=== PATIENT | male | born 1945 | race Caucasian/White ===

== ENCOUNTER → 2016-09-19 | Outpatient (CLI) | payer MEDICARE ==
[~2016-09-19] MED LIST: AMLO5TAB2 PO; ASPI-693 PO; ATOR20TA66 PO; ATOR40TA70 PO; BUDE10.2 IH; BUDE6HFA IH; CATHETER FLUSH 10 ML SYR IV PRN; CEPH500C PO; CITA10TA70 PO; CLOP75TA PO; CLOP75TA28 PO; DCS100C PO; DOXY100C42 PO; HYDR-3454 PO; LEVO25TA5 PO; LOSA1TAB19 PO; LOSA1TAB20 PO; MONT10TA24 PO; NF-GLIP2.5 PO; NITR0.4T SL; OMEG-11 PO; PANT40TA3 PO; PNT40TEC PO; TADA5TAB2 PO; TRAZ-144 PO; VARD20TA30 PO
[2016-09-19 13:01] VITALS: BP 155/88
--- NOTE | 2016-09-20 08:46 | STRESS TEST ---
PROCEDURE PHYSICIAN: DELORES CHENEY DATE OF PROCEDURE: 09/19/2016 RESTING AND POST EXERCISE TECHNETIUM 99M TETROFOSMIN SPECT CT IMAGING ORDERING PHYSICIAN: Tabby Martinez APRN PRIMARY PHYSICIAN: Dr. Cruz. OTHER PHYSICIAN: Dr. Cheney. CLINICAL DIAGNOSES: 1. Chest discomfort. 2. Coronary artery disease. Baseline images were carried out after injection of 10.2 mCi of technetium 99m tetrofosmin. This was followed by exercise on a treadmill. Jacob protocol was employed. Isolated premature ventricular contractions were seen throughout this study, including during the exercise phase. During the recovery phase, there were more premature ventricular contractions, including couplets. The patient exhibited a rate response to exercise but the blood pressure response was hypertensive. The test was stopped on account of fatigue. He also noted some chest discomfort with exercise. In the recovery phase, there was up to 1.[address] segment depression. Review of images at rest and following stress, indicates a small amount of basal inferior perfusion defect. This is transient. Gated images show normal regional wall motion. Normal global left ventricular systolic function. Left ventricular ejection fraction is calculated to be 58%. Left ventricular end-diastolic volume is 93 mL. CONCLUSIONS: 1. This study is indicative of a small amount of basal inferior ischemia. 2. Normal regional wall motion. 3. Normal global left ventricular systolic function with a calculated ejection fraction of 58%. Job ID: [id number] Dictated Date: 09/19/2016 17:26:19 Heading And Priming Operator Date: 09/20/2016 08:41:18 / ki
== END ==
LOC: CARD 11:09
PROVIDERS: ATTEND Nurse Practitioner Family
DX: I25.10 Atherosclerotic heart disease of native coronary artery without angina pectoris (principal); I65.23 Occlusion and stenosis of bilateral carotid arteries; I10 Essential (primary) hypertension; R06.02 Shortness of breath; R07.89 Other chest pain
CPT/HCPCS: 78452; 93017

== ENCOUNTER 2016-10-02 14:40 | Day surgery (SDC) | payer MEDICARE ==
[~2016-10-02] VITALS: Ht 180.3 cm; Wt 99.9 kg
[2016-10-02 14:40] VITALS: BP 126/59
[~2016-10-02 14:40] MED LIST changes: -AMLO5TAB2 PO; -ATOR40TA70 PO; -BUDE10.2 IH; -CLOP75TA28 PO; -LEVO25TA5 PO; -LOSA1TAB19 PO; -MONT10TA24 PO; -NF-GLIP2.5 PO; -PANT40TA3 PO
[2016-10-02] MEDS ORDERED: CLOPIDOGREL 300 MG (PLAVIX) TABLET PO NR (15:00)
--- NOTE | 2016-10-02 15:10 | History & Physicial-Cardiolgy ---
HPI-Cardiology Cardiology Consultation: Date of Consultation 10/02/16 Date of Admission Attending Physician Jeannette Estrada MD Admitting Physician Jeanette Cruz MD Consulting Physician Jeannette ESTRADA MD HPI: Chief Complaint: Chest pain this is a 71-year-old gentleman with history of COPD, previous history of smoking, diabetes, hypertension, hyperlipidemia, known history of significant coronary artery disease with multiple stents placed in the past. he is a patient of Dr. Cheney; however he is having recurrent worse chest discomfort therefore he was sent from Dr. Cheney's office to see me. He presents with recurrent worsening chest pain.chest pain is substernal and recurrent. It is associated with exertion. Rest makes it better. He denies any other significant associated factors. He had a stress test done on 09/19/2016 which was abnormal with ischemia in the basal and inferior regions. Review of Systems-Cardiology Review of Systems Constitutional: No As described under HPI, No no symptoms reported, No chills, No fever, No lightheadedness, No malaise, No tiredness, No weight loss, No weight gain, No other Eyes: No As described under HPI, No no symptoms reported, No blindness, No blurred vision, No contact lenses, No drainage, No decreased acuity, No foreign body sensation, No glasses, No inflammation, No pain, No photophobia, No previous injury, No shadows, No tunnel vision, No other, No vision change Ears/Nose/Throat: No As described under HPI, No no symptoms reported, No chronic hearing loss, No epistaxis, No ear discharge, No ear pain, No loose teeth, No mouth pain, No mouth swelling, No nasal drainage, No nose pain, No recent hearing loss, No throat pain, No throat swelling, No ulcerations, No other Respiratory: No no symptoms reported, No As described under HPI, No cough, No orthopnea, No shortness of breath, No SOB with excertion, No SOB at rest, No stridor, No wheezing, No other Cardiovascular: No no symptoms reported, No As described under HPI, chest pain , No edema, No irregular heart rate, No lightheadedness, No palpitations, No syncope, No other Gastrointestinal: No no symptoms reported, No As described under HPI, No abdomen distended, No abdominal pain, No blood streaked bowels, No constipation , No diarrhea, No difficulty swallowing, No nausea, No poor appetite, No poor fluid intake, No rectal bleeding, No vomiting, No other, No nausea/vomiting/ diarrhea, No stool coloration changes Genitourinary: No no symptoms reported, No As described under HPI, No burning, No dysuria, No discharge, No frequency, No flank pain, No hematuria, No incontinence, No pain, No urgency, No other, No urine frequency changes, No urine coloration changes Musculoskeletal: No no symptoms reported, No As describe under HPI, No back pain, No gout, No joint pain, No joint swelling, No muscle pain, No muscle stiffness, No neck pain, No other Skin: No no symptoms reported, No As described under HPI, No change in color, No change in hair/nails, No dryness, No lesions, No lumps, No rash, No other, No skin related problems, No ulcerations, No rash on exposed areas, No ulcerations on exposed areas Psychiatric/Neurological: No As described under HPI, No anxiety, No depression , No emotional problems, No focal weakness, No headache, No no symptoms reported , No numbness, No other, No pre-existing deficit, No seizure, No syncope, No tingling, No tremors, No weakness TNH-Dndtci-Mybcix Hx Patient Social History Marrital Status: Smoking Status: Former Smoker Former smoker/When Quit: Jan 02, 2012 Immunizations Up To Date Tetanus Booster (TDap): Less than 5yrs Past Medical History PMH As described under Assessment. Family Medical History Family History: Alcoholism G8 BROTHER, Onset:20's - 25 Alzheimer's disease 19 FATHER, Onset:60 years & older Cardiovascular disease 19 FATHER, Onset:60 years & older 19 MOTHER, Onset:60 years & older Cataracts 19 MOTHER, Onset:60 years & older Completed stroke 19 FATHER, Onset:60 years & older Dementia 19 FATHER, Onset:60 years & older Diabetes mellitus 19 FATHER, Onset:60 years & older 19 MOTHER, Onset:60 years & older Hypercholesterolemia 19 FATHER, Onset:60 years & older 19 MOTHER, Onset:60 years & older Hypertension 19 FATHER, Onset:Unknown 19 MOTHER, Onset:Unknown Myocardial infarction 19 FATHER, Onset:60 years & older 19 MOTHER Respiratory disorder G8 BROTHER, Onset:50's - 60 No Family History of: AIDS Abdominal aortic aneurysm [place]'s disease Aphasia Arthritis Asthma Cancer of mouth Colon cancer Congenital disease Congenital heart disease Coronary thrombosis Cystic fibrosis Deafness or hearing loss Drug abuse Dysphasia Fibrocystic disease of breast Gastroenteritis Glaucoma Headache disorder Infertility Kidney disease Neoplasm Not obtainable due to adoption Osteoporosis Parkinson's disease Prostate cancer Psychosocial problem Seizure disorder Severe allergy Thyroid disease Tuberculosis Visual disorder Allergies and Home Medications Allergies Coded Allergies: No Known Drug Allergies (Unverified , 10/29/14) Home Medications Aspirin 81 Mg Tab.chew, 81 MG PO DAILY, (Reported) Atorvastatin 20 Mg Tablet, 40 MG PO HS, (Reported) Budesonide/Formoterol Fumarate 1 Inhaler Aero, 2 PUFF IH BID, (Reported) Cephalexin Monohydrate 500 Mg Capsule, 1 EACH PO QID, #28 Prescribed by: HAO TRAMMELL on 01/03/15 0959 Citalopram Hydrobromide 10 Mg Tablet, 10 MG PO DAILY, (Reported) Takes at 1200 Clopidogrel Bisulfate 75 Mg Tablet, 75 MG PO DAILY, (Reported) Takes at 1200 Doxycycline Monohydrate 100 Mg Capsule, 100 MG PO BID for 10 Days, (Reported) Losartan/Hydrochlorothiazide 1 Each Tablet, 1 EACH PO DAILY, (Reported) Nitroglycerin 0.4 Mg Tab.subl, 0.4 MG SL PRN, (Reported) Dexter-3S/Dha/Epa/Fish Oil 1 Each Capsule, 1,200 MG PO BID, (Reported) Pantoprazole Sod 40 Mg Tab, 40 MG PO DAILY, (Reported) Tadalafil 5 Mg Tablet, 5 MG PO DAILY, (Reported) Takes at 12:00 Trazodone Hcl 50 Mg Tablet, 50 MG PO HS PRN for SLEEP, (Reported) Physical Exam-Cardiology Physical Exam Vital Signs/I&O Capillary Refill : Constitutional: No appears stated age, No AAO x 3, No apparent distress, No PERRL, No well-developed, No well-nourished, No other HEENT: No PERRL, No normal ENT inspection, No TMs normal, No pharynx normal, No scleral icterus (R), No scleral icterus (L), No pale conjunctivae (R), No pale conjunctivae (L), No photophobia, No TM abnormal (R), No TM abnormal (L), No pharyngeal erythema, No tonsillar exudate, No other, No discharge, No EOMI, No hearing is well preserved, No hard of hearing, No oral hygience is good, No ulceration, No xanthelasmas are seen Neck: No non-tender, No full range of motion, No supple, No normal inspection, No carotid bruit, No limited range of motion, No lymphadenopathy (R), No lymphadenopathy (L), No tender lateral, No tender midline, No thyromegaly, No other, No carotid pulses are 2 + bilaterally, No with good upstrokes Respiratory: No accessory muscle use, No respiratory distress, No chest tender , No chest expansion is symmetric, No chest is bilaterally symmetric, No lungs clear to percussion, No lungs clear to auscultation, No crackles, No rhonchi, No rales, No stridor, No wheezing, No pleural rub, No other Cardiovascular: No regular rate-rhythm, No irregularly irregular, No extra beats, No parasternal heave is noted, No JVD, No edema, No bradycardia, No tachycardia, No point of maximal impulse, No cardiac thrills are palpable, No S1 and S2, No gallop/S3, No gallop/S4, No diastolic murmur, No systolic murmur, No friction rub, No click, No other Gastrointestinal: No tender, No soft, No round, No distended, No pulsatile mass , No organomegaly, No guarding, No rebound, No tenderness, No hernia, No mass, No audible bowel sounds, No abnormal bowel sounds, No abdominal bruits, No spleenomegaly, No other Rectal: deferred Extremities: No normal range of motion, No non-tender, No normal inspection, No pedal edema, No calf tenderness, No normal capillary refill, No pelvis stable , No calf tenderness, No inflammation, No pedal edema, No slow capillary refill , No swelling, No other, No abrasion, No clubbing, No cyanosis, No ecchymosis, No laceration, No no lower extremity edema bilateral, No significant edema, No tenderness, No wound Neurologic/Psychiatric: No rescue boat operator II-XII nml as tested, No no motor/sensory deficits, No alert, No normal mood/affect, No oriented x 3, No abnormal cerebellar tests, No abnormal rescue boat operator II-XII, No abnormal gait, No aphasia, No EOM palsy, No facial droop, No motor weakness, No sensory deficit, No depressed affect, No disoriented x 3, No other, No grossly intact, No power is 5/5 both on sides ECG Impression ECG Comment EKG in the office today showed sinus rhythm with no significant ST deviation however inferior T-wave inversions were noted. A/P-Cardiology Assessment/Admission Diagnosis unstable angina, Recent abnormal nuclear stress test, Previous history of significant CAD Plan this is a 71-year-old patient of Dr. Cheney. he has history of diabetes, hypertension, hyperlipidemia, COPD, significant history of CAD with PCI as mentioned below. CAD. H/o 4 RCA stents, one in 2006, one in 2007, 2 in 2013. Last cardiac cath ( November 2014, Dr Ann Marie Dietrich at [facility]) is reported to hae shown 70%mid RCA prior to previously placed stent, treated with Xience 2.75x23 NANCY and another Xience 3.0x8 more proximally; mild CAD in the left cor system, LVEF 60-65%, trace MR, LVEDP 7-9 mmHg, no AoV gradient MPI of 09/19/16 showed a small amount of basal inferior ischemia, normal wall motion, LVEF 58%. he presents with recurrent worsening chest pain. EKG does not show any ST deviation however T-wave inversions are noted in the inferior leads. He had an abnormal nuclear stress test on 09/19/16 and was recommended coronary angiography by Dr. Cheney, but at that point in time the patient wanted to postpone. However, with recurrent chest pain and worsening chest pain the patient is agreeable for coronary angiography. I have discussed at length with the patient. I have recommended an admission now to the hospital for an enoxaparin and and serial cardiac enzymes. we will perform coronary angiography tomorrow afternoon. The patient will continue aspirin, Plavix, statin. After angiography patient will follow with Dr. Cheney as an outpatient. Jeannette ESTRADA MD Oct 02, 2016 3:10 pm
[2016-10-02] MEDS ORDERED: MONT10TA24 PO (15:18)
[2016-10-02 15:30] LABS: BASOPHILS # (AUTO) 0.1 10^3/uL (0.0-0.1); BASOPHILS % (AUTO) 2 % (0-10); EOSINOPHILS # (AUTO) 0.2 10^3/uL (0.0-0.3); EOSINOPHILS % (AUTO) 3 % (0-10); LYMPHOCYTES # (AUTO) 1.6 X 10^3 (1.0-4.0); LYMPHOCYTES % (AUTO) 26 % (12-44); MEAN CORPUSCULAR HEMOGLOBIN 32 PG (25-34); MEAN CORPUSCULAR HGB CONC 36 G/DL (32-36); MEAN CORPUSCULAR VOLUME 89 FL (80-99); MEAN PLATELET VOLUME 9.2 FL (7.4-10.4); MONOCYTES # (AUTO) 0.9 X 10^3 (0.0-1.0); MONOCYTES % (AUTO) 15 % (0-12); NEUTROPHILS # (AUTO) 3.2 X 10^3 (1.8-7.8); NEUTROPHILS % (AUTO) 54 % (42-75); PLATELET COUNT 232 10^3/uL (130-400); RED BLOOD COUNT 5.02 10^6/uL (4.35-5.85); RED CELL DISTRIBUTION WIDTH 12.2 % (10.0-14.5); WHITE BLOOD COUNT 5.9 10^3/uL (4.3-11.0)
[2016-10-02] MEDS ORDERED: ATOR40TA70 PO (15:35)
[2016-10-02] MEDS ORDERED: LOSA1TAB19 PO (15:35)
[2016-10-02 15:39] LABS: INR 1.1 (0.8-1.4); PROTHROMBIN TIME PATIENT 13.4 SEC (12.2-14.7)
[2016-10-02] MEDS ORDERED: PANT40TA3 PO (15:43)
[2016-10-02] MEDS ORDERED: NF-GLIP2.5 PO (15:43)
[2016-10-02] MEDS ORDERED: BUDE10.2 IH (15:43)
[2016-10-02] MEDS ORDERED: CLOP75TA28 PO (15:43)
[2016-10-02] MEDS ORDERED: LEVO25TA5 PO (15:43)
[2016-10-02 15:48] LABS: ALANINE AMINOTRANSFERASE 36 U/L (0-55); ALBUMIN 4.2 G/DL (3.2-4.5); ANION GAP 10 MMOL/L (5-14); ASPARTATE AMINO TRANSFERASE 30 U/L (5-34); BILIRUBIN,TOTAL 0.9 MG/DL (0.1-1.0); BLOOD UREA NITROGEN 17 MG/DL (7-18); BUN/CREATININE RATIO 16; CALCIUM 8.8 MG/DL (8.5-10.1); CARBON DIOXIDE 25 MMOL/L (21-32); CHLORIDE 101 MMOL/L (98-107); CREATININE SERUM 1.04 MG/DL (0.60-1.30); GFR ESTIMATED > 60; GLUCOSE 120 MG/DL (70-105); POTASSIUM 3.4 MMOL/L (3.6-5.0); SODIUM 136 MMOL/L (135-145)
[2016-10-02 15:54] LABS: TROPONIN I < 0.30 NG/ML (<0.30)
[2016-10-02] MEDS ORDERED: NITROGLYCERIN SUBLINGUAL 0.4 MG TAB (NITROSTAT) SL PRN (16:30)
[2016-10-02 16:32] VITALS: BP 138/87
[2016-10-02] MEDS: ENOXAPARIN 100 MG/1 ML (LOVENOX) SYR SC SCH (16:32)
[2016-10-02 20:00] VITALS: BP 146/80
[2016-10-02] MEDS: MONTELUKAST 10 MG (SINGULAIR) TAB PO SCH (21:21)
[2016-10-02] MEDS: ATORVASTATIN 40 MG (LIPITOR) TABLET PO SCH (21:23)
[2016-10-03] VITALS (14 sets, daily range): BP systolic 122–163; BP diastolic 65–101
[2016-10-03 05:05] LABS: MEAN PLATELET VOLUME 9.5 FL (7.4-10.4); RED BLOOD COUNT 5.31 10^6/uL (4.35-5.85); RED CELL DISTRIBUTION WIDTH 12.2 % (10.0-14.5)
[2016-10-03 05:24] LABS: INR 1.1 (0.8-1.4)
[2016-10-03 05:36] LABS: ALANINE AMINOTRANSFERASE 34 U/L (0-55); ALBUMIN 3.9 G/DL (3.2-4.5); ANION GAP 13 MMOL/L (5-14); ASPARTATE AMINO TRANSFERASE 29 U/L (5-34); BILIRUBIN,TOTAL 0.9 MG/DL (0.1-1.0); BLOOD UREA NITROGEN 18 MG/DL (7-18); BUN/CREATININE RATIO 19; CALCIUM 8.8 MG/DL (8.5-10.1); CARBON DIOXIDE 19 MMOL/L (21-32); CHLORIDE 102 MMOL/L (98-107); CREATININE SERUM 0.94 MG/DL (0.60-1.30); GFR ESTIMATED > 60; GLUCOSE 116 MG/DL (70-105); POTASSIUM 3.6 MMOL/L (3.6-5.0); SODIUM 134 MMOL/L (135-145); TOTAL PROTEIN 6.6 G/DL (6.4-8.2)
[2016-10-03 05:42] LABS: TROPONIN I < 0.30 NG/ML (<0.30)
[2016-10-03] MEDS ORDERED: LEVOTHYROXINE 25 MCG (LEVOTHROID) TAB PO SCH (06:30)
[2016-10-03] MEDS ORDERED: PANTOPRAZOLE 40 MG (PROTONIX) TAB PO SCH (07:00)
[2016-10-03] MEDS ORDERED: OMEGA 3 (FISH OIL) 1000 MG CAP PO SCH (07:00)
[2016-10-03] MEDS ORDERED: glipiZIDE XL 2.5 MG (GLUCOTROL XL) TAB PO SCH (07:00)
[2016-10-03] MEDS ORDERED: LOSARTAN 50 MG (COZAAR) TAB PO SCH (09:00)
[2016-10-03] MEDS ORDERED: CLOPIDOGREL 75 MG (PLAVIX) TABLET PO SCH (09:00)
[2016-10-03] MEDS ORDERED: ASPIRIN 81 MG CHEW (CHILDREN'S ASA) PO SCH (09:00)
[2016-10-03] MEDS ORDERED: HYDROCHLOROTHIAZIDE 25 MG (HCTZ) TAB PO SCH (09:00)
[2016-10-03] MEDS ORDERED: HYDROCHLOROTHIAZIDE 12.5 MG (HCTZ) CAP PO SCH (09:00)
[2016-10-03] MEDS ORDERED: NON-FORMULARY MEDICATION 1 EA EA (Omega-3S/Dha/Epa/Fish Oil (Fish Oil 1,200 Mg Softgel) 1, PO SCH (09:00)
[2016-10-03] MEDS ORDERED: NS IV 1000 ML 1,000 ML ONE (09:18)
[2016-10-03] MEDS ORDERED: LIDOCAINE 1% INJ 20 ML (XYLOCAINE) VIAL ONE (09:18)
[2016-10-03] MEDS ORDERED: HEParin (CATH LAB) 2,000 ML IV ONE (09:18)
[2016-10-03] MEDS ORDERED: diphenhydrAMINE 50 MG/ML INJ (BENADRYL) ONE (13:39)
[2016-10-03] MEDS ORDERED: fentaNYL INJECTION 100 MCG/2 ML AMP ONE (13:39)
[2016-10-03] MEDS ORDERED: MIDAZOLAM 5 MG/5 ML (VERSED) VIAL ONE (13:39)
[2016-10-03] MEDS ORDERED: NITROGLYCERIN DRIP 25 MG/D5W 250 ML IV ONE (13:40)
[2016-10-03] MEDS ORDERED: VERAPAMIL 5 MG/2 ML (CALAN) VIAL IV ONE (13:40)
[2016-10-03] MEDS ORDERED: HEParin 1000 UNIT/ML (10ML VIAL) FOR BOLUS ONE (13:40)
[2016-10-03] MEDS: RT-ADVAIR HFA 115/21 MCG PER PUFF IH SCH ×2 (14:26→19:51)
--- NOTE | 2016-10-03 15:09 | Cardiac Procedure Note-CS/ASA ---
Pre-Procedure Note Pre-Op Procedure Note H&P Reviewed The H&P was reviewed, patient examined and no changes noted. Date H&P Reviewed: Oct 03, 2016 Time H&P Reviewed: 14:00 Conscious Sedation Pre-Proced Time Reviewed: 14:00 ASA Class: 3 Airway Mallampati Classification: (southern ute appropriate class) I. II. III, IV Lungs Heart ASA score ASA 1: a normal healthy patient ASA 2: a patient with a mild systemic disease (mid diabetes, controlled hypertension, obesity ASA 3: a patient with a severe systemic disease that limits activity (angina , COPD, prior Myocardial infarction) ASA 4: a patient with an incapacitating disease that is a constant threat to life (CHF, renal failure) ASA 5: a moribund patient not expected to survive 24 hrs. (ruptured aneurysm) ASA 6: a declared brain patient whose organs are being harvested. For emergent operations, add the letter E after the classification Grade 1 Sedation Plan: Analgesia, Amnesia, Plan communicated to team members, Discussed options with patient/fam, Discussed risks with patient/fam Note The patient is an appropriate candidate to undergo the planned procedure, sedation, and anesthesia. The patient immediately re-assessed prior to indication. Jeannette MORRIS MD Oct 03, 2016 3:09 pm
--- NOTE | 2016-10-03 15:11 | Cardiology Post Procedure Note ---
Post-Procedure Note Post-Op Procedure Note Procedure Start Date: Oct 03, 2016 Procedure Start Time: 14:05 Name of Procedure: coronary angiography, LHC, PTCA to mid RCA instent restenosis Findings/Procedure Note severe instent restenosis in mid RCA successfully treated with high pressure PTCA. Anesthesia Type: Conscious Sedation Estimated blood loss (mL): 10 Contrast Amount: 120 Post-Operative Diagnosis Post-operative diagnosis: Successful PTCA to mid RCA (instent restenosis) Jeannette MORRIS MD Oct 03, 2016 3:11 pm
[2016-10-03] MEDS ORDERED: NS IV 1000 ML 1,000 ML IV SCH ×2 (15:15→15:22)
--- NOTE | 2016-10-03 15:25 | Discharge Inst-Post CATH ---
Discharge Inst-CATH Post Cardiac Cath D/C Inst Follow Up/Plan Follow up with Dr Cheney or Tabby Martinez in one week CARDIAC CATH DISCHARGE INSTRUCTIONS *Hold Metformin for 48 hours post heart cath. ACTIVITY * Go Home directly and rest. * Limit activity of the leg (or wrist if it was used) for 7 days including aerobics, swimming, jogging, bicycling, etc. * Restrict stair-climbing for 7 days if possible, if not, climb up with your non -cath leg, then bring together on the same step. * Avoid lifting, pushing, pulling or excessive movement of the affected extremity for 7 days. * Customary sexual activity may be resumed after 2 days-use caution not to use a position that strains or causes pain to the affected extremity. * No driving for 24 hours. * NO SMOKING. * Avoid straining for bowel movements for 7 days. * Gentle walking on level ground is allowed. * Returning to work will depend on the type of procedure and the results. Your doctor will discuss this with you. CALL YOUR DOCTOR FOR ANY OF THE FOLLOWING: *If bleeding from the puncture site occurs- Apply gentle pressure to site with clean cloth and call your doctor or EMS. * If a knot or lump forms under the skin, increases in size, or causes pain. * If bruising appears to be worsening or moving further down your leg instead of disappearing. * Temperature above 101 F. CARE OF YOUR GROIN INCISION; * Bruising or purple discoloration of the skin near the puncture site is common. * You may shower only, no bathtub bathing for 5 days. Be careful to avoid slipping as your leg may feel stiff. * If a closure device was used on your femoral artery, please see the attached guide regarding care of the device and your leg. * REMOVE the dressing from your groin the next day after your procedure in the shower. CARE OF YOUR WRIST INCISION; * Bruising or purple discoloration of the skin near the puncture site is common. * You may shower. * DO NOT submerge wrist. * Remove dressing in 24 hours. Jeannette MORRIS MD Oct 03, 2016 3:25 pm
--- NOTE | 2016-10-03 15:26 | Cardiology Discharge Summary ---
Diagnosis/Chief Complaint Date of Admission Oct 02, 2016 at 2:45 pm Date of Discharge 10/03/2016 Admission Diagnosis unstable angina, abnormal nuclear stress test. Final/Discharge Diagnosis severe mid RCA in-stent restenosis successfully treated with balloon angioplasty Chief Complaint/HPI Chief Complaint/HPI this is a 71-year-old gentleman with history of COPD, previous history of smoking, diabetes, hypertension, hyperlipidemia, known history of significant coronary artery disease with multiple stents placed in the past. he is a patient of Dr. Cheney; however he is having recurrent worse chest discomfort therefore he was sent from Dr. Cheney's office to see me. He presents with recurrent worsening chest pain.chest pain is substernal and recurrent. It is associated with exertion. Rest makes it better. He denies any other significant associated factors. He had a stress test done on 09/19/2016 which was abnormal with ischemia in the basal and inferior regions. Discharge Summary Procedures coronary angiography, successful PTCA to mid RCA in-stent restenosis Discharge Physical Examination stable Hospital Course non-ST elevation [place] was ruled out with negative serial troponin. Coronary angiography was performed which showed severe in-stent restenosis in the mid RCA stent. Successfully treated with high pressure balloon angioplasty. Procedure was done via right radial approach. Discussion & Recommendations Discussion unstable angina, abnormal nuclear stress test in basal inferior territory. Coronary angiography shows severe in-stent restenosis of the mid RCA stent. Successfully treated with high pressure balloon angioplasty. Procedure done via right radial approach. Patient will be discharged later in the evening today if catheter site is normal. Dicharge Diet: Cardiac Diet Activity as Tolerated: Yes Home Medications Reviewed patient Home Medication Reconciliation Form Discharge Home Medications: Reviewed and agree with Discharge Medication list on patient's Discharge Instruction sheet Condition at discharge stable Instructions to patient/family Follow up with Dr Cheney or Tabby Martinez NP in one week Clinical Quality Measures DVT/VTE Risk/Contraindication: Risk Factor Score Per Nursin RFS Level Per Nursing on Admit: 3=Jeannette Park MD Oct 03, 2016 3:26 pm
[2016-10-03] MEDS ORDERED: PATIENT MAY USE OWN MEDS, ALL PO SCH (15:30)
[2016-10-03] MEDS ORDERED: amLODIPine 5 MG (NORVASC) TAB PO SCH (16:00)
[2016-10-03] MEDS: ENOXAPARIN 100 MG/1 ML (LOVENOX) SYR SC SCH (16:12)
[2016-10-03] MEDS ORDERED: AMLO5TAB2 PO (17:37)
[2016-10-03] MEDS: MONTELUKAST 10 MG (SINGULAIR) TAB PO SCH (20:37)
[2016-10-03] MEDS: ATORVASTATIN 40 MG (LIPITOR) TABLET PO SCH (20:37)
[2016-10-04] MEDS ORDERED: CLOPIDOGREL 75 MG (PLAVIX) TABLET PO SCH (09:00)
[2016-10-04] MEDS ORDERED: ASPIRIN E.C. 81 MG (ECOTRIN) TAB PO SCH (09:00)
--- NOTE | 2016-10-04 10:32 | CARDIAC CATHETERIZATION ---
PROCEDURE PHYSICIAN: SADIE ESTRADA CORONARY ANGIOGRAPHY AND PTCA REPORT DATE OF PROCEDURE: 10/03/2016 PERFORMING PHYSICIAN: Dr. Danilo Estrada REFERRING CHILD AND YOUTH PROGRAM ASSISTANT: Dr. Alicia Cheney INDICATIONS: Unstable angina, abnormal nuclear stress test. PREOPERATIVE DIAGNOSIS: Unstable angina, abnormal nuclear stress test. POSTOPERATIVE DIAGNOSIS: Severe in-stent restenosis in the mid RCA, successful balloon angioplasty. HISTORY: Mr. Munguia is a 71-year-old gentleman. He is a patient of Dr. Alicia Cheney. He presented to Dr. Alicia Cheney's office with a complaint of recurrent chest pain. He has previous history of multiple PCI with drug eluting stents in the RCA. Dr. Cheney performed a nuclear stress test which showed basal inferior ischemia. Coronary angiography was recommended; however, the patient at that point in time did not consent to coronary angiography. He presented again yesterday with worsening episode of chest pain. Dr. Cheney was out of town therefore I saw him in the office and directly admitted him to the stepdown unit for ruling out non-STEMI. The working diagnosis was unstable angina. Non-ST elevation VA was ruled out with negative EKG and negative serial troponin. He was consented for urgent coronary angiography. PROCEDURE PERFORMED: 1. Coronary angiography. 2. Left heart catheterization. 3. PTCA to mid RCA. COMPLICATIONS: None. ESTIMATED BLOOD LOSS: 10 mL. Contrast: 120 mL of Omnipaque. Fluoroscopy time: 11.8 minutes. Fluoroscopy dose: 1055 mGy. Conscious sedation. Anticoagulation: IV heparin. PROCEDURE DETAILS: The patient was brought to the Oxyacetylene Cutter after informed consent was taken. All the risks and complications were explained in detail. The patient was draped and prepped in the usual sterile fashion. Access was gained in the right radial artery with a 6-Telugu sheath. The coronary angiography and left heart catheterization was performed with a Alfonso catheter. FINDINGS: 1. LEFT MAIN: Patent. 2. LAD: Mild proximal LAD which is 20 to 30% stenosis. The LAD is a transapical vessel with no other stenosis seen angiographically. 3. Left circumflex artery: There is no significant stenosis in the left circumflex artery. 4. RCA: RCA has stents from the proximal till the distal aspect. There is severe 85% in-stent restenosis in the mid RCA stent. This stent was 2.75 drug eluting stent. 5. Left heart catheterization: LV pressure 112/1 mmHg. LVEDP 8 mmHg, aortic pressure 122/66 mmHg. Normal EF with no wall motion abnormalities. There was no gradient across the aortic valve. RECOMMENDATION: Intervention is recommended to the mid RCA. INTERVENTION DETAILS: We took a JR4 guide, BMW guidewire and IV heparin for anticoagulation. 5000 intravenous heparin was given. ACT was over 220 seconds. The ostium of the RCA is angulated and therefore, we had some difficulty in proper guide placement. However, we were able to get a BMW wire into the vessel and were able to cross the lesion and we placed the BMW wire in the distal RCA. We then took 3.0 x 20 NC Quantum balloon and placed it in the mid RCA at the site of the most severe stenosis and did one long inflation at 20 atmospheres for 1-1/2 minutes. Post angioplasty results showed excellent improvement in flow as well as reduction in stenosis severity. There was 5% residual stenosis at the end of the procedure. In the proximal aspect of the RCA, there is significant angulation and there was pseudo stenosis noted which was not present on coronary angiography. This was likely spasm. Once we were done with the balloon angioplasty, the balloon and wire were taken out. 100 mcg of intracoronary nitroglycerin was given. Post angiogram showed no significant disease in the proximal RCA. The patient tolerated the procedure well and did not have any complications. IMPRESSION/CONCLUSION: 1. Unstable angina with severe in-stent restenosis of the mid RCA. Successful balloon angioplasty of the mid RCA stent. 2. The patient will continue aspirin, Plavix, angiotensin receptor stephani, and statin. Beta blockers were not given because of bradycardia. The patient will be discharged later in the evening. The patient will follow-up with Dr. Cheney or Tabby Martinez APRN in the next one week. Job ID: [id number] Dictated Date: 10/03/2016 15:40:51 Call Or Contact Centre Operator Date: 10/04/2016 10:05:08 / amada MCKEON
== END 2016-10-03 20:50 | disposition home or self-care (01) ==
LOC: CATH 14:40 → ICU 14:40 → UNDOADMIN 14:45 → ICU 14:45 → CATH 10-03 20:50 → UNDODISIN 10-03 20:50 → ENPENDDIS 10-03 21:00
PROVIDERS: ATTEND Internal Medicine Interventional Cardiology
PROC: 02703ZZ Dilation of Coronary Artery, One Artery, Percutaneous Approach (ICD-10-PCS; principal; 2016-10-03)
PROC: 4A023N7 Measurement of Cardiac Sampling and Pressure, Left Heart, Percutaneous Approach (ICD-10-PCS; 2016-10-03)
PROC: B2111ZZ Fluoroscopy of Multiple Coronary Arteries using Low Osmolar Contrast (ICD-10-PCS; 2016-10-03)
PROC: B2151ZZ Fluoroscopy of Left Heart using Low Osmolar Contrast (ICD-10-PCS; 2016-10-03)
DX: T82.855A Stenosis of coronary artery stent, initial encounter (principal); I25.110 Atherosclerotic heart disease of native coronary artery with unstable angina pectoris; E11.9 Type 2 diabetes mellitus without complications; I10 Essential (primary) hypertension; E78.5 Hyperlipidemia, unspecified; J44.9 Chronic obstructive pulmonary disease, unspecified; Z87.891 Personal history of nicotine dependence; Z79.899 Other long term (current) drug therapy
CPT/HCPCS: 36415; 80053; 83880; 84484; 85025; 85027; 85347; 85610; 85730; 92920; 93458; 94640

== ENCOUNTER → 2016-10-02 | Outpatient (CLI) | payer MEDICARE, OTHER ==
[~2016-10-02] MED LIST changes: -CATHETER FLUSH 10 ML SYR IV PRN
--- NOTE | 2016-10-02 10:59 | Diagnostic Imaging Report ---
PROCEDURE: CT chest without contrast. TECHNIQUE: Multiple contiguous axial images were obtained through the chest without the use of intravenous contrast. INDICATION: Followup pulmonary nodule. COMPARISON: Exams from 09/24/2015 and 03/03/2015 performed. FINDINGS: The previously seen nodule measuring 4 mm along the right major fissure is again noted at the level of the hilum, axial image #26 with no significant change. There is also a nodule measuring 4 mm in the right lung apex laterally without significant change. There is no significant consolidation, mass or suspicious nodule seen otherwise. There is upper lobe predominant centrilobular emphysema changes. The heart size is normal. No pericardial or pleural effusion. The thoracic aorta is normal in caliber. No significantly enlarged lymph nodes in the mediastinum or in the axilla seen. No hilar lymphadenopathy. There is diffuse fatty infiltration seen in the liver. Osseous structures demonstrate mild degenerative changes. IMPRESSION: 1. Emphysema. 2. Stable indeterminate 4 mm nodules along the right major fissure at the level of the hilum and in the right lung apex likely related to scars. Another followup study with an unenhanced low dose CT chest protocol is recommended in one year. Dictated by: Dictated on workstation # [id number]
== END ==
LOC: RAD 10:03
PROVIDERS: ATTEND Nurse Practitioner Family
DX: J43.9 Emphysema, unspecified (principal)
CPT/HCPCS: 71250

== ENCOUNTER → 2016-10-02 | Outpatient (CLI) | payer MEDICARE, OTHER ==
--- NOTE | 2016-10-02 10:55 | Diagnostic Imaging Report ---
PROCEDURE: CT abdomen and pelvis without contrast. TECHNIQUE: Multiple contiguous axial images were obtained through the abdomen and pelvis without the use of intravenous contrast. INDICATION: Pain, history of hernia repair. FINDINGS: There is a small umbilical hernia comprised solely of peritoneal fat with no herniated viscus or inflammation. No inguinal hernia. No rectus sheath, fluid collection or hematoma. No other defects in the abdominal wall. Lung base is nonacute. There is heterogeneous fatty infiltration of the liver. No biliary ductal dilatation. Spleen, adrenals and pancreas are unremarkable. There is no hydronephrosis or opaque kidney stone. The air-containing appendix visualized and normal. There are few noninflamed diverticuli at the sigmoid. There is no ascites, abscess, hematoma or fluid collection. There is no bowel, biliary or urinary tract obstruction. There is no mesenteric or retroperitoneal adenopathy. There is no aneurysm. The lung bases and the osseous structures showed no acute abnormality. IMPRESSION: Small umbilical fatty hernia. No other abdominal wall defect, fluid collection or inflammatory process. No obstructive features. Noninflamed diverticulosis. Nonaneurysmal atherosclerosis and mild hepatic steatosis. Dictated by: Dictated on workstation # [id number]
== END ==
LOC: RAD 10:09
PROVIDERS: ATTEND Surgery
DX: K42.9 Umbilical hernia without obstruction or gangrene (principal); K57.30 Diverticulosis of large intestine without perforation or abscess without bleeding; K76.0 Fatty (change of) liver, not elsewhere classified; I70.91 Generalized atherosclerosis
CPT/HCPCS: 74176

== ENCOUNTER 2017-04-18 13:15 | Day surgery (SDC) | payer MEDICARE, OTHER ==
[~2017-04-18] VITALS: Ht 180.3 cm; Wt 99.4 kg
[~2017-04-18 13:15] MED LIST changes: +ACETAMINOPHEN 325 MG TABLET/CAPLET (TYLENOL) PO PRN; +AMLO5TAB2 PO; +ATOR40TA70 PO; +BUDE10.2 IH; +CLOP75TA28 PO; +LEVO25TA5 PO; +LOSA1TAB19 PO; +MONT10TA24 PO; +NF-GLIP2.5 PO; +NITROGLYCERIN 0.4 MG SL TABS BTL 25'S SL PRN; +PANT40TA3 PO; +PATIENT MAY USE OWN MEDS, ALL PO SCH
--- OUTSIDE RECORDS SUMMARY | 2017-04-18 13:23 | XMS REPORT | Clinical Summary ---
Author Author [facility] Organization [facility] Address Unknown Phone Unavailable Care Team Providers Care Therapist'S Assistant Name Role Phone PCP Unavailable Source Comments Some departments are not documenting in the electronic medical record. If you do not see the information that you expected, contact Release of Information in the Health Information Management department at [phone] for further assistance in locating additional records.[facility] Allergies No Known Allergies Current Medications Prescription Sig. Disp. Refills Start End Date Status Date Fish Oil-Fat Acid Take 1 Cap by mouth Twice Active Comb.8-Hb137 (OMEGA Daily. 3-6-9) 1,200 mg PO Cap aspirin EC 81 mg Take 1 Tab by mouth 90 Tab 3 12/04/19 Active tabletIndications: CAD daily. 14 (coronary artery disease) ketoconazole (NIZORAL) 2 Apply to affected area 120 mL 11 12/09/19 Active % topical twice weekly. Leave 14 shampooIndications: lather on scalp for 20 Seborrheic dermatitis minutes. budesonide/formoterol Inhale 2 Puffs by mouth 3 Inhaler 1 09/02/19 Active (SYMBICORT) 160/4.5 mcg twice daily. [address] Take 1 Tab by mouth daily 30 Tab 11 09/02/19 Active (PROTONIX) 40 mg tablet 30 minutes before 15 breakfast. vardenafil(+) (LEVITRA) Take 1 Tab by mouth as 6 Tab 3 09/02/19 Active 20 mg tablet Needed for Erectile 15 dysfunction. Do not take Nitrostat within 24 hrs after this medicine. LEVOTHYROXINE SODIUM Take 0.025 mg by mouth. Active (LEVOTHYROXINE PO) ALBUTEROL IN Inhale by mouth. Active montelukast (SINGULAIR) Take 10 mg by mouth at Active 10 mg tablet bedtime daily. tiotropium bromide Inhale by mouth. Active (SPIRIVA RESPIMAT) 1.25 mcg/actuation mist nitroglycerin (NITROSTAT) 1 Tab every 5 minutes as 25 Tab 2 07/19/19 Active 0.4 mg tabletIndications: needed for Chest Pain. 16 Coronary artery disease involving [place] coronary artery, angina presence unspecified, unspecified whether [place] or transplanted heart losartan-hydrochlorothiaz Take 1 Tab by mouth daily 30 Tab 11 Active yuridia (HYZAAR) 50-12.5 mg after breakfast. 16 tablet clopiDOGrel (PLAVIX) 75 TAKE 1 TABLET BY MOUTH 90 Tab 2 09/24/19 Active mg tablet DAILY 16 atorvastatin (LIPITOR) 40 Take 1 Tab by mouth daily 30 Tab 2 07/28/19 Active mg tablet after dinner. 17 Active Problems Problem Noted Date Chest pain 12/02/2013 Abdominal distention 05/24/2012 Overview: 05/08/12 CT Abdomen-Sigmoid diverticulosis and wall thickening of indeterminate etiology. Recommend colonoscopy for further assessment. No evidence of intestinal obstruction, perforation or abscess. Essential hypertension 09/26/2011 HTN 01/03/2008 History of tobacco abuse 01/03/2008 Overview: A. 1959 patient started smoking 1-1/2 packs daily. B. 05/01 patient continues to smoke 1-1/2 packs daily. C. 12/23/07 quit smoking - was able to quit without using Chantix. D. 12/2007 - Patient started smoking pipe. E. 12/01/10 - patient smoking 1 ppd. F. 05/02/12, smoking 1.5 ppd. G. 11/06/12. CT scan chest with contrast, [facility]. Extensive apical scarring in both lungs. Emphysematous blebs and bulla present bilaterally. No evidence of CHF or pulmonary edema. No pneumonia or pleural effusion, quit smoking Coronary artery disease 01/03/2008 Overview: a. 05/08/07 - Exercise echo at [facility] [place] MAC: LVID 4.5. LA 2.6. EF 60%. Mild LVH. Patient exercised 10.5 minutes and complained of left pectoral discomfort. ECG demonstrated 1.[address] depression inferolateral leads. Echocardiogram showed apical septal and basal inferior hypokinesis. b. 05/10/07 - Cardiac cath at [facility], Dr. Toribio: LM ostial 20%. LAD prox 40%. Circ 30%, OM-2 40%. RCA mid 80%. PCI of RCA done using 2.5 x 20 mm Cypher stent (NANCY). c. 01/02/08 - Recurrent substernal discomfort at night. Cardiac cath a [facility] on 01/20/[address] Dietrich. LM prox 20%, LAD prox 40%, circ mid 30%, OM1 and OM2 normal, RCA in-stent 70% Jenifer 2.5 mm opening. PCI done with Taxus NANCY stent 3.0 x 12 mm inside the previous Cypher stent. LVEF 60%. No MR. d. 07/01/08 exercise echocardiogram. Duration approximately 8 minutes and [address] changes. Normal resting echocardiogram. Improvement with ejection fraction. No evidence of ischemia. e. On 01/06/2009, exercise echo had MAC, LVD 4.0, LA 3.1. The patient exercised or 7-1/2 minutes. No chest pain. EKG showed a 4-mm ST horizontal depression in the inferior lead and persistent ST changes for 10 minutes. Echocardiogram showed mild inferior lateral changes. f. On 01/12/2009, cardiac cath at [facility] showed LVEF 55%, no MR, LM normal, LAD proximal 30% and mid 20%, circ proximally 30% and mid 20%, large OM1 normal, OM2 40%, RCA dominant proximal 40%, proximal to the stent 50% but stent itself is Patent. g. 02/18/13 Exercise Echo: EF 60%. No evidence of ischemia. h. 11/19/12 Jacob Thallium: EF 57%. RCA distribution perfusion abnormality compatible with mild ischemia. Ischemic ECG changes that were not fully resolved at end of recovery. i. December 02, 2013, cardiac cath at with Dr. Dietrich. Had angiogram, EF 60 percent to 65 percent, LVEDP 7. Left main normal, LAD, no significant disease, circumflex no significant disease, RCA proximal normal midportion. Previously 2 stents were noted, and 1 of them had 2-layer stents. There was 60 percent in-stent restenosis. Prior to the edge of the proximal stent had 70 percent stenosis, distal portion was normal. PCI of the RCA was done using a 2.75 x 23 Xience stent over the Taxus stent. Post procedure, good results were noted. Abnormal results of cardiovascular function studies 05/10/2007 Family history of cardiovascular disease Overview: a. Mother with diabetes and had possible SD, angioplasty and possible stent. b. Father had CABG, at age 81. Atypical chest pain Overview: a. September 2006 mostly sore throat almost daily in the morning. After he goes to work it usually goes away. Whenever he is doing nothing he notices a sore throat and also notices increased pain with swallowing and sometimes coughing. He has some occasional substernal chest pain which increases with coughing. b. 04/10/07 Increased chest pain and cough. Patient received one course of antibiotics. c. 05/02/07 Cardiology consult. Examination revealed oral Thrush and throat with red rash with some white patches, highly suggestive of possible geovanni infection. Patient placed on Nystatin. D . 2008 several EGDs -in 2008, and 2009 mild erosions, placed on prevacid. E. Pt believes it was fountain drink " [employer] at [employer], drank daily gave the pain stopped in November 2009. Hyperglycemia Overview: a. 01/21/01 glucose 183, possibly post prandial. Dyslipidemia Overview: a. 01/11/01: TC 205, TG 95, HDL 47, LDL 139 on no medication. b. 01/02/08: TC 164, TG 156, HDL 36, and LDL 100 on Pravachol 40 mg daily. c. 06/30/08: TC 137, TG 129, HDL 36, LDL 75 on simvastatin 40 mg daily. d. In April 2009, the patient did not feel well for some reason. He wanted to get off the simvastatin, and he was changed to Lipitor. Throat discomfort Overview: a. 05/02/07 - Oral and pharyngeal Geovanni infection, treated with Nystatin. b. 12/16/08 - patient presented to [facility] complaining of severe sore throat discomfort and dysphagia. Placed on Diflucan. Advised to seek GI consult at [facility]. c. 01/01/09 - complete relief of the dysphagia symptoms on Diflucan course. Patient underwent EGD at [facility]. By then, his esophagus was free of Geovanni. d. In December 2008, EGD at [facility], by Dr. Bell, with no evidence of Geovanni and mild edema of the lower esophagus, placed on PPI for 1 month. SSS (sick sinus syndrome) (HCC) Overview: a. 02/04/2009, heart rate 45 beats per minute, severe sinus bradycardia, on no medications. B. Mar 2010, HR 51/ bpm. Resolved Problems Problem Noted Date Resolved Date CAD (coronary artery disease) 12/02/2013 01/16/2014 Unstable angina (HCC) 01/03/2008 01/12/2009 Family History Medical History Relation Name Comments Coronary Artery Disease Father Heart Failure Father Coronary Artery Disease Mother Diabetes Mother Relation Name Status Comments Father (Age 81) Mother Social History Tobacco Use Types Packs/Day Years Used Date Former Smoker Cigarettes 52 Quit: 07/10/2012 Smokeless Tobacco: Never Used Tobacco Cessation: Ready to Quit: Yes; Counseling Given: Yes Comments: resumed Alcohol Use Drinks/Week oz/Week Comments Yes 0.0 rarely Sex Assigned at Date Recorded Not on file Last Filed Vital Signs Vital Sign Reading Time Taken Blood Pressure 122/70 07/19/2015 2:51 PM BOTANY TECHNICIAN Pulse 74 07/19/2015 2:47 PM BOTANY TECHNICIAN Temperature 36.4 C (97.5 F) 12/03/2013 7:00 AM CDT Respiratory Rate 18 05/11/2007 9:34 AM BOTANY TECHNICIAN Oxygen Saturation 97% 12/03/2013 7:00 AM CDT Inhaled Oxygen - - Concentration Weight 103.4 kg (228 lb) 07/19/2015 2:47 PM BOTANY TECHNICIAN Height 180.3 cm (5' 10.98") 07/19/2015 2:47 PM BOTANY TECHNICIAN Body Mass Index 31.81 07/19/2015 2:47 PM BOTANY TECHNICIAN Plan of Treatment Health Maintenance Due Date Last Done Comments HEPATITIS C SCREENING 1945 PHYSICAL (COMPREHENSIVE) 1954 EXAM PERTUSSIS VACCINE 1958 TETANUS VACCINE 01/22/1964 COLORECTAL CANCER 1997 SCREENING SHINGLES VACCINE 2007 ABDOMINAL AORTIC ANEURYSM 01/22/2012 SCREENING PREVNAR/PNEUMOVAX (#1) 01/22/2012 INFLUENZA VACCINE 01/23/2017 Results Not on filefrom Last 3 Months
[2017-04-18 13:30] VITALS: BP 159/69
[2017-04-18 13:48] LABS: BASOPHILS # (AUTO) 0.1 10^3/uL (0.0-0.1); BASOPHILS % (AUTO) 1 % (0-10); EOSINOPHILS # (AUTO) 0.1 10^3/uL (0.0-0.3); EOSINOPHILS % (AUTO) 2 % (0-10); LYMPHOCYTES # (AUTO) 1.6 X 10^3 (1.0-4.0); LYMPHOCYTES % (AUTO) 23 % (12-44); MEAN CORPUSCULAR HEMOGLOBIN 32 PG (25-34); MEAN CORPUSCULAR HGB CONC 36 G/DL (32-36); MEAN CORPUSCULAR VOLUME 89 FL (80-99); MEAN PLATELET VOLUME 9.1 FL (7.4-10.4); MONOCYTES % (AUTO) 14 % (0-12); NEUTROPHILS # (AUTO) 4.3 X 10^3 (1.8-7.8); NEUTROPHILS % (AUTO) 61 % (42-75); PLATELET COUNT 237 10^3/uL (130-400); RED BLOOD COUNT 5.03 10^6/uL (4.35-5.85); RED CELL DISTRIBUTION WIDTH 12.3 % (10.0-14.5); WHITE BLOOD COUNT 7.1 10^3/uL (4.3-11.0)
[2017-04-18 14:02] LABS: PROTHROMBIN TIME PATIENT 13.2 SEC (12.2-14.7)
--- NOTE | 2017-04-18 14:04 | Diagnostic Imaging Report ---
EXAMINATION: Portable upright radiograph of the chest. INDICATION: Chest pain. FINDINGS: The lungs appear clear. The heart size is normal. No effusion or pneumothorax. The mediastinum and kendall appear unremarkable. IMPRESSION: Unremarkable exam. Dictated by: Dictated on workstation # [id number]
[2017-04-18 14:10] LABS: ALANINE AMINOTRANSFERASE 33 U/L (0-55); ALBUMIN 4.6 GM/DL (3.2-4.5); ANION GAP 7 MMOL/L (5-14); ASPARTATE AMINO TRANSFERASE 28 U/L (5-34); BILIRUBIN,TOTAL 1.1 MG/DL (0.1-1.0); BLOOD UREA NITROGEN 14 MG/DL (7-18); BUN/CREATININE RATIO 14; CALCIUM 9.3 MG/DL (8.5-10.1); CARBON DIOXIDE 28 MMOL/L (21-32); CHLORIDE 97 MMOL/L (98-107); CREATININE SERUM 0.98 MG/DL (0.60-1.30); GFR ESTIMATED > 60; GLUCOSE 103 MG/DL (70-105); SODIUM 132 MMOL/L (135-145); TOTAL PROTEIN 7.8 GM/DL (6.4-8.2)
[2017-04-18] MEDS ORDERED: OMG1KC PO (14:25)
[2017-04-18] MEDS ORDERED: NITR0.4T39 SL (14:25)
[2017-04-18] MEDS ORDERED: ALBU18HF2 INH (14:25)
[2017-04-18] MEDS ORDERED: ASPI-983 PO (14:25)
[2017-04-18] MEDS ORDERED: AMLO5TAB2 PO (14:25)
[2017-04-18] MEDS: NS IV 1000 ML 1,000 ML IV SCH ×2 (15:55→21:54)
[2017-04-18] MEDS ORDERED: INFLUENZA TRIvalent 2017-2018 0.5 ML/45 MCG SYR IM ONE (16:15)
[2017-04-18] MEDS ORDERED: MIDAZOLAM 5 MG/5 ML (VERSED) VIAL ONE (16:34)
[2017-04-18] MEDS ORDERED: HEParin 1000 UNIT/ML (10ML VIAL) FOR BOLUS ONE (16:34)
[2017-04-18] MEDS ORDERED: fentaNYL INJECTION 100 MCG/2 ML AMP ONE (16:34)
[2017-04-18] MEDS ORDERED: NS IV 1000 ML 2,000 ML ONE (16:34)
[2017-04-18] MEDS ORDERED: diphenhydrAMINE 50 MG/ML INJ (BENADRYL) ONE (16:38)
[2017-04-18] MEDS ORDERED: EPTIFIBATIDE BOLUS 20 ML IV ONE (17:27)
[2017-04-18] MEDS ORDERED: niCARdipine 25 MG/10 ML (CARDENE) AMP IV ONE (17:33)
[2017-04-18] MEDS ORDERED: ATROPINE INJECTION 1 MG/10 ML SYR (ABBOTT) ONE (17:33)
[2017-04-18] MEDS ORDERED: NITROGLYCERIN DRIP 25 MG/D5W 250 ML IV ONE (17:33)
[2017-04-18] MEDS ORDERED: NS (IVPB) 0 ML ONE (17:33)
[2017-04-18] MEDS ORDERED: CLOPIDOGREL 75 MG (PLAVIX) TABLET ONE (17:47)
[2017-04-18] MEDS ORDERED: ASPIRIN 81 MG CHEW (CHILDREN'S ASA) ONE (17:47)
[2017-04-18 18:13] VITALS: BP 149/77
[2017-04-18 18:15] VITALS: BP 143/76
[2017-04-18] MEDS ORDERED: NITROGLYCERIN 0.4 MG SL TABS BTL 25'S SL PRN (18:15)
[2017-04-18] MEDS ORDERED: RT-SYMBICORT 160/4.5 MCG INHALER PER PUFF IH PRN (18:15)
[2017-04-18] MEDS ORDERED: RT-ALBUTEROL HFA (VENTOLIN) PER PUFF IH PRN (18:15)
[2017-04-18] MEDS ORDERED: NS IV 1000 ML 1,000 ML IV SCH (18:17)
[2017-04-18] MEDS ORDERED: ASPI-999 PO (18:22)
--- NOTE | 2017-04-18 18:22 | Discharge Inst-Post CATH ---
Discharge Inst-CATH Post Cardiac Cath D/C Inst Follow Up/Plan F/u with Dr Cheney in 1-2 weeks CARDIAC CATH DISCHARGE INSTRUCTIONS *Hold Metformin for 48 hours post heart cath. ACTIVITY * Go Home directly and rest. * Limit activity of the leg (or wrist if it was used) for 7 days including aerobics, swimming, jogging, bicycling, etc. * Restrict stair-climbing for 7 days if possible, if not, climb up with your non -cath leg, then bring together on the same step. * Avoid lifting, pushing, pulling or excessive movement of the affected extremity for 7 days. * Customary sexual activity may be resumed after 2 days-use caution not to use a position that strains or causes pain to the affected extremity. * No driving for 24 hours. * NO SMOKING. * Avoid straining for bowel movements for 7 days. * Gentle walking on level ground is allowed. * Returning to work will depend on the type of procedure and the results. Your doctor will discuss this with you. CALL YOUR DOCTOR FOR ANY OF THE FOLLOWING: *If bleeding from the puncture site occurs- Apply gentle pressure to site with clean cloth and call your doctor or EMS. * If a knot or lump forms under the skin, increases in size, or causes pain. * If bruising appears to be worsening or moving further down your leg instead of disappearing. * Temperature above 101 F. CARE OF YOUR GROIN INCISION; * Bruising or purple discoloration of the skin near the puncture site is common. * You may shower only, no bathtub bathing for 5 days. Be careful to avoid slipping as your leg may feel stiff. * If a closure device was used on your femoral artery, please see the attached guide regarding care of the device and your leg. * REMOVE the dressing from your groin the next day after your procedure in the shower. CARE OF YOUR WRIST INCISION; * Bruising or purple discoloration of the skin near the puncture site is common. * You may shower. * DO NOT submerge wrist. * Remove dressing in 24 hours. DELORES CHENEY MD [facility] CCDS Apr 18, 2017 18:22
--- NOTE | 2017-04-18 18:23 | Discharge Inst-Cardiology ---
Discharge Inst-Cardiac Discharge Medications New Medications: Aspirin (Aspirin) 81 Mg Tab.chew 81 MG PO DAILY for 90 Days, #90 TAB 3 Refills Continued Medications: Albuterol Sulfate (Ventolin Hfa) 18 Gm Hfa.aer.ad 2 PUFF INH Q4H PRN for SHORTNESS OF BREATH, INHALER Amlodipine Besylate (Amlodipine Besylate) 5 Mg Tablet 5 MG PO DAILY, TAB Atorvastatin Calcium (Atorvastatin Calcium) 40 Mg Tablet 40 MG PO HS, TAB Budesonide/Formoterol Fumarate (Symbicort 160-4.5 Mcg Inhaler) 10.2 Gm Hfa.aer.ad 2 PUFF IH BID PRN for SHORTNESS OF BREATH, INHALER Clopidogrel Bisulfate (Clopidogrel) 75 Mg Tablet 75 MG PO DAILY, TAB Glipizide (Glipizide ER) 2.5 Mg Tab 2.5 MG PO DAILY, TAB Levothyroxine Sodium (Levothyroxine Sodium) 25 Mcg Tablet 25 MCG PO DAILY, TAB Losartan/Hydrochlorothiazide (Losartan-Hctz 100-12.5 mg Tab) 1 Each Tablet 1 TAB PO DAILY, TAB Montelukast Sodium (Montelukast Sodium) 10 Mg Tablet 10 MG PO HS, TAB Nitroglycerin (Nitroglycerin) 0.4 Mg Tab.subl 0.4 MG SL UD PRN for CHEST PAIN, TAB [place] 3 Polyunsat Fatty Acids (Fish Oil 1,000 mg Capsule) 1,000 Mg Cap 1000 MG PO DAILY, CAP Pantoprazole Sodium (Pantoprazole Sodium) 40 Mg Tablet.dr 40 MG PO DAILY, TAB Discontinued Medications: Aspirin (Aspirin EC) 81 Mg Tablet.dr 81 MG PO DAILY, TAB Orders-Post D/C & Referrals Pneu Vac Indicated: Yes DELORES ZHANG MD FACP FAC CCDS Apr 18, 2017 18:23
[2017-04-18] MEDS ORDERED: PATIENT MAY USE OWN MEDS, ALL PO SCH (18:30)
--- NOTE | 2017-04-18 18:30 | Cardiology Discharge Summary ---
Diagnosis/Chief Complaint Date of Admission Apr 18, 2017 at 13:15 Date of Discharge 04/19/17 Admission Diagnosis Recurrent angina, consistent with unstable angina CAD. H/o 4 RCA stents, one in 2006, one in 2007, 2 in 2013. Last cardiac cath ( November 2014, Dr Ann Marie Dietrich at [facility]) is reported to have shown 70%mid RCA prior to previously placed stent, treated with Xience 2.75x23 NANCY and another Xience 3.0x8 more proximally; mild CAD in the left cor system, LVEF 60-65%, trace MR, LVEDP 7-9 mmHg, no AoV gradient. Cardiac cath of October 03, [address] Estrada showed severe 85% in-stent stenosis in the mid RCA stent for which he underwent successful balloon angioplasty MPI of 09/19/16 showed a small amount of basal inferior ischemia, normal wall motion, LVEF 58% COPD, followed by Dr Bowers Elevated hemoglobin of undetermined etiology, followed by Dr Cruz Borderline DM II GERD Mild liver enzyme elevation, etiology unknown, followed by Dr Cruz Testicular hypofunction, managed by Dr Mcfarland Erectile dysfunction Mild bilat carotid art disease per u/s of 10/26/15 Quit tobacco use in 2011 H/o umbilical hernia repair with a mesh in [address] Oliveira Final/Discharge Diagnosis Unstable angina due to instent restenosis in the mid RCA, resolved after successful balloon angioplasty on 04/18/17 CAD. H/o 4 RCA stents, one in 2006, one in 2007, 2 in 2013. Last cardiac cath ( November 2014, Dr Ann Marie Dietrich at [facility]) is reported to have shown 70%mid RCA prior to previously placed stent, treated with Xience 2.75x23 NANCY and another Xience 3.0x8 more proximally; mild CAD in the left cor system, LVEF 60-65%, trace MR, LVEDP 7-9 mmHg, no AoV gradient. Cardiac cath of October 03, [address] Estrada showed severe 85% in-stent stenosis in the mid RCA stent for which he underwent successful balloon angioplasty. Last cath on 04/18/17 for recurrent angina and it showed no significant L cor system disease and 70% instent restenosis in the mid RCA for which he underwent successful balloon angioplasty with Quantum NC 3 x 15 mm balloon LVEF on card cath of 10/25/17 was 60% and LVEDP was 13 mmHg MPI of 09/19/16 showed a small amount of basal inferior ischemia, normal wall motion, LVEF 58% COPD, followed by Dr Bowers Elevated hemoglobin of undetermined etiology, followed by Dr Cruz Borderline DM II GERD Mild liver enzyme elevation, etiology unknown, followed by Dr Cruz Testicular hypofunction, managed by Dr Mcfarland Erectile dysfunction Mild bilat carotid art disease per u/s of 10/26/15 Quit tobacco use in 2011 H/o umbilical hernia repair with a mesh in [address] Oliveira Discharge Summary Procedures Card cath and RCA PTCA on 04/18/17 Hospital Course Pending Labs Laboratory Tests 04/18/17 13:40: White Blood Count 7.1, Red Blood Count 5.03, Hemoglobin 16.3, Hematocrit 45, Mean Corpuscular Volume 89, Mean Corpuscular Hemoglobin 32, Mean Corpuscular Hemoglobin Concent 36, Red Cell Distribution Width 12.3, Platelet Count 237, Mean Platelet Volume 9.1, Neutrophils (%) (Auto) 61, Lymphocytes (%) (Auto) 23, Monocytes (%) (Auto) 14, Eosinophils (%) (Auto) 2, Basophils (%) (Auto) 1, Neutrophils # (Auto) 4.3, Lymphocytes # (Auto) 1.6, Monocytes # (Auto) 1.0, Eosinophils # (Auto) 0.1, Basophils # (Auto) 0.1, Prothrombin Time 13.2, INR Comment 1.0, Activated Partial Thromboplast Time 30, Sodium Level 132, Potassium Level 4.0, Chloride Level 97, Carbon Dioxide Level 28, Anion Gap 7, Blood Urea Nitrogen 14, Creatinine 0.98, Estimat Glomerular Filtration Rate > 60 , BUN/Creatinine Ratio 14, Glucose Level 103, Calcium Level 9.3, Total Bilirubin 1.1, Aspartate Amino Transf (AST/SGOT) 28, Alanine Aminotransferase ( ALT/SGPT) 33, Alkaline Phosphatase 66, Troponin I < 0.30, Total Protein 7.8, Albumin 4.6 Discussion & Recommendations Home Medications Reviewed patient Home Medication Reconciliation Form Discharge Home Medications: Reviewed and agree with Discharge Medication list on patient's Discharge Instruction sheet Instructions to patient/family F/u with Dr Cheney in 1-2 weeks Clinical Quality Measures DVT/VTE Risk/Contraindication: Risk Factor Score Per Nursin RFS Level Per Nursing on Admit: 3=High VICENTE,ALI MD FACP FAC CCDS Apr 18, 2017 18:30
[2017-04-18] MEDS ORDERED: RT-ALBUTEROL SULF 2.5 MG/3 ML PRE-MIX VIAL IH PRN (18:45)
[2017-04-18] MEDS ORDERED: RT-ADVAIR HFA 115/21 MCG PER PUFF IH PRN (19:00)
[2017-04-18] MEDS ORDERED: MONTELUKAST 10 MG (SINGULAIR) TAB PO SCH (21:00)
[2017-04-18] MEDS ORDERED: ATORVASTATIN 40 MG (LIPITOR) TABLET PO SCH (21:00)
[2017-04-19] VITALS: BP 120/72
[2017-04-19 04:00] VITALS: BP 114/64
--- NOTE | 2017-04-19 05:29 | CARDIAC CATHETERIZATION ---
DATE OF SERVICE: 04/18/2017 CARDIAC CATHETERIZATION AND CORONARY INTERVENTION REPORT The patient is a 72-year-old gentleman who is known to have coronary artery disease, primarily consisting of right coronary artery disease for which he underwent multiple percutaneous intervention procedures. He was hospitalized with symptoms suggestive of unstable angina. Cardiac catheterization was carried out after having obtained an informed consent for cardiac catheterization and possible ad hoc percutaneous intervention. DESCRIPTION OF PROCEDURE: He was brought to the cardiac catheterization laboratory in a fasting state. Right groin was prepared and draped in the usual sterile fashion. A 1% lidocaine was used for local anesthesia. Modified Seldinger technique was used to advance a 5-Beninese sheath in the right femoral artery. Angiography of the right femoral artery was carried out through sheath. A 5-Beninese JL4 catheter was used for left coronary angiography, 5-Beninese JR4 catheter was used for right coronary angiography. 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 A 5-Beninese pigtail catheter was used for left heart catheterization and left ventricular angiography. PERCUTANEOUS INTERVENTION TO THE RIGHT CORONARY ARTERY: Following completion of the diagnostic procedure, we carried out balloon angioplasty for in-stent restenosis in the mid right coronary artery. We exchanged the sheath over a wire for a 6-Beninese sheath. We used a 6-Beninese JR4 guide catheter with side holes to engage the right coronary artery. We advanced a BMW wire across the lesion and the tip was placed in the distal vessel. We carried out balloon angioplasty in the mid portion of a long stented area with Emerge 3.0 x 15 mm balloon. This was inflated to 20 atmospheres and full balloon expansion was achieved. Subsequent angiography revealed less than 10% residual stenosis. Flow throughout the vessel was normal. The patient tolerated the procedure well. HEMODYNAMICS: Left ventricular end-diastolic pressure following coronary angiography was 13 mmHg. There was no significant pressure gradient on pullback across the aortic valve. Ascending aortic pressure was 129/60 with a mean of 89 mmHg. LEFT VENTRICULAR ANGIOGRAPHY: Left ventricular angiography was carried out in the right anterior oblique projection. Global left ventricular systolic function is normal. No regional wall motion abnormalities are seen. Left ventricular ejection fraction is approximately 60%. CORONARY ANGIOGRAPHY: Left main coronary artery, left anterior descending artery, left circumflex artery do not exhibit any angiographically significant obstructive coronary artery disease. 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 It has a long stented area in its mid portion and in the middle of the stented area, there was approximately 70% in-stent restenosis to which successful balloon angioplasty was carried out with a 3.0 x 15 mm noncompliant balloon which reduced the stenosis to less than 10% residual and the flow throughout the vessel is normal. CONCLUSIONS: 1. Coronary artery disease primarily consisting of 70% in-stent restenosis in the mid right coronary artery to which successful balloon angioplasty was carried out and it reduced the stenosis to less than 10%. The rest of the coronary system does not exhibit obstructive coronary artery disease, as detailed above. 2. Normal global left ventricular systolic function with ejection fraction approximately 60%. 3. Left ventricular end-diastolic pressure is at the upper end of normal. 4. No significant mitral regurgitation. DISCUSSION AND RECOMMENDATIONS: His current regimen consisting of dual antiplatelet therapy is being continued. The rest of his regimen is being continued, as well. He will be observed overnight and discharge plan is deferred tomorrow, as he remains stable. Job ID: [id number] DocumentID: [id number] Dictated Date: 04/18/2017 18:38:47 Media Monitor Date: 04/19/2017 01:47:29 Dictated By: DELORES ZHANG MD, MA, FACP, FACC,
[2017-04-19] MEDS ORDERED: LEVOTHYROXINE 25 MCG (LEVOTHROID) TAB PO SCH (06:30)
[2017-04-19] MEDS ORDERED: glipiZIDE XL 2.5 MG (GLUCOTROL XL) TAB PO SCH (07:00)
[2017-04-19] MEDS ORDERED: PANTOPRAZOLE 40 MG (PROTONIX) TAB PO SCH (07:00)
--- NOTE | 2017-04-19 07:34 | Cardiology Progress Note ---
Subjective Date Seen by Provider: Apr 19, 2017 Time Seen by Provider: 07:32 Subjective/Events-last exam patient is laying down in bed, feeling well, groin is healing well. Denied any chest pain Review of Systems General: No Chills, No Night Sweats, No Fatigue, No Malaise, No Appetite, No Other HEENT: No Head Aches, No Visual Changes, No Eye Pain, No Ear Pain, No Dysphasia , No Sinus Congestion, No Post Nasal Drip, No Sore Throat, No Other Pulmonary: No Dyspnea, No Cough, No Pleuritic Chest Pain, No Other Cardiovascular: No: Chest Pain, Palpitations, Orthopnea, Paroxysmal Noc. Dyspnea, Edema, Lt Headedness, Other Objective-Cardiology Exam Last Set of Vital Signs Vital Signs 04/19/17 04:00 Temp 97.9 Pulse 65 Resp 16 B/P (MAP) 114/64 Pulse Ox 94 O2 Delivery Nasal Cannula O2 Flow Rate 2.00 Capillary Refill : Less Than 3 Seconds I&O Intake and Output 04/20/17 00:00 Intake Total 200 ml Output Total 1750 ml Balance -1550 ml Intake Oral 200 ml Output Urine Total 1750 ml General: Alert, Oriented X3, Cooperative HEENT: Atraumatic, PERRLA Neck: Supple, No JVD, No Thyromegaly Lungs: Clear to Auscultation, Normal Air Movement Heart: Regular Rate, Normal S1, Normal S2, No Murmurs Abdomen: Normal Bowel Sounds, Soft, No Tenderness, No Hepatosplenomegaly, No Masses Extremities: No Clubbing, No Cyanosis, No Edema, Normal Pulses, No Tenderness/ Swelling Skin: No Rashes, No Breakdown, No Significant Lesion Neuro: Normal Gait, Normal Speech, Strength at 5/5 X4 Ext, Normal Tone, Sensation Intact Psych/Mental Status: Mental Status NL, Mood NL Results Lab Laboratory Tests 04/18/17 13:40 A/P-Cardiology Admission Diagnosis chest pain Coronary artery disease Hypertension Hyperlipidemia Assessment/Plan Chest pain nonspecific etiology Coronary artery disease history multiple intervention, status post balloon angioplasty for in-stent restenosis Hypertension Hyperlipidemia Groin appeared to be healing well, patient will be discharged home and follow- up with Dr. Cheney Clinical Quality Measures DVT/VTE Risk/Contraindication: Risk Factor Score Per Nursin RFS Level Per Nursing on Admit: 3=High DANIELLE ANGELES MD Apr 19, 2017 07:33
[2017-04-19 08:00] VITALS: BP 121/69
[2017-04-19] MEDS ORDERED: OMEGA 3 (FISH OIL) 1000 MG CAP PO SCH (09:00)
[2017-04-19] MEDS ORDERED: LOSARTAN 50 MG (COZAAR) TAB PO SCH (09:00)
[2017-04-19] MEDS ORDERED: ASPIRIN 81 MG CHEW (CHILDREN'S ASA) PO SCH (09:00)
[2017-04-19] MEDS ORDERED: CLOPIDOGREL 75 MG (PLAVIX) TABLET PO SCH ×2 (09:00)
[2017-04-19] MEDS ORDERED: amLODIPine 5 MG (NORVASC) TAB PO SCH (09:00)
[2017-04-19] MEDS ORDERED: HYDROCHLOROTHIAZIDE 12.5 MG (HCTZ) CAP PO SCH (09:00)
== END 2017-04-19 09:00 | disposition home or self-care (01) ==
LOC: ICU 13:15 → CATH 13:15 → UNDOADMIN 13:15 → ICU 13:15 → CATH 04-19 09:00 → UNDODISIN 04-19 09:00
PROVIDERS: ATTEND Internal Medicine Cardiovascular Disease
DX: T82.855A Stenosis of coronary artery stent, initial encounter (principal); I25.110 Atherosclerotic heart disease of native coronary artery with unstable angina pectoris; J43.9 Emphysema, unspecified; I10 Essential (primary) hypertension; D58.2 Other hemoglobinopathies; K21.9 Gastro-esophageal reflux disease without esophagitis; R73.03 Prediabetes; I65.23 Occlusion and stenosis of bilateral carotid arteries; E29.1 Testicular hypofunction; N52.9 Male erectile dysfunction, unspecified; R74.8 Abnormal levels of other serum enzymes; E66.9 Obesity, unspecified; Z68.30 Body mass index [BMI] 30.0-30.9, adult; Z95.5 Presence of coronary angioplasty implant and graft; Z87.891 Personal history of nicotine dependence; Z23 Encounter for immunization
CPT/HCPCS: 36415; 71010; 80053; 84484; 85025; 85610; 85730; 92920; 93458

== ENCOUNTER 2017-08-06 10:52 | Observation (INO) | payer MEDICARE ==
[~2017-08-06] VITALS: Ht 180.3 cm; Wt 102.7 kg
[~2017-08-06 10:52] MED LIST changes: -ACETAMINOPHEN 325 MG TABLET/CAPLET (TYLENOL) PO PRN; +ALBU18HF2 INH; +ASPI-983 PO; +ASPI-999 PO; -LOSA1TAB19 PO; +LOSA1TAB26 PO; +NITR0.4T39 SL; -NITROGLYCERIN 0.4 MG SL TABS BTL 25'S SL PRN; +OMG1KC PO; -PATIENT MAY USE OWN MEDS, ALL PO SCH
[2017-08-06 11:45] VITALS: BP 130/75
[2017-08-06 12:30] LABS: BASOPHILS # (AUTO) 0.1 10^3/uL (0.0-0.1); BASOPHILS % (AUTO) 1 % (0-10); EOSINOPHILS # (AUTO) 0.1 10^3/uL (0.0-0.3); EOSINOPHILS % (AUTO) 2 % (0-10); HEMATOCRIT 44 % (40-54); HEMOGLOBIN 16.5 G/DL (13.3-17.7); LYMPHOCYTES # (AUTO) 1.3 X 10^3 (1.0-4.0); LYMPHOCYTES % (AUTO) 23 % (12-44); MEAN CORPUSCULAR HEMOGLOBIN 33 PG (25-34); MEAN CORPUSCULAR HGB CONC 37 G/DL (32-36); MEAN CORPUSCULAR VOLUME 88 FL (80-99); MEAN PLATELET VOLUME 9.1 FL (7.4-10.4); MONOCYTES # (AUTO) 1.1 X 10^3 (0.0-1.0); MONOCYTES % (AUTO) 18 % (0-12); NEUTROPHILS # (AUTO) 3.3 X 10^3 (1.8-7.8); NEUTROPHILS % (AUTO) 56 % (42-75); PLATELET COUNT 215 10^3/uL (130-400); RED BLOOD COUNT 5.03 10^6/uL (4.35-5.85); RED CELL DISTRIBUTION WIDTH 12.1 % (10.0-14.5); WHITE BLOOD COUNT 5.9 10^3/uL (4.3-11.0)
[2017-08-06 12:49] LABS: ALANINE AMINOTRANSFERASE 49 U/L (0-55); ALBUMIN 4.4 GM/DL (3.2-4.5); ALKALINE PHOSPHATASE 61 U/L (40-136); BILIRUBIN,TOTAL 1.2 MG/DL (0.1-1.0); BUN/CREATININE RATIO 15; CALCIUM 9.1 MG/DL (8.5-10.1); CARBON DIOXIDE 22 MMOL/L (21-32); CHLORIDE 93 MMOL/L (98-107); CHOLESTEROL 119 MG/DL (< 200); CREATININE SERUM 0.91 MG/DL (0.60-1.30); GFR ESTIMATED > 60; GLUCOSE 112 MG/DL (70-105); HDL CHOLESTEROL 37 MG/DL (40-60); POTASSIUM 3.8 MMOL/L (3.6-5.0); TOTAL PROTEIN 7.4 GM/DL (6.4-8.2); TRIGLYCERIDES 102 MG/DL (<150); VLDL CHOLESTEROL 20 MG/DL (5-40)
[2017-08-06 12:51] LABS: BASOPHILS % (MANUAL) 2 %; EOSINOPHILS % (MANUAL) 2 %; LYMPHOCYTES % (MANUAL) 19 %; MONOCYTES % (MANUAL) 13 %; NEUTROPHILS % (MANUAL) 56 %; REACTIVE LYMPHOCYTES 8 %; SODIUM 125 MMOL/L (135-145)
[2017-08-06 12:52] LABS: RBC MORPH NORMAL
[2017-08-06] MEDS ORDERED: ASPI-999 PO (13:28)
[2017-08-06 16:41] VITALS: BP 125/70
[2017-08-06] MEDS ORDERED: RT-SYMBICORT 160/4.5 MCG INHALER PER PUFF IH PRN (18:45)
[2017-08-06] MEDS ORDERED: PATIENT MAY USE OWN MEDS, ALL MC SCH (18:45)
[2017-08-06] MEDS ORDERED: RT-ALBUTEROL HFA (VENTOLIN) PER PUFF IH PRN (18:45)
[2017-08-06] MEDS ORDERED: NITROGLYCERIN 0.4 MG SL TABS BTL 25'S SL PRN (18:45)
[2017-08-06] MEDS ORDERED: RT-ADVAIR HFA 115/21 MCG PER PUFF IH PRN (19:00)
[2017-08-06] MEDS ORDERED: RT-ALBUTEROL SULF 2.5 MG/3 ML PRE-MIX VIAL IH PRN (19:00)
[2017-08-06 19:44] VITALS: BP 145/67
[2017-08-06] MEDS ORDERED: MONTELUKAST 10 MG (SINGULAIR) TAB PO SCH (21:00)
[2017-08-06] MEDS ORDERED: ATORVASTATIN 40 MG (LIPITOR) TABLET PO SCH (21:00)
[2017-08-06] MEDS: NS IV 1000 ML 1,000 ML IV SCH (22:17)
[2017-08-07] VITALS (14 sets, daily range): BP systolic 106–174; BP diastolic 57–85
[2017-08-07 03:50] LABS: ALANINE AMINOTRANSFERASE 42 U/L (0-55); ALBUMIN 3.9 GM/DL (3.2-4.5); ALKALINE PHOSPHATASE 58 U/L (40-136); BILIRUBIN,TOTAL 0.8 MG/DL (0.1-1.0); BUN/CREATININE RATIO 16; CALCIUM 8.7 MG/DL (8.5-10.1); CARBON DIOXIDE 22 MMOL/L (21-32); CHLORIDE 96 MMOL/L (98-107); CREATININE SERUM 0.93 MG/DL (0.60-1.30); GFR ESTIMATED > 60; GLUCOSE 126 MG/DL (70-105); MAGNESIUM 1.9 MG/DL (1.8-2.4); POTASSIUM 3.9 MMOL/L (3.6-5.0); SODIUM 130 MMOL/L (135-145); TOTAL PROTEIN 6.7 GM/DL (6.4-8.2)
[2017-08-07 03:53] LABS: BASOPHILS # (AUTO) 0.1 10^3/uL (0.0-0.1); BASOPHILS % (AUTO) 1 % (0-10); EOSINOPHILS # (AUTO) 0.2 10^3/uL (0.0-0.3); EOSINOPHILS % (AUTO) 2 % (0-10); HEMATOCRIT 43 % (40-54); HEMOGLOBIN 15.9 G/DL (13.3-17.7); LYMPHOCYTES # (AUTO) 1.7 X 10^3 (1.0-4.0); LYMPHOCYTES % (AUTO) 28 % (12-44); MEAN CORPUSCULAR HEMOGLOBIN 33 PG (25-34); MEAN CORPUSCULAR HGB CONC 37 G/DL (32-36); MEAN CORPUSCULAR VOLUME 88 FL (80-99); MEAN PLATELET VOLUME 9.2 FL (7.4-10.4); MONOCYTES # (AUTO) 0.9 X 10^3 (0.0-1.0); MONOCYTES % (AUTO) 15 % (0-12); NEUTROPHILS # (AUTO) 3.3 X 10^3 (1.8-7.8); NEUTROPHILS % (AUTO) 54 % (42-75); PLATELET COUNT 215 10^3/uL (130-400); RED BLOOD COUNT 4.89 10^6/uL (4.35-5.85); RED CELL DISTRIBUTION WIDTH 12.3 % (10.0-14.5); WHITE BLOOD COUNT 6.2 10^3/uL (4.3-11.0)
[2017-08-07] MEDS ORDERED: LEVOTHYROXINE 25 MCG (LEVOTHROID) TAB PO SCH (06:30)
[2017-08-07] MEDS ORDERED: CATHETER FLUSH 10 ML SYR IV PRN (07:00)
[2017-08-07] MEDS ORDERED: glipiZIDE XL 2.5 MG (GLUCOTROL XL) TAB PO SCH (07:00)
[2017-08-07] MEDS: NS IV 1000 ML 1,000 ML IV SCH ×3 (07:00→19:02)
[2017-08-07] MEDS: PANTOPRAZOLE 40 MG (PROTONIX) TAB PO SCH ×2 (07:00→13:53)
--- NOTE | 2017-08-07 08:21 | Consultation ---
History of Present Illness History of Present Illness Patient Consulted On(kori/time) 08/07/17 08:16 Date Seen by Provider: Aug 07, 2017 Time Seen by Provider: 08:16 Reason for Visit: CHEST PAIN History of Present Illness PT IS A 72 Y/O MALE WHO IS KNOWN TO ME FROM CLINIC. HE PRESENTED TO DR. MORRIS' S OFFICE YESTERDAY FOR AN ACUTE CHEST PAIN EVALUATION. MR. BERNAL HAS EXTENSIVE CAD HISTORY WITH MULTIPLE STENTS HAVING BEEN PLACED IN THE PAST, AND IT WAS DETERMINED BY DR. MORRIS THAT THE PATIENT NEEDED ACUTE ADMISSION FOR CHEST PAIN WORK-UP. UPON ADMISSION LABS IT WAS FOUND THAT MR. BERNAL WAS HYPONATREMIC AND I WAS CONSULTED FOR MANAGEMENT OF HYPONATREMIA. UPON REVIEW OF HIS PREVIOUS OFFICE LABS, IT APPEARS THAT MR. BERNAL'S CHRONIC SODIUM LEVELS BORDER ON THE LOW END OF NORMAL AVERAGING AROUND 132. PT ALSO REPORTS EPIGASTRIC ABDOMINAL DISCOMFORT Allergies and Home Medications Allergies Coded Allergies: No Known Drug Allergies (Unverified , 10/29/14) Home Medications Albuterol Sulfate 18 Gm Hfa.aer.ad, 2 PUFF INH Q4H PRN for SHORTNESS OF BREATH, (Reported) Aspirin 81 Mg Tab.chew, 81 MG PO DAILY, (Reported) Atorvastatin Calcium 40 Mg Tablet, 40 MG PO HS, (Reported) Budesonide/Formoterol Fumarate 10.2 Gm Hfa.aer.ad, 2 PUFF IH BID PRN for SHORTNESS OF BREATH, (Reported) Clopidogrel Bisulfate 75 Mg Tablet, 75 MG PO DAILY, (Reported) Glipizide 2.5 Mg Tab, 2.5 MG PO DAILY, (Reported) Levothyroxine Sodium 25 Mcg Tablet, 25 MCG PO DAILY, (Reported) Losartan/Hydrochlorothiazide 1 Each Tablet, 1 TAB PO DAILY, (Reported) Montelukast Sodium 10 Mg Tablet, 10 MG PO HS, (Reported) Nitroglycerin 0.4 Mg Tab.subl, 0.4 MG SL UD PRN for CHEST PAIN, (Reported) [place] 3 Polyunsat Fatty Acids 1,000 Mg Cap, 1,000 MG PO DAILY, (Reported) Pantoprazole Sodium 40 Mg Tablet.dr, 40 MG PO DAILY, (Reported) Past Pbiugxf-Nxnuzb-Wceurs Hx Patient Social History Alcohol Use: Occasionally Uses Alcohol Beverage of Choice: Beer Recreational Drug Use: No Smoking Status: Former Smoker Former Smoker, Quit: Jun 25, 2011 Recent Foreign Travel: No Contact w/Someone Who Travel: No Recent Infectious Disease Expo: No Recent Hopitalizations: No Immunizations Up To Date Tetanus Booster (TDap): Less than 5yrs Date of Influenza Vaccine: Jun 05, 2017 Seasonal Allergies Seasonal Allergies: No Surgeries History of Surgeries: No (UMBILICAL HERNIA, HEMORROIDECTOMY, CYSTS REMOVED FROM BACK) Surgeries: Abdominal, Adenoidectomy, Cardiac, Coronary Stent, Tonsillectomy Respiratory History of Respiratory Disorde: Yes Respiratory Disorders: COPD, Emphysema Currently Using CPAP: No Currently Using BIPAP: No Cardiovascular History of Cardiac Disorders: Yes (CATH--STENTS X 4) Cardiac Disorders: Coronary Artery Disease, High Cholesterol, Hypertension Neurological History of Neurological Disord: No Reproductive System Hx Reproductive Disorders: No Sexually Transmitted Disease: No Genitourinary History of Genitourinary Disor: No Gastrointestinal History of Gastrointestinal Di: Yes Gastrointestinal Disorders: Gastroesophageal Reflux, Chronic Constipation Musculoskeletal History of Musculoskeletal Dis: Yes Musculoskeletal Disorders: Arthritis, Back Injury, Chronic Back Pain Endocrine History of Endocrine Disorders: Yes HEENT History of HEENT Disorders: Yes (cataracts removed x 2-3 weeks ago) HEENT Disorders: Cataract Hearing Impairment: Hard of Hearing Cancer History of Cancer: No Psychosocial History of Psychiatric Problem: No Behavioral Health Disorders: Anxiety, Depression Integumentary History of Skin or Integumenta: No Blood Transfusions History of Blood Disorders: No Adverse Reaction to a Blood Tr: No Family Medical History Family Medial History: Alcoholism G8 BROTHER, Onset:20's - 25 Alzheimer's disease 19 FATHER, Onset:60 years & older Cardiovascular disease 19 FATHER, Onset:60 years & older 19 MOTHER, Onset:60 years & older Cataracts 19 MOTHER, Onset:60 years & older Completed stroke 19 FATHER, Onset:60 years & older Dementia 19 FATHER, Onset:60 years & older Diabetes mellitus 19 FATHER, Onset:60 years & older 19 MOTHER, Onset:60 years & older Hypercholesterolemia 19 FATHER, Onset:60 years & older 19 MOTHER, Onset:60 years & older Hypertension 19 FATHER, Onset:Unknown 19 MOTHER, Onset:Unknown Myocardial infarction 19 FATHER, Onset:60 years & older 19 MOTHER Respiratory disorder G8 BROTHER, Onset:50's - 60 No Family History of: AIDS Abdominal aortic aneurysm Jan's disease Aphasia Arthritis Asthma Cancer of mouth Colon cancer Congenital disease Congenital heart disease Coronary thrombosis Cystic fibrosis Deafness or hearing loss Drug abuse Dysphasia Fibrocystic disease of breast Gastroenteritis Glaucoma Headache disorder Infertility Kidney disease Neoplasm Not obtainable due to adoption Osteoporosis Parkinson's disease Prostate cancer Psychosocial problem Seizure disorder Severe allergy Thyroid disease Tuberculosis Visual disorder Review of Systems-General Constitutional: No chills, No diaphoresis, No fever, No malaise, No weakness EENTM: No hoarseness, No throat pain Respiratory: No cough, No dyspnea on exertion, No short of breath Cardiovascular: No chest pain, No edema, Hx of Intervention Gastrointestinal: abdominal pain (RUQ, LUQ) Genitourinary: no symptoms reported Musculoskeletal: no symptoms reported Skin: no symptoms reported Psychiatric/Neurological: Denies Anxiety, Denies Depressed All Other Systems Reviewed Negative Unless Noted: Yes Physical Exam-General Problems Physical Exam Vital Signs Vital Signs - First Documented 08/06/17 11:45 Temp 97.6 Pulse 56 Resp 18 B/P (MAP) 130/75 (93) Pulse Ox 99 O2 Delivery Room Air Capillary Refill : General Appearance: WD/WN, no apparent distress Eyes: Bilateral Eye Normal Inspection, Bilateral Eye PERRL, Bilateral Eye EOMI HEENT: PERRL/EOMI, pharynx normal Neck: non-tender, normal inspection Respiratory: chest non-tender, lungs clear, normal breath sounds, no respiratory distress Cardiovascular: regular rate, rhythm, no edema Gastrointestinal: normal bowel sounds, soft, tenderness (MILDLY TTP OVER EPIGASTRIUM) Back: normal inspection, no CVA tenderness, no vertebral tenderness Extremities: normal range of motion, non-tender, normal inspection, normal capillary refill Neurologic/Psychiatric: wood grinder II-XII nml as tested, no motor/sensory deficits, alert, normal mood/affect, oriented x 3 Skin: warm/dry Lymphatic: no adenopathy Assessment/Plan Assessment/Plan Admission Diagnosis/Plan HYPONATREMIA CHEST PAIN HYPERTENSION CORONARY ARTERY DISEASE DIABETES MELLITUS HYPOTHYROIDISM HYPONATREMIA - IMPROVED AFTER INITIATION OF IV FLUIDS, MONITOR LEVELS, WILL ADJUST MEDICATION - STOP DIURETIC THERAPY. CHEST PAIN - DEFER TO DR. MORRIS - WORK-UP WITH LABS THUS FAR NEGATIVE FOR TROPONIN ELEVATION. HYPERTENSION - STABLE - CONTINUE HOME MEDICATION EXCEPT STOP DIURETIC THERAPY. CORONARY ARTERY DISEASE - DEFER TO DR. MORRIS. DIABETES MELLITUS - RESUME GLIPIZIDE, MONITOR FSBS HYPOTHYROIDISM - RESUME LEVOTHYROXINE THANK YOU FOR THIS CONSULTATION. PT SEEN ON 08/08/17 DUE TO PT NOT IN ROOM AT ATTEMPTS TO EVALUATE PATIENT ON 08/07. (PT WAS HAVING STRESS TESTING, THEN HEART CATHETERIZATION) DISCHARGE PT TO HOME TODAY - FOLLOW UP IN MY OFFICE ON 08/16/17 Clinical Quality Measures DVT/VTE Risk/Contraindication: Risk Factor Score Per Nursin RFS Level Per Nursing on Admit: 2=Moderate MORRIS FOX MD Aug 07, 2017 08:21
[2017-08-07] MEDS ORDERED: REGADENOSON 0.4 MG/5 ML SYR (LEXISCAN) IV ONE ×2 (08:32→09:30)
[2017-08-07] MEDS ORDERED: HYDROCHLOROTHIAZIDE 12.5 MG (HCTZ) CAP PO SCH (09:00)
[2017-08-07] MEDS ORDERED: CLOPIDOGREL 75 MG (PLAVIX) TABLET PO SCH (09:00)
[2017-08-07] MEDS: LOSARTAN 100 MG (COZAAR) TABLET PO SCH ×2 (09:00→13:52)
[2017-08-07] MEDS: ASPIRIN E.C. 81 MG (ECOTRIN) TAB PO SCH (09:00)
[2017-08-07] MEDS: CLOPIDOGREL 75 MG (PLAVIX) TABLET PO SCH (09:00)
[2017-08-07] MEDS: OMEGA 3 (FISH OIL) 1000 MG CAP PO SCH ×2 (09:00→13:53)
[2017-08-07] MEDS ORDERED: ASPIRIN 81 MG CHEW (CHILDREN'S ASA) PO SCH (09:00)
--- NOTE | 2017-08-07 09:22 | History & Physicial-Cardiolgy ---
HPI-Cardiology Cardiology Consultation: Date of Consultation 08/07/17 Date of Admission Attending Physician Jeannette Estrada MD Admitting Physician Jeanette Cruz MD Consulting Physician Jeannette ESTRADA MD HPI: Time Seen by Provider: 09:22 Chief Complaint: Chest pain this is a 72-year-old gentleman with history of COPD, previous history of smoking, diabetes, hypertension, hyperlipidemia, known history of significant coronary artery disease with multiple stents placed in the past. he is a patient of Dr. Cheney; however he is having recurrent worse chest discomfort therefore he was sent from Dr. Cheney's office to see me. He presents with recurrent worsening chest pain.chest pain is substernal and recurrent. It is associated with exertion. Rest makes it better. He denies any other significant associated factors. Mild improvement with nitroglycerin. No radiation. Intensity 10. Review of Systems-Cardiology Review of Systems Constitutional: As described under HPI, No As described under HPI, No no symptoms reported, No chills, No fever, No lightheadedness Eyes: No As described under HPI, No no symptoms reported, No blindness, No blurred vision, No contact lenses, No drainage, No decreased acuity, No foreign body sensation, No pain, No vision change Ears/Nose/Throat: No As described under HPI, No no symptoms reported, No chronic hearing loss, No ear discharge, No ear pain, No nasal drainage, No ulcerations Respiratory: No no symptoms reported, As described under HPI, No As described under HPI, No cough, No orthopnea, No shortness of breath, No SOB with excertion Cardiovascular: No no symptoms reported, As described under HPI, No As described under HPI, chest pain, No edema, No irregular heart rate, No lightheadedness, No palpitations Gastrointestinal: No no symptoms reported, No As described under HPI, No abdomen distended, No abdominal pain, No blood streaked bowels, No constipation , No diarrhea, No nausea, No vomiting, No stool coloration changes Genitourinary: No As described under HPI, No burning, No dysuria, No discharge , No frequency, No flank pain, No hematuria, No urgency Skin: No rash, No skin related problems, No ulcerations Psychiatric/Neurological: No anxiety, No depression, No seizure, No focal weakness, No syncope Hematologic: No bleeding abnormalities XQN-Pedanu-Hsxoew Hx Patient Social History Alcohol Use: Occasionally Uses Recreational Drug Use: No Smoking Status: Former Smoker Former smoker/When Quit: Jan 02, 2012 Recent Foreign Travel: No Recent Infectious Disease Expo: No Physical Abuse Screen: No Sexual Abuse: No Immunizations Up To Date Tetanus Booster (TDap): Less than 5yrs Date of Influenza Vaccine: Jun 05, 2017 Past Medical History PMH As described under Assessment. Family Medical History Family History: Alcoholism G8 BROTHER, Onset:20's - 25 Alzheimer's disease 19 FATHER, Onset:60 years & older Cardiovascular disease 19 FATHER, Onset:60 years & older 19 MOTHER, Onset:60 years & older Cataracts 19 MOTHER, Onset:60 years & older Completed stroke 19 FATHER, Onset:60 years & older Dementia 19 FATHER, Onset:60 years & older Diabetes mellitus 19 FATHER, Onset:60 years & older 19 MOTHER, Onset:60 years & older Hypercholesterolemia 19 FATHER, Onset:60 years & older 19 MOTHER, Onset:60 years & older Hypertension 19 FATHER, Onset:Unknown 19 MOTHER, Onset:Unknown Myocardial infarction 19 FATHER, Onset:60 years & older 19 MOTHER Respiratory disorder G8 BROTHER, Onset:50's - 60 No Family History of: AIDS Abdominal aortic aneurysm [place]'s disease Aphasia Arthritis Asthma Cancer of mouth Colon cancer Congenital disease Congenital heart disease Coronary thrombosis Cystic fibrosis Deafness or hearing loss Drug abuse Dysphasia Fibrocystic disease of breast Gastroenteritis Glaucoma Headache disorder Infertility Kidney disease Neoplasm Not obtainable due to adoption Osteoporosis Parkinson's disease Prostate cancer Psychosocial problem Seizure disorder Severe allergy Thyroid disease Tuberculosis Visual disorder Allergies and Home Medications Allergies Coded Allergies: No Known Drug Allergies (Unverified , 10/29/14) Home Medications Albuterol Sulfate 18 Gm Hfa.aer.ad, 2 PUFF INH Q4H PRN for SHORTNESS OF BREATH, (Reported) Aspirin 81 Mg Tab.chew, 81 MG PO DAILY, (Reported) Atorvastatin Calcium 40 Mg Tablet, 40 MG PO HS, (Reported) Budesonide/Formoterol Fumarate 10.2 Gm Hfa.aer.ad, 2 PUFF IH BID PRN for SHORTNESS OF BREATH, (Reported) Clopidogrel Bisulfate 75 Mg Tablet, 75 MG PO DAILY, (Reported) Glipizide 2.5 Mg Tab, 2.5 MG PO DAILY, (Reported) Levothyroxine Sodium 25 Mcg Tablet, 25 MCG PO DAILY, (Reported) Losartan/Hydrochlorothiazide 1 Each Tablet, 1 TAB PO DAILY, (Reported) Montelukast Sodium 10 Mg Tablet, 10 MG PO HS, (Reported) Nitroglycerin 0.4 Mg Tab.subl, 0.4 MG SL UD PRN for CHEST PAIN, (Reported) [place] 3 Polyunsat Fatty Acids 1,000 Mg Cap, 1,000 MG PO DAILY, (Reported) Pantoprazole Sodium 40 Mg Tablet.dr, 40 MG PO DAILY, (Reported) Physical Exam-Cardiology Physical Exam Vital Signs/I&O Vital Sign - Last 12Hours 08/07/17 08/07/17 08/07/17 08/07/17 04:00 04:00 07:00 07:37 Temp 98.6 Pulse 62 46 Resp 20 B/P (MAP) 111/65 (80) Pulse Ox 94 O2 Delivery Room Air Room Air Nasal Cannula O2 Flow Rate 2.00 08/07/17 08/07/17 08/07/17 08/07/17 07:59 08:00 09:00 12:00 Temp 97.7 Pulse 52 Resp 16 B/P (MAP) 106/84 (91) Pulse Ox 97 O2 Delivery Room Air Room Air Room Air Room Air Intake and Output 08/07/17 00:00 Intake Total 600 ml Balance 600 ml Capillary Refill : Constitutional: appears stated age, No apparent distress, well-developed, well- nourished HEENT: PERRL, No normal ENT inspection, No TMs normal, No pharynx normal, No scleral icterus (R), No scleral icterus (L), No pale conjunctivae (R), No pale conjunctivae (L), No photophobia, No TM abnormal (R), No TM abnormal (L), No pharyngeal erythema, No tonsillar exudate, No other, No discharge, No EOMI, hearing is well preserved, No hard of hearing, oral hygience is good, No ulceration, No xanthelasmas are seen Neck: No carotid bruit, carotid pulses are 2 + bilaterally Respiratory: No accessory muscle use, No respiratory distress, No chest tender , No chest expansion is symmetric, chest is bilaterally symmetric, No lungs clear to percussion, lungs clear to auscultation, No crackles, No rhonchi, No rales, No stridor, No wheezing, No pleural rub, No other Cardiovascular: regular rate-rhythm, No irregularly irregular, No extra beats, No parasternal heave is noted, No JVD, No edema, No bradycardia, No tachycardia , No point of maximal impulse, No cardiac thrills are palpable, S1 and S2, No gallop/S3, No gallop/S4, No diastolic murmur, No systolic murmur, No friction rub, No click, No other Gastrointestinal: No tender, No soft, No round, No distended, No pulsatile mass , No organomegaly, No guarding, No rebound, No tenderness, No hernia, No mass, No audible bowel sounds, No abnormal bowel sounds, No abdominal bruits, No spleenomegaly, No other Rectal: deferred Extremities: No normal range of motion, No non-tender, No normal inspection, No pedal edema, No calf tenderness, No normal capillary refill, No pelvis stable , No calf tenderness, No inflammation, No pedal edema, No slow capillary refill , No swelling, No other, No abrasion, No clubbing, No cyanosis, No ecchymosis, No laceration, No no lower extremity edema bilateral, No significant edema, No tenderness, No wound Neurologic/Psychiatric: alert, oriented x 3, power is 5/5 both on sides Skin: No normal color, No warm/dry, No cyanosis, No cool, No diaphoresis, No damp, No ecchymosis, No jaundice, No mottled, No pallor, No rash, No tattoos/ piercings, No ulcerations, No rash on exposed areas, No ulcerations on exposed areas, No other Data Review Labs Laboratory Tests 08/06/17 18:20: Troponin I < 0.30 08/07/17 00:50: Troponin I < 0.30 08/07/17 03:10: White Blood Count 6.2, Red Blood Count 4.89, Hemoglobin 15.9, Hematocrit 43, Mean Corpuscular Volume 88, Mean Corpuscular Hemoglobin 33, Mean Corpuscular Hemoglobin Concent 37H, Red Cell Distribution Width 12.3, Platelet Count 215, Mean Platelet Volume 9.2, Neutrophils (%) (Auto) 54, Lymphocytes (%) (Auto) 28, Monocytes (%) (Auto) 15H, Eosinophils (%) (Auto) 2, Basophils (%) (Auto) 1, Neutrophils # (Auto) 3.3, Lymphocytes # (Auto) 1.7, Monocytes # (Auto) 0.9, Eosinophils # (Auto) 0.2, Basophils # (Auto) 0.1, Sodium Level 130L, Potassium Level 3.9, Chloride Level 96L, Carbon Dioxide Level 22, Anion Gap 12, Blood Urea Nitrogen 15, Creatinine 0.93, Estimat Glomerular Filtration Rate > 60, BUN/ Creatinine Ratio 16, Glucose Level 126H, Calcium Level 8.7, Magnesium Level 1.9 , Total Bilirubin 0.8, Aspartate Amino Transf (AST/SGOT) 45H, Alanine Aminotransferase (ALT/SGPT) 42, Alkaline Phosphatase 58, Total Protein 6.7, Albumin 3.9 ECG Impression ECG Initial ECG Rhythm: Normal Sinus Initial ECG Impression: Nonspecific Changes A/P-Cardiology Assessment/Admission Diagnosis Unstable angina, CAD, Hypertension, hyperlipidemia, Diabetes Plan this is a 72-year-old patient of Dr. Cheney. he has history of diabetes, hypertension, hyperlipidemia, COPD, significant history of CAD with PCI as mentioned below. CAD. H/o 4 RCA stents, one in 2006, one in 2007, 2 in 2013. Last cardiac cath ( November 2014, Dr Ann Marie Dietrich at [facility]) is reported to hae shown 70%mid RCA prior to previously placed stent, treated with Xience 2.75x23 NANCY and another Xience 3.0x8 more proximally; mild CAD in the left cor system, LVEF 60-65%, trace MR, LVEDP 7-9 mmHg, no AoV gradient. Coronary angiography on 10/03/2016 showed severe 85 percent in-stent restenosis in the mid RCA stent which was treated successfully with balloon angioplasty. Repeat coronary angiography 04/18/2017 showed 70 percent in-stent restenosis in the mid RCA treated successfully with balloon angioplasty. MPI of 09/19/16 showed a small amount of basal inferior ischemia, normal wall motion, LVEF 58%. he presents with recurrent worsening chest pain. EKG does not show any ST deviation .acute coronary syndrome ruled out with negative serial troponin. No significant ST-T wave abnormalities. Pharmacological nuclear stress test and echocardiogram. The patient will continue aspirin and Plavix. Diabetes: Continue glipizide. Hypertension: Well controlled. Continue hydrochlorothiazide and losartan. Hyperlipidemia: On atorvastatin 40 mg every day. Continue same dose. Clinical Quality Measures DVT/VTE Risk/Contraindication: Risk Factor Score Per Nursin RFS Level Per Nursing on Admit: 2=Moderate Jeannette ESTRADA MD Aug 07, 2017 9:22 am
[2017-08-07] MEDS ORDERED: MIDAZOLAM 5 MG/5 ML (VERSED) VIAL ONE (11:04)
[2017-08-07] MEDS ORDERED: LIDOCAINE 1% INJ 50 ML (XYLOCAINE) VIAL ONE (11:04)
[2017-08-07] MEDS ORDERED: fentaNYL INJECTION 100 MCG/2 ML AMP ONE (11:04)
[2017-08-07] MEDS ORDERED: diphenhydrAMINE 50 MG/ML INJ (BENADRYL) ONE (11:04)
[2017-08-07] MEDS ORDERED: HEParin (CATH LAB) 2,000 ML IV ONE (11:04)
[2017-08-07] MEDS ORDERED: HEParin 1000 UNIT/ML (10ML VIAL) FOR BOLUS ONE (11:10)
[2017-08-07] MEDS ORDERED: VERAPAMIL 5 MG/2 ML (CALAN) VIAL IV ONE (11:10)
[2017-08-07] MEDS ORDERED: NITROGLYCERIN DRIP 25 MG/D5W 250 ML IV ONE (11:11)
[2017-08-07] MEDS ORDERED: NS IV 1000 ML 1,000 ML ONE (11:25)
--- NOTE | 2017-08-07 11:47 | Cardiology Stress Test Report ---
Stress Test Report Type of NM Stress Test: Test Type: LEXISCAN 0.4MG/5ML Date of Procedure/Referring: Date of Procedure: Aug 07, 2017 PCP Jeannette Estrada MD Admitting Physician Jeanette Cruz MD Indications: Recurrent chest pain, history of CAD/PCI Baseline Heart Rate: 49 Baseline Blood Pressure: Blood Pressure Systolic: 129 Blood Pressure Diastolic: 76 Baseline EKG: Baseline EKG: sinus bradycardia Summary: This is a 72-year-old patient who was brought to the stress level off informed consent was taken. Lexiscan stress test was performed according to the protocol. 0.4 mg of IV Lexiscan was given. Low-grade exercise was performed. Baseline EKG showed sinus bradycardia at 49 bpm and blood pressure 129/76 mmHg. Maximum heart rate 99 bpm and blood pressure of 175/88 mmHg. Patient was having mild chest pain which became worse with Lexiscan and exercise. No ST-T wave abnormalities, no arrhythmias noted. 10.67 mCi of Myoview was given for rest imaging and 32.0 mCi of Myoview was given for stress imaging. Transient ischemic dilatation score 0.98. Ejection fraction 57 percent with no wall motion abnormalities. There is a mild to moderate apical reversible defect noted. Conclusion: 1. Chest pain during stress test with evidence of mild to moderate apical ischemia. Coronary angiography is recommended. Jeannette ESTRADA MD Aug 07, 2017 11:47 am
[2017-08-07] MEDS ORDERED: ASPIRIN 325 MG (5 GR) TABLET ONE (12:46)
[2017-08-07] MEDS ORDERED: CLOPIDOGREL 300 MG (PLAVIX) TABLET PO ONE (12:46)
[2017-08-07] MEDS ORDERED: NS IV 1000 ML 1,000 ML IV SCH (12:59)
[2017-08-07] MEDS ORDERED: PATIENT MAY USE OWN MEDS, ALL PO SCH (13:00)
--- NOTE | 2017-08-07 13:11 | Coronary Angiography & PCI ---
Coronary Angiography & PCI DATE OF PROCEDURE: 08/07/17 INDICATION: recurrent chest pain, abnormal nuclear stress test, previous history of CAD and multiple stents. PREOPERATIVE DIAGNOSIS: recurrent chest pain, abnormal nuclear stress test, previous history of CAD and multiple stents. POSTOPERATIVE DIAGNOSIS: 1. Severe in-stent restenosis in the mid RCA, treated successfully with balloon angioplasty. HISTORY: this is a 72-year-old gentleman who is a patient of Dr. Cheney. He presented with recurrent prolonged episodes of chest pain. He was admitted to the hospital and acute coronary syndrome was ruled out with negative serial troponins and EKG. Nuclear stress test was performed today. Patient developed chest pain with no EKG changes however myocardial perfusion imaging showed mild to moderate apical ischemia. Therefore, the patient was scheduled for coronary angiography. PROCEDURES PERFORMED: 1.Coronary angiography. 2.Left heart catheterization. 3.PTCA to the mid RCA ISR. 4. IVUS of the mid RCA. 5. Mynx closure of the right femoral artery. COMPLICATIONS: None. SPECIMENS: None. ESTIMATED BLOOD LOSS: 10 mL ANESTHESIA: Conscious sedation ANTICOAGULATION: IV heparin CONTRAST: 138 mL. FLUOROSCOPY: 9.03 minutes. FLOUROSCOPY DOSE: 3035 mgy. PROCEDURE DETAILS: The patient is a 72 male and was brought to the environmental laboratory technician after informed consent was taken. All the risks and complications were explained in detail; this included the risk of bleeding, vascular damage, stroke , CO and even . The patient was draped and prepped in the usual sterile fashion. patient had an abnormal Fer's test therefore access was gained in the right femoral artery with a 6 [place] sheath. Coronary angiography was performed with a JR4 catheter and a JL4 catheter. Left heart catheterization and aortogram was performed with a pigtail catheter. FINDINGS: 1.Left main: patent. 2.LAD: mild proximal disease. Stenosis severity 20 percent. Transapical vessel. 3.Left circumflex artery: mild distal disease in the AV groove artery. Stenosis severity 20 percent. 4.RCA: moderate to severe in-stent restenosis in the mid RCA stent. Stenosis severity 70 percent. 5.Left heart catheterization: aortic pressure 141/64 mmHg, LV pressure 142/64 mmHg. LVEDP 20 mmHg. Normal LV function with no wall motion of the modalities. There is no gradient across the aortic valve. 6. Aortic arch aortogram: No aneurysm or dissection noted. RECOMMENDATIONS: 1. IVUS of the mid RCA stent is recommended. 2. PTCA to the mid RCA stent is recommended. INTERVENTION DETAILS: JR4 guide catheter, BMW guidewire, IV heparin for anticoagulation. ACT was performed once which was 229 seconds. Patient was given Plavix 600 mg and aspirin 325 mg by mouth. The lesion was crossed with a BMW wire. Intravascular ultrasound evaluation was performed which showed a mean luminal area of 2.68-2.7 mm with plaque burden of over 75 percent. The intravascular ultrasound was taken out and we took NC balloon 3.0X 15 mm and performed high pressure balloon angioplasty for 20 svetlana for 90 seconds with excellent results. Less than 10 percent residual stenosis with MARLEY-3 flow at the end of the procedure. Patient had MARLEY-3 flow at the beginning of the procedure as well. Patient tolerated procedure well did not have any complications. CONCLUSIONS: 1. severe mid RCA in-stent restenosis treated successfully with high pressure balloon angioplasty with an NC balloon. 2. Continue dual antiplatelet therapy. Follow-up with Dr. Cheney as an outpatient. Judi Estrada MD, FACP, FACC, PSYCHIATRIC Interventional Cardiology Jeannette ESTRADA MD Aug 07, 2017 1:11 pm
[2017-08-07] MEDS ORDERED: MONTELUKAST 10 MG (SINGULAIR) TAB PO SCH (21:00)
[2017-08-07] MEDS ORDERED: ATORVASTATIN 40 MG (LIPITOR) TABLET PO SCH (21:00)
[2017-08-08] VITALS: BP 139/76
[2017-08-08 04:30] LABS: BUN/CREATININE RATIO 13; CALCIUM 8.8 MG/DL (8.5-10.1); CARBON DIOXIDE 23 MMOL/L (21-32); CHLORIDE 98 MMOL/L (98-107); CREATININE SERUM 0.97 MG/DL (0.60-1.30); GFR ESTIMATED > 60; GLUCOSE 103 MG/DL (70-105); SODIUM 131 MMOL/L (135-145)
[2017-08-08 04:55] VITALS: BP 123/66
[2017-08-08] MEDS ORDERED: LEVOTHYROXINE 25 MCG (LEVOTHROID) TAB PO SCH (06:30)
[2017-08-08] MEDS ORDERED: glipiZIDE XL 2.5 MG (GLUCOTROL XL) TAB PO SCH (07:00)
[2017-08-08 08:24] VITALS: BP 108/66
[2017-08-08] MEDS: LOSARTAN 100 MG (COZAAR) TABLET PO SCH (08:25)
[2017-08-08] MEDS: PANTOPRAZOLE 40 MG (PROTONIX) TAB PO SCH ×2 (08:27→08:30)
[2017-08-08] MEDS: OMEGA 3 (FISH OIL) 1000 MG CAP PO SCH (08:27)
[2017-08-08] MEDS: CLOPIDOGREL 75 MG (PLAVIX) TABLET PO SCH (08:28)
[2017-08-08] MEDS: ASPIRIN E.C. 81 MG (ECOTRIN) TAB PO SCH (08:28)
[2017-08-08] MEDS: NS IV 1000 ML 1,000 ML IV SCH (08:28)
[2017-08-08] MEDS ORDERED: SUCR1TAB36 PO (08:49)
[2017-08-08] MEDS ORDERED: LOSA100T28 PO (08:49)
--- NOTE | 2017-08-08 08:50 | Discharge Inst-Complex ---
PDI Med Rec & Follow Up Appt. New Medications: Sucralfate (Carafate) 1 Gm Tablet 1 GM PO ACHS for 30 Days, #120 TAB Losartan Potassium (Losartan Potassium) 100 Mg Tablet 100 MG PO DAILY for 90 Days, #90 TAB 2 Refills Continued Medications: Albuterol Sulfate (Ventolin Hfa) 18 Gm Hfa.aer.ad 2 PUFF INH Q4H PRN for SHORTNESS OF BREATH, INHALER Aspirin (Aspirin) 81 Mg Tab.chew 81 MG PO DAILY, TAB Atorvastatin Calcium (Atorvastatin Calcium) 40 Mg Tablet 40 MG PO HS, TAB Budesonide/Formoterol Fumarate (Symbicort 160-4.5 Mcg Inhaler) 10.2 Gm Hfa.aer.ad 2 PUFF IH BID PRN for SHORTNESS OF BREATH, INHALER Clopidogrel Bisulfate (Clopidogrel) 75 Mg Tablet 75 MG PO DAILY, TAB Glipizide (Glipizide ER) 2.5 Mg Tab 2.5 MG PO DAILY, TAB Levothyroxine Sodium (Levothyroxine Sodium) 25 Mcg Tablet 25 MCG PO DAILY, TAB Montelukast Sodium (Montelukast Sodium) 10 Mg Tablet 10 MG PO HS, TAB Nitroglycerin (Nitroglycerin) 0.4 Mg Tab.subl 0.4 MG SL UD PRN for CHEST PAIN, TAB [place] 3 Polyunsat Fatty Acids (Fish Oil 1,000 mg Capsule) 1,000 Mg Cap 1000 MG PO DAILY, CAP Pantoprazole Sodium (Pantoprazole Sodium) 40 Mg Tablet.dr 40 MG PO DAILY, TAB Discontinued Medications: Losartan/Hydrochlorothiazide (Losartan-Hctz 100-12.5 mg Tab) 1 Each Tablet 1 TAB PO DAILY, TAB Prescription: Transmitted to Pharmacy (CARAFATE AND LOSARTAN TO [facility]) Activity, Diet and PDI Discharge Diet: ADA Diet Drink 6-8 Glasses of Fluid/Day: Yes Driving Instructions: No Driving for 24 Hours Return to The Hospital For: ANY CONCERN FOR RECURRENT CHEST PAIN OR LIFETHREATENING ILLNESS OR INJURY Symptoms to Reoprt to : Appetite Changes, Bleeding Excessive, Fever Over 101 Degrees F, Pain/Pressure in Chest, Cough Up/Vomit Blood, Shortness of Breath For Problems or Questions: Contact Your Physician, Go to Emergency Room Infection Signs and Symptoms: Temperature Above 101 F MORRIS FXO MD Aug 08, 2017 08:50
--- NOTE | 2017-08-08 10:00 | Discharge Inst-Post CATH ---
Discharge Inst-CATH Post Cardiac Cath D/C Inst Follow Up/Plan Follow up with Dr Cheney and Dr Cruz CARDIAC CATH DISCHARGE INSTRUCTIONS *Hold Metformin for 48 hours post heart cath. ACTIVITY * Go Home directly and rest. * Limit activity of the leg (or wrist if it was used) for 7 days including aerobics, swimming, jogging, bicycling, etc. * Restrict stair-climbing for 7 days if possible, if not, climb up with your non -cath leg, then bring together on the same step. * Avoid lifting, pushing, pulling or excessive movement of the affected extremity for 7 days. * Customary sexual activity may be resumed after 2 days-use caution not to use a position that strains or causes pain to the affected extremity. * No driving for 24 hours. * NO SMOKING. * Avoid straining for bowel movements for 7 days. * Gentle walking on level ground is allowed. * Returning to work will depend on the type of procedure and the results. Your doctor will discuss this with you. CALL YOUR DOCTOR FOR ANY OF THE FOLLOWING: *If bleeding from the puncture site occurs- Apply gentle pressure to site with clean cloth and call your doctor or EMS. * If a knot or lump forms under the skin, increases in size, or causes pain. * If bruising appears to be worsening or moving further down your leg instead of disappearing. * Temperature above 101 F. CARE OF YOUR GROIN INCISION; * Bruising or purple discoloration of the skin near the puncture site is common. * You may shower only, no bathtub bathing for 5 days. Be careful to avoid slipping as your leg may feel stiff. * If a closure device was used on your femoral artery, please see the attached guide regarding care of the device and your leg. * REMOVE the dressing from your groin the next day after your procedure in the shower. CARE OF YOUR WRIST INCISION; * Bruising or purple discoloration of the skin near the puncture site is common. * You may shower. * DO NOT submerge wrist. * Remove dressing in 24 hours. Jeannette MORRIS MD Aug 08, 2017 10:00
--- NOTE | 2017-08-08 10:02 | Cardiology Discharge Summary ---
Diagnosis/Chief Complaint Date of Admission Aug 06, 2017 at 11:25 Date of Discharge 08/08/2017 Admission Diagnosis Unstable angina Final/Discharge Diagnosis Unstable angina, status post PTCA to mid RCA in-stent restenosis Chief Complaint/HPI Chief Complaint/HPI this is a 72-year-old gentleman with history of COPD, previous history of smoking, diabetes, hypertension, hyperlipidemia, known history of significant coronary artery disease with multiple stents placed in the past. he is a patient of Dr. Cheney; however he is having recurrent worse chest discomfort therefore he was sent from Dr. Cheney's office to see me. He presents with recurrent worsening chest pain.chest pain is substernal and recurrent. It is associated with exertion. Rest makes it better. He denies any other significant associated factors. Mild improvement with nitroglycerin. No radiation. Intensity 09/01. Discharge Summary Procedures PTCA to severe in-stent restenosis in the mid RCA Discharge Physical Examination Stable cardiorespiratory examination. Hospital Course Patient was noted to have hyponatremia with a sodium of 125. Thiazide diuretics were discontinued. Pending Labs Laboratory Tests 08/08/17 08:47: Glucometer 124 Discussion & Recommendations Discussion Hyponatremia: Defer to Dr. Cruz. Patient may require nephrology evaluation as an outpatient. CAD: Patient will follow with Dr. Cheney as an outpatient. Discharge instructions discussed with patient and . Continue dual antiplatelet therapy. Follow up appt.: Dr. Cheney and Dr. Cruz in one to 2 weeks. Dicharge Diet: Cardiac Diet Activity as Tolerated: Yes Home Medications Reviewed patient Home Medication Reconciliation Form Discharge Home Medications: Reviewed and agree with Discharge Medication list on patient's Discharge Instruction sheet Condition at discharge Stable Instructions to patient/family Follow up with Dr Cheney and Dr Cruz Clinical Quality Measures DVT/VTE Risk/Contraindication: Risk Factor Score Per Nursin RFS Level Per Nursing on Admit: 2=Moderate Jeannette MORRIS MD Aug 08, 2017 10:02
[2017-08-08 10:35] VITALS: BP 108/66
--- OUTSIDE RECORDS SUMMARY | 2017-08-09 12:27 | XMS REPORT | Clinical Summary ---
Author Author [facility] Organization [facility] Address Unknown Phone Unavailable Care Team Providers Care Auto Claim Representative Name Role Phone Ben Espinoza MD [address] Rooney MD, [facility] Unavailable Jak Jiménez MD Unavailable Juan Alberto Javier MD Unavailable Norman Castañeda MD PCP Cade Arvizu MD Unavailable Isaias Trinidad MD Unavailable Source Comments Some departments are not documenting in the electronic medical record. If you do not see the information that you expected, contact Release of Information in the Health Information Management department at [phone] for further assistance in locating additional records.[facility] Allergies No Known Allergies Current Medications Prescription [...] Chest Pain. 16 Coronary artery disease involving kaw coronary artery, angina presence unspecified, unspecified whether kaw or transplanted heart losartan-hydrochlorothiaz Take 1 Tab [...] G. 11/06/12. CT scan chest with contrast, [facility]. Extensive apical scarring in both lungs. Emphysematous blebs and bulla present bilaterally. No evidence of CHF or pulmonary edema. No pneumonia or pleural effusion, quit smoking Coronary artery disease 01/03/2008 Overview: a. 05/08/07 - Exercise echo at [facility]: LVID 4.5. LA 2.6. EF 60%. Mild LVH. Patient exercised 10.5 minutes and complained of left pectoral discomfort. ECG demonstrated 1.[address] depression inferolateral leads. Echocardiogram showed apical septal and basal inferior hypokinesis. b. 05/10/07 - Cardiac cath at [facility], Dr. Rooney: LM ostial 20%. LAD prox 40%. Circ 30%, OM-2 40%. RCA mid 80%. PCI of RCA done using 2.5 x 20 mm Cypher stent (NANCY). c. 01/02/08 - Recurrent substernal discomfort at night. Cardiac cath a [facility] on 01/20/[address] Dietrich. LM prox [...] changes. f. On 01/12/2009, cardiac cath at [facility] showed LVEF 55%, no MR, LM normal, [...] a. Mother with diabetes and had possible CT, angioplasty and possible stent. b. Father had [...] Pt believes it was fountain drink " [employer] at [employer], drank daily gave the [...] changed to Lipitor. Throat discomfort Overview: a. 11/08/07 - Oral and pharyngeal Geovanni infection, treated with Nystatin. b. 12/16/08 - patient presented to [facility] complaining of severe sore throat discomfort and dysphagia. Placed on Diflucan. Advised to seek GI consult at [facility]. c. 01/01/09 - complete relief of the dysphagia symptoms on Diflucan course. Patient underwent EGD at [facility]. By then, his esophagus was free of Geovanni. d. In December 2008, EGD at [facility], by Dr. Bell, with no evidence of Geovanni and mild edema of the lower esophagus, placed on PPI for 1 month. SSS (sick sinus syndrome) ([facility]) Overview: a. 02/04/2009, heart rate 45 beats [...] Taken Blood Pressure 122/70 07/19/2015 2:51 PM TAPER/FINISHER Pulse 74 07/19/2015 2:47 PM TAPER/FINISHER Temperature 36.4 C (97.5 F) 12/03/2013 7:00 AM CDT Respiratory Rate 18 05/11/2007 9:34 AM TAPER/FINISHER Oxygen Saturation 97% 12/03/2013 7:00 AM CDT Inhaled Oxygen - - Concentration Weight 103.4 kg (228 lb) 07/19/2015 2:47 PM TAPER/FINISHER Height 180.3 cm (5' 10.98") 07/19/2015 2:47 PM TAPER/FINISHER Body Mass Index 31.81 07/19/2015 2:47 PM TAPER/FINISHER Plan of Treatment Health Maintenance Due Date Last Done Comments HEPATITIS C SCREENING 1945 PHYSICAL (COMPREHENSIVE) 1954 EXAM PERTUSSIS VACCINE 1958 TETANUS VACCINE 01/22/1964 COLORECTAL CANCER 1997 SCREENING SHINGLES VACCINE 2007 ABDOMINAL AORTIC ANEURYSM 01/22/2012 SCREENING PREVNAR/PNEUMOVAX (#1) 01/22/2012 INFLUENZA VACCINE 01/23/2017 Results Not on filefrom Last 3 Months
--- OUTSIDE RECORDS SUMMARY | 2017-08-09 12:28 | XMS REPORT | Continuity of Care Document ---
Author Author [facility] Organization [facility] Address Unknown Phone Unavailable Allergies Active Description Code Type Severity Reaction Onset Reported/Identified Relationship to Patient Clinical Status Yes No Known Drug Allergies [id number] Drug Allergy Unknown N/A 10/29/2014 Medications There is no data. Problems Date Dx Coded Attending Type Code Diagnosis Diagnosed By 04/05/2014 DESMOND MURO, PILO Lagunas Ot V45.82 PERCUTANEOUS TRANSLUM CORON ANGIOPLASTY 04/05/2014 DESMOND MURO, PILO Lagunas Ot V57.89 REHABILITATION PROC NEC 04/05/2014 DESMOND MURO, PILO Lagunas Ot V58.73 AFTERCARE POST SURGERY CIRULATORY SYSTEM 07/24/2014 CHERIE MURO, MARTHAMED T Ot 298.9 07/24/2014 CHERIE MURO, AHMED T Ot 433.10 07/24/2014 CHERIE MURO, MARTHAMED T Ot 433.30 07/24/2014 CHERIE MURO, AHMED T Ot 780.4 07/24/2014 CHERIE MURO, AHMED T Ot 784.0 10/02/2014 DESMOND MURO, PILO R Ot 414.00 10/02/2014 DESMOND MURO, PILO R Ot 427.81 10/02/2014 DESMOND MURO, PILO R Ot 794.30 10/02/2014 CHERIE MURO, AHMED T Ot 298.9 10/02/2014 CHERIE MURO, MARTHAMED T Ot 780.4 10/02/2014 CHERIE MURO, MARTHAMED T Ot 784.0 10/02/2014 Ot V45.82 10/02/2014 Ot V57.89 10/02/2014 Ot V58.73 10/20/2014 LORE OLSON DO Ot 571.8 10/20/2014 LORE OLSON DO Ot 789.01 10/29/2014 Ot V45.82 10/29/2014 Ot V57.89 10/29/2014 Ot V58.73 11/02/2014 OLSON DO, LORE D Ot 789.01 11/19/2014 OLSON DO, LORE D Ot 553.1 UMBILICAL HERNIA 11/19/2014 OLSON DO, LORE D Ot 706.2 SEBACEOUS CYST 12/07/2014 OLSON DO, LORE D Ot 789.01 12/17/2014 OLSON DO, LORE D Ot 553.1 12/17/2014 OLSON DO, LORE D Ot 706.2 12/17/2014 OLSON DO, LORE D Ot V72.63 12/17/2014 OLSON DO, LORE D Ot V72.81 12/17/2014 OLSON DO, LORE D Ot V74.8 01/03/2015 RUDDY MURO, MORRIS Chavez Ot 272.0 PURE HYPERCHOLESTEROLEM 01/03/2015 RUDDY MURO, MORRIS Chavez Ot 311 DEPRESSIVE DISORDER NEC 01/03/2015 MORRIS FOX MD Ot 401.9 HYPERTENSION NOS 01/03/2015 RUDDY MURO, MORRIS Chavez Ot 414.01 CORONARY ATHEROSCLEROSIS OF [place] CORON 01/03/2015 RUDDY MURO, MORRIS Chavez Ot 496 CHR AIRWAY OBSTRUCT NEC 01/03/2015 MORRIS FOX MD Ot 530.81 ESOPHAGEAL REFLUX 01/03/2015 MORRIS FOX MD Ot 682.7 CELLULITIS OF FOOT 01/03/2015 RUDDY MURO, MORRIS Chavez Ot V12.54 PERSONAL HX OF TIA, CEREBRAL INFARCTION 01/03/2015 MORRIS FOX MD Ot V15.82 HISTORY OF TOBACCO USE 01/03/2015 RUDDY MURO, MORRIS Chavez Ot V45.82 PERCUTANEOUS TRANSLUM CORON ANGIOPLASTY 03/04/2015 DESMOND MURO, PILO R Ot 414.00 03/04/2015 DESMOND MURO, PILO R Ot 427.81 03/04/2015 DESMOND MURO, PILO R Ot 794.30 03/04/2015 CHERIE MURO, JD T Ot 298.9 03/04/2015 CHERIE MURO, AHMED T Ot 780.4 03/04/2015 CHERIE MURO, JD T Ot 784.0 03/04/2015 Ot V45.82 03/04/2015 Ot V57.89 03/04/2015 Ot V58.73 03/04/2015 OLSON DO, LORE D Ot 571.8 03/04/2015 OLSON DO, LORE D Ot 789.01 03/04/2015 OLSON DO, LORE D Ot 789.01 03/04/2015 OLSON DO, LORE D Ot 553.1 03/04/2015 OLSON DO, LORE D Ot 706.2 03/04/2015 OLSON DO, LORE D Ot V72.63 03/04/2015 OLSON DO, LORE D Ot V72.81 03/04/2015 OLSON DO, LORE D Ot V74.8 03/04/2015 ALIS DO CONCETTA Jeannette Ot 496 03/04/2015 ALIS ARREDONDO CONCETTA M Ot 786.09 03/22/2015 ALIS ARREDONDO CONCETTA M Ot 496 03/22/2015 ALIS ARREDONDO CONCETTA Jeannette Ot 786.09 04/26/2015 ALIS ARREDONDO CONCETTA Jeannette Ot G47.36 SLEEP RELATED HYPOVENTILATION IN CONDITI 04/26/2015 CONCETTA SNELL DO Ot R06.83 SNORING 07/26/2015 DESMOND MURO, SHRIPAD R Ot 414.00 07/26/2015 DESMOND MURO, SHRIPAD R Ot 427.81 07/26/2015 DESMOND MURO, SHRIPAD R Ot 794.30 07/26/2015 CHERIE MURO, AHMED T Ot 298.9 07/26/2015 CHERIE MURO, AHMED T Ot 780.4 07/26/2015 CHERIE MURO, MARTHAMED T Ot 784.0 07/26/2015 Ot V45.82 07/26/2015 Ot V57.89 07/26/2015 Ot V58.73 07/26/2015 M[place] DO, LORE D Ot 571.8 07/26/2015 OLSON DO, LORE D Ot 789.01 07/26/2015 OLSON DO, LORE D Ot 789.01 07/26/2015 OLSON DO, LORE D Ot 553.1 07/26/2015 OLSON DO, LORE D Ot 706.2 07/26/2015 OLSON DO, LORE D Ot V72.63 07/26/2015 OLSON DO, LORE D Ot V72.81 07/26/2015 LORE OLSON DO Ot V74.8 07/26/2015 ALIS CONCETTA ARREDONDO Ot 496 07/26/2015 ALISCONCETTA VAIL DO Ot 786.09 07/26/2015 ROSALINE MURO, CODY Melba Ot D75.1 07/26/2015 ROSALINE MURO, CODY Melba Ot I10 07/26/2015 ROSALINE MURO, CODY Reilly Ot J44.9 07/26/2015 ROSALINE MURO, CODY Reilly Ot Z79.899 07/26/2015 DESMOND MURO, SHRIPAD R Ot 414.00 07/26/2015 DESMOND MURO, SHRIPAD R Ot 427.81 07/26/2015 DESMOND MURO, SHRIPAD R Ot 794.30 07/26/2015 CHERIE MURO, AHMED T Ot 298.9 07/26/2015 CHERIE MURO, AHMED T Ot 433.10 07/26/2015 CHERIE MURO, AHMED T Ot 433.30 07/26/2015 CHERIE MURO, AHMED T Ot 780.4 07/26/2015 CHERIE MURO, AHMED T Ot 784.0 07/26/2015 CHERIE MURO, AHMED T Ot 298.9 07/26/2015 CHERIE MURO, AHMED T Ot 780.4 07/26/2015 CHERIE MURO, AHMED T Ot 784.0 07/26/2015 Ot V45.82 07/26/2015 Ot V57.89 07/26/2015 Ot V58.73 07/26/2015 ROSALINE MURO, CODY Reilly Ot D75.1 07/26/2015 ROSALINE MURO, CODY Melba Ot I10 07/26/2015 ROSALINE MURO, CODY Reilly Ot J44.9 07/26/2015 ROSALINE MURO, CODY Reilly Ot Z79.899 08/02/2015 RUDDY MURO, MORRIS Chavez Ot E11.9 08/12/2015 VICENTE MURO FACC, ALI FACP CCDS Ot I25.10 08/12/2015 VICENTE MURO FACC, ALI FACP CCDS Ot J43.8 08/12/2015 VICENTE MURO FACC, ALI FACP CCDS Ot R07.89 08/23/2015 VICENTE MURO FACC, ALI FACP CCDS Ot I25.10 08/23/2015 VICENTE MURO FACC, ALI FACP CCDS Ot J43.8 08/23/2015 VICENTE MURO [facility] CCDS Ot R07.89 08/25/2015 ROSALINE MURO, CODY Melba Ot D75.1 08/25/2015 ROSALINE MURO, CODY Melba Ot I10 08/25/2015 ROSALINE MURO, CODY Reilly Ot J44.9 08/25/2015 ROSALINE MURO, CODY Reilly Ot Z79.899 09/08/2015 ROSALINE MURO, CODY Melba Ot D75.1 09/08/2015 ROSALINE MURO, CODY Melba Ot I10 09/08/2015 ROSALINE MURO, CODY Reilly Ot J44.9 09/08/2015 ROSALINE MURO, CODY Reilly Ot Z79.899 09/16/2015 RUDDY MURO, MORRIS A Ot E11.9 09/16/2015 DESMOND MURO, PILO R Ot 414.00 09/16/2015 DESMOND MURO, PILO R Ot 427.81 09/16/2015 DESMOND MURO, CLARAIPAD R Ot 794.30 09/16/2015 CHERIE MURO, JD T Ot 298.9 09/16/2015 CHERIE MURO, JD T Ot 780.4 09/16/2015 CHERIE MURO, JD T Ot 784.0 09/16/2015 Ot V45.82 09/16/2015 Ot V57.89 09/16/2015 Ot V58.73 09/16/2015 OLSONLORE MCKINNON DO Ot 571.8 09/16/2015 OLSON LOER ARREDONDO Ot 789.01 09/16/2015 OLSONLORE MCKINNON DO Ot 789.01 09/16/2015 OLSONLORE MCKINNON DO Ot 553.1 09/16/2015 OLSON LORE ARREDONDO Ot 706.2 09/16/2015 OLSON LORE ARREDONDO Ot V72.63 09/16/2015 OLSON LORE ARREDONDO Ot V72.81 09/16/2015 OLSON LORE ARREDONDO Ot V74.8 09/16/2015 CONCETTA SNELL DO Ot 496 09/16/2015 CONCETTA SNELL DO Ot 786.09 09/16/2015 RACHELLE DEVLIN APRN Ot R06.00 09/16/2015 ROSALINE MURO, CODY Reilly Ot D75.1 09/16/2015 CODY WAGGONER MD Ot I10 09/16/2015 CODY WAGGONER MD Ot J44.9 09/16/2015 CODY WAGGONER MD Ot Z79.899 09/16/2015 MORRIS FOX MD Ot E11.9 09/16/2015 VICENTE MURO FAC, ALI FACP CCDS Ot I25.10 09/16/2015 VICENTE MURO FAC, ALI FACP CCDS Ot J43.8 09/16/2015 VICENTE MURO FAC, ALI FACP CCDS Ot R07.89 09/16/2015 RACHELLE DEVLIN HEEL PRICKER Ot R06.00 09/28/2015 MORRIS FOX MD Ot E11.9 09/28/2015 Ot J44.9 10/13/2015 CODY WAGGONER MD Ot D75.1 SECONDARY POLYCYTHEMIA 10/13/2015 CODY WAGGONER MD Ot I10 ESSENTIAL (PRIMARY) HYPERTENSION 10/13/2015 CODY WAGGONER MD Ot J44.9 CHRONIC OBSTRUCTIVE PULMONARY DISEASE, U 10/13/2015 CODY WAGGONER MD Ot Z79.899 OTHER ASSOCIATE TECHNICIAN (CURRENT) DRUG THERAPY 10/14/2015 CODY WAGGONER MD Ot D75.1 SECONDARY POLYCYTHEMIA 10/14/2015 CODY WAGGONER MD Ot I10 ESSENTIAL (PRIMARY) HYPERTENSION 10/14/2015 CODY WAGGONER MD Ot J44.9 CHRONIC OBSTRUCTIVE PULMONARY DISEASE, U 10/14/2015 CODY WAGGONER MD Ot Z79.899 OTHER ASSOCIATE TECHNICIAN (CURRENT) DRUG THERAPY 10/24/2015 RACHELLE DEVLIN HEEL PRICKER Ot R06.00 DYSPNEA, UNSPECIFIED 10/28/2015 MORRIS FOX MD Ot E11.9 TYPE 2 DIABETES MELLITUS WITHOUT COMPLIC 10/31/2015 RACHELLE DEVLIN HEEL PRICKER Ot R06.00 DYSPNEA, UNSPECIFIED 11/25/2015 CODY WAGGONER MD Ot D75.1 SECONDARY POLYCYTHEMIA 11/25/2015 CODY WAGGONER MD Ot I10 ESSENTIAL (PRIMARY) HYPERTENSION 11/25/2015 CODY WAGGONER MD Ot J44.9 CHRONIC OBSTRUCTIVE PULMONARY DISEASE, U 11/25/2015 CODY WAGGONER MD Ot Z79.899 OTHER ASSOCIATE TECHNICIAN (CURRENT) DRUG THERAPY 12/02/2015 MORRIS FOX MD Ot E03.9 HYPOTHYROIDISM, UNSPECIFIED 12/02/2015 ELVIRA FOX MDY A Ot E11.65 TYPE 2 DIABETES MELLITUS WITH HYPERGLYCE 12/02/2015 MORRIS FOX MD Ot I10 ESSENTIAL (PRIMARY) HYPERTENSION 12/06/2015 CODY WAGGONER MD Ot D75.1 SECONDARY POLYCYTHEMIA 12/06/2015 CODY WAGGONER MD Ot I10 ESSENTIAL (PRIMARY) HYPERTENSION 12/06/2015 CODY WAGGONER MD Ot J44.9 CHRONIC OBSTRUCTIVE PULMONARY DISEASE, U 12/06/2015 CODY WAGGONER MD Ot Z79.899 OTHER ASSOCIATE TECHNICIAN (CURRENT) DRUG THERAPY 02/29/2016 CODY WAGGONER MD Ot D75.1 SECONDARY POLYCYTHEMIA 02/29/2016 CODY WAGGONER MD Ot I10 ESSENTIAL (PRIMARY) HYPERTENSION 02/29/2016 CODY WAGGONER MD Ot J44.9 CHRONIC OBSTRUCTIVE PULMONARY DISEASE, U 02/29/2016 CODY WAGGONER MD Ot Z79.899 OTHER HALF-WAY (CURRENT) DRUG THERAPY 09/19/2016 PILO LOGAN MD R Ot 414.00 CORON ATHEROSCLER NOS TYPE VESSEL, NATIV 09/19/2016 PILO OLGAN MD R Ot 427.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 09/19/2016 PILO LOGAN MD R Ot 794.30 ABN CARDIOVASC STUDY NOS 09/19/2016 CHERIE MURO, JD Morales Ot 298.9 PSYCHOSIS NOS 09/19/2016 CHERIE MURO, JD Morales Ot 780.4 DIZZINESS AND GIDDINESS 09/19/2016 CHERIE MURO, JD Morales Ot 784.0 HEADACHE 09/19/2016 Ot V45.82 PERCUTANEOUS TRANSLUM CORON ANGIOPLASTY 09/19/2016 Ot V57.89 REHABILITATION PROC NEC 09/19/2016 Ot V58.73 AFTERCARE POST SURGERY CIRULATORY SYSTEM 09/19/2016 LORE OLSON DO Ot 571.8 CHRONIC LIVER DIS NEC 09/19/2016 LORE OLSON DO Ot 789.01 ABDOMINAL PAIN, RIGHT UPPER QUADRANT 09/19/2016 LORE OLSON DO Ot 789.01 ABDOMINAL PAIN, RIGHT UPPER QUADRANT 09/19/2016 LORE OLSON DO Ot 553.1 UMBILICAL HERNIA 09/19/2016 LORE OLSON DO Ot 706.2 SEBACEOUS CYST 09/19/2016 LORE OLSON DO Ot V72.63 PRE-PROCEDURAL LABORATORY EXAMINATION 09/19/2016 LORE OLSON DO Ot V72.81 [id number] CARDIOVASCULAR 09/19/2016 LORE OLSON DO Ot V74.8 SCREEN-BACTERIAL DIS NEC 09/19/2016 CONCETTA SNELL DO Ot 496 CHR AIRWAY OBSTRUCT NEC 09/19/2016 CONCETTA SNELL DO Ot 786.09 RESPIRATORY ABNORM NEC 09/19/2016 Ot J44.9 CHRONIC OBSTRUCTIVE PULMONARY DISEASE, U 09/19/2016 VICENTE MURO FAC, ALI FACP CCDS Ot I25.10 ATHSCL HEART DISEASE OF [place] CORONARY 09/19/2016 VICENTE MURO FAC, ALI FACP CCDS Ot J43.8 OTHER EMPHYSEMA 09/19/2016 VICENTE UMRO FAC, ALI FACP CCDS Ot R07.89 OTHER CHEST PAIN 09/19/2016 RACHELLE DEVLIN APRN Ot R06.00 DYSPNEA, UNSPECIFIED 09/19/2016 RUDDY MURO, MORRIS Chavez Ot E11.9 TYPE 2 DIABETES MELLITUS WITHOUT COMPLIC 09/19/2016 RUDDY MURO, MORRIS Chavez Ot E03.9 HYPOTHYROIDISM, UNSPECIFIED 09/19/2016 RUDDY MURO, MORRIS Chavez Ot E11.65 TYPE 2 DIABETES MELLITUS WITH HYPERGLYCE 09/19/2016 RUDDY MURO, MORRIS Chavez Ot I10 ESSENTIAL (PRIMARY) HYPERTENSION 09/19/2016 Ot D75.1 SECONDARY POLYCYTHEMIA 09/19/2016 Ot I10 ESSENTIAL ( PRIMARY) HYPERTENSION 09/19/2016 Ot J44.9 CHRONIC OBSTRUCTIVE PULMONARY DISEASE, U 09/19/2016 Ot Z79.899 OTHER HALF-WAY (CURRENT) DRUG THERAPY 10/02/2016 DESMOND MURO, PILO Lagunas Ot 414.00 CORON ATHEROSCLER NOS TYPE VESSEL, NATIV 10/02/2016 DESMOND MURO, PILO R Ot 427.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 10/02/2016 DESMOND MURO, PILO Lagunas Ot 794.30 ABN CARDIOVASC STUDY NOS 10/02/2016 CHERIE MURO, JD Morales Ot 298.9 PSYCHOSIS NOS 10/02/2016 JD CRESPO MD Ot 433.10 CAROTID ARTERY OCCLUSION W O CEREBRAL IN 10/02/2016 JD CRESPO MD Ot 433.30 MULT BILTRAL ARTERY OCCLUSION WO CEREBRA 10/02/2016 CHERIE MURO, JD Morales Ot 780.4 DIZZINESS AND GIDDINESS 10/02/2016 CHERIE MURO, JD Morales Ot 784.0 HEADACHE 10/02/2016 CHERIE MURO, JD Morales Ot 298.9 PSYCHOSIS NOS 10/02/2016 CHERIE MURO, JD Morales Ot 780.4 DIZZINESS AND GIDDINESS 10/02/2016 JD CRESPO MD Ot 784.0 HEADACHE 10/02/2016 Ot V45.82 PERCUTANEOUS TRANSLUM CORON ANGIOPLASTY 10/02/2016 Ot V57.89 REHABILITATION PROC NEC 10/02/2016 Ot V58.73 AFTERCARE POST SURGERY CIRULATORY SYSTEM 10/02/2016 SEYMOUR LOOMIS HEEL PRICKER Ot J48.0 10/02/2016 DESMOND MURO, PILO R Ot 414.00 CORON ATHEROSCLER NOS TYPE VESSEL, NATIV 10/02/2016 DESMOND MURO, PILO R Ot 427.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 10/02/2016 PILO LOGAN MD R Ot 794.30 ABN CARDIOVASC STUDY NOS 10/02/2016 JD CRESPO MD Ot 298.9 PSYCHOSIS NOS 10/02/2016 CHERIE MURO, JD Morales Ot 780.4 DIZZINESS AND GIDDINESS 10/02/2016 JD CRESPO MD Ot 784.0 HEADACHE 10/02/2016 Ot V45.82 PERCUTANEOUS TRANSLUM CORON ANGIOPLASTY 10/02/2016 Ot V57.89 REHABILITATION PROC NEC 10/02/2016 Ot V58.73 AFTERCARE POST SURGERY CIRULATORY SYSTEM 10/02/2016 LORE OLSON DO Ot 571.8 CHRONIC LIVER DIS NEC 10/02/2016 LORE OLSON DO Ot 789.01 ABDOMINAL PAIN, RIGHT UPPER QUADRANT 10/02/2016 LORE OLSON DO Ot 789.01 ABDOMINAL PAIN, RIGHT UPPER QUADRANT 10/02/2016 LORE OLSON DO Ot 553.1 UMBILICAL HERNIA 10/02/2016 LORE OLSON DO Ot 706.2 SEBACEOUS CYST 10/02/2016 LORE OLSON DO Ot V72.63 PRE-PROCEDURAL LABORATORY EXAMINATION 10/02/2016 LORE OLSON DO Ot V72.81 [id number] CARDIOVASCULAR 10/02/2016 LORE OLSON DO Ot V74.8 SCREEN-BACTERIAL DIS NEC 10/02/2016 CONCETTA SNELL DO Ot 496 CHR AIRWAY OBSTRUCT NEC 10/02/2016 CONCETTA SNELL DO Ot 786.09 RESPIRATORY ABNORM NEC 10/02/2016 Ot J44.9 CHRONIC OBSTRUCTIVE PULMONARY DISEASE, U 10/02/2016 VICENTE MURO FACC, ALI FACP CCDS Ot I25.10 ATHSCL HEART DISEASE OF [place] CORONARY 10/02/2016 VICENTE MURO FACC, ALI FACP CCDS Ot J43.8 OTHER EMPHYSEMA 10/02/2016 VICENTE MURO FACC, ALI FACP CCDS Ot R07.89 OTHER CHEST PAIN 10/02/2016 SEYMOUR LOOMIS APRN Ot J48.0 10/02/2016 RACHELLE DEVLIN HEEL PRICKER Ot R06.00 DYSPNEA, UNSPECIFIED 10/02/2016 RUDDY MURO, MORRIS Chavez Ot E11.9 TYPE 2 DIABETES MELLITUS WITHOUT COMPLIC 10/02/2016 MORRIS FOX MD Ot E03.9 HYPOTHYROIDISM, UNSPECIFIED 10/02/2016 RUDDY MURO, MORRIS Chavez Ot E11.65 TYPE 2 DIABETES MELLITUS WITH HYPERGLYCE 10/02/2016 RUDYD MURO, MORRIS Chavez Ot I10 ESSENTIAL (PRIMARY) HYPERTENSION 10/02/2016 Ot D75.1 SECONDARY POLYCYTHEMIA 10/02/2016 Ot I10 ESSENTIAL ( PRIMARY) HYPERTENSION 10/02/2016 Ot J44.9 CHRONIC OBSTRUCTIVE PULMONARY DISEASE, U 10/02/2016 Ot Z79.899 OTHER HALF-WAY (CURRENT) DRUG THERAPY 10/02/2016 BERNADETTE PEREYRA SEPTIC TANK INSTALLER Ot I10 ESSENTIAL (PRIMARY) HYPERTENSION 10/02/2016 BERNADETTE PEREYRA L SEPTIC TANK INSTALLER Ot I25.10 ATHSCL HEART DISEASE OF [place] CORONARY 10/02/2016 BERNADETTE PEREYRA L SEPTIC TANK INSTALLER Ot I65.23 OCCLUSION AND STENOSIS OF [place]AL [place] 10/02/2016 BERNADETTE PEREYRA L SEPTIC TANK INSTALLER Ot R06.02 SHORTNESS OF BREATH 10/02/2016 BERNADETTE PEREYRA L SEPTIC TANK INSTALLER Ot R07.89 OTHER CHEST PAIN 10/02/2016 SEYMOUR LOOMIS APRN Ot J48.0 10/02/2016 SEYMOUR LOOMIS APRN Ot J48.0 10/02/2016 SEYMOUR LOOMIS APRN Ot J48.0 10/03/2016 LORE OLSON DO Ot I70.91 GENERALIZED ATHEROSCLEROSIS 10/03/2016 LORE OLSON DO Ot K42.9 UMBILICAL HERNIA WITHOUT OBSTRUCTION OR 10/03/2016 LORE OLSON DO Ot K57.30 DVRTCLOS OF LG INT W/O PERFORATION OR AB 10/03/2016 LORE OLSON DO Ot K76.0 FATTY (CHANGE OF) LIVER, NOT ELSEWHERE C 10/03/2016 Jeannette MORRIS MD Ot E11.9 TYPE 2 DIABETES MELLITUS WITHOUT COMPLIC 10/03/2016 Jeannette MORRIS MD Ot E78.5 HYPERLIPIDEMIA, UNSPECIFIED 10/03/2016 Jeannette MORRIS MD, Ot I10 ESSENTIAL (PRIMARY) HYPERTENSION 10/03/2016 Jeannette MORRIS MD Ot I25.110 ATHSCL HEART DISEASE OF [place] COR ART W 10/03/2016 Jeannette MORRIS MD, Ot J44.9 CHRONIC OBSTRUCTIVE PULMONARY DISEASE, U 10/03/2016 Jeannette MORRIS MD Ot T82.855A STENOSIS OF CORONARY ARTERY STENT, INITI 10/03/2016 Jeannette MORRIS MD Ot Z79.899 OTHER HALF-WAY (CURRENT) DRUG THERAPY 10/03/2016 Jeannette MORRIS MD Ot Z87.891 PERSONAL HISTORY OF NICOTINE DEPENDENCE 10/03/2016 Jeannette MORRIS MD Ot Z95.5 PRESENCE OF CORONARY ANGIOPLASTY IMPLANT 10/06/2016 Jeannette MORRIS MD Ot E11.9 TYPE 2 DIABETES MELLITUS WITHOUT COMPLIC 10/06/2016 Jeannette MORRIS MD Ot E78.5 HYPERLIPIDEMIA, UNSPECIFIED 10/06/2016 Jeannette MORRIS MD Ot I10 ESSENTIAL (PRIMARY) HYPERTENSION 10/06/2016 Jeannette MORRIS MD Ot I25.110 ATHSCL HEART DISEASE OF [place] COR ART W 10/06/2016 Jeannette MORRIS MD, Ot J44.9 CHRONIC OBSTRUCTIVE PULMONARY DISEASE, U 10/06/2016 Jeannette MORRIS MD, Ot T82.855A STENOSIS OF CORONARY ARTERY STENT, INITI 10/06/2016 ALEXANDRA MURO, Jeannette MORALES Ot Z87.891 PERSONAL HISTORY OF NICOTINE DEPENDENCE 10/06/2016 ALEXANDRA MURO, Jeanntete MORALES Ot Z95.5 PRESENCE OF CORONARY ANGIOPLASTY IMPLANT 10/08/2016 VLADISLAVSEYMOUR SHEPARD EDA Ot J43.9 EMPHYSEMA, UNSPECIFIED 11/13/2016 OLSON DO, LORE D Ot I70.91 GENERALIZED ATHEROSCLEROSIS 11/13/2016 OLSON DO, LORE D Ot K42.9 UMBILICAL HERNIA WITHOUT OBSTRUCTION OR 11/13/2016 OLSON DO, LORE D Ot K57.30 DVRTCLOS OF LG INT W/O PERFORATION OR AB 11/13/2016 OLSON DO, LORE D Ot K76.0 FATTY (CHANGE OF) LIVER, NOT ELSEWHERE C 11/13/2016 OLSON DO LORE D Ot I70.91 GENERALIZED ATHEROSCLEROSIS 11/13/2016 OLSON DO, LORE D Ot K42.9 UMBILICAL HERNIA WITHOUT OBSTRUCTION OR 11/13/2016 OLSON DO, LORE D Ot K57.30 DVRTCLOS OF LG INT W/O PERFORATION OR AB 11/13/2016 OLSON DO, LORE D Ot K76.0 FATTY (CHANGE OF) LIVER, NOT ELSEWHERE C 11/13/2016 OLSON DO LORE D Ot I70.91 GENERALIZED ATHEROSCLEROSIS 11/13/2016 OLSON DO, LORE D Ot K42.9 UMBILICAL HERNIA WITHOUT OBSTRUCTION OR 11/13/2016 OLSON DO, LORE D Ot K57.30 DVRTCLOS OF LG INT W/O PERFORATION OR AB 11/13/2016 OLSON DO LORE D Ot K76.0 FATTY (CHANGE OF) LIVER, NOT ELSEWHERE C 11/15/2016 BERNADETTE PEREYRA L SEPTIC TANK INSTALLER Ot I10 ESSENTIAL (PRIMARY) HYPERTENSION 11/15/2016 BERNADETTE PEREYRA L SEPTIC TANK INSTALLER Ot I25.10 ATHSCL HEART DISEASE OF [place] CORONARY 11/15/2016 BERNADETTE PEREYRA SEPTIC TANK INSTALLER Ot I65.23 OCCLUSION AND STENOSIS OF [place]ILATERAL [place] 11/15/2016 BERNADETTE PEREYRA L SEPTIC TANK INSTALLER Ot R06.02 SHORTNESS OF BREATH 11/15/2016 BERNADETTE PEREYRA SEPTIC TANK INSTALLER Ot R07.89 OTHER CHEST PAIN 11/15/2016 BERNADETTE PEREYRA L SEPTIC TANK INSTALLER Ot I10 ESSENTIAL (PRIMARY) HYPERTENSION 11/15/2016 BERNADETTE PEREYRA SEPTIC TANK INSTALLER Ot I25.10 ATHSCL HEART DISEASE OF [place] CORONARY 11/15/2016 BERNADETTE PEREYRA SEPTIC TANK INSTALLER Ot I65.23 OCCLUSION AND STENOSIS OF [place]ILATERAL [place] 11/15/2016 BERNADETTE PEREYRA SEPTIC TANK INSTALLER Ot R06.02 SHORTNESS OF BREATH 11/15/2016 BERNADETTE PEREYRA SEPTIC TANK INSTALLER Ot R07.89 OTHER CHEST PAIN 11/30/2016 SEYMOUR LOOMIS HEEL PRICKER Ot J43.9 EMPHYSEMA, UNSPECIFIED 01/01/2017 SEYMOUR LOOMIS HEEL PRICKER Ot J43.9 EMPHYSEMA, UNSPECIFIED 01/03/2017 SEYMOUR LOOMIS HEEL PRICKER Ot J43.9 EMPHYSEMA, UNSPECIFIED 04/19/2017 VICENTE MURO FACC, DELORES FACP CCDS Ot 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 04/19/2017 VICENTE MURO FACC, DELORES FACP CCDS Ot E29.1 TESTICULAR HYPOFUNCTION 04/19/2017 VICENTE MURO FACC, ALI FACP CCDS Ot E66.9 OBESITY, UNSPECIFIED 04/19/2017 VICENTE MURO FACC, ALI FACP CCDS Ot I10 ESSENTIAL (PRIMARY) HYPERTENSION 04/19/2017 VICENTE MURO FACC, DELORES FACP CCDS Ot I25.110 ATHSCL HEART DISEASE OF [place] ART W 04/19/2017 VICENTE MURO FACC, ALI FACP CCDS Ot I65.23 OCCLUSION AND STENOSIS OF BILATERAL [place] 04/19/2017 VICENTE MURO FACC, ALI FACP CCDS Ot J43.9 EMPHYSEMA, UNSPECIFIED 04/19/2017 VICENTE MURO FACC, ALI FACP CCDS Ot K21.9 GASTRO-ESOPHAGEAL REFLUX DISEASE WITHOUT 04/19/2017 VICENTE MURO FACC, ALI FACP CCDS Ot N52.9 MALE ERECTILE DYSFUNCTION, UNSPECIFIED 04/19/2017 DELORES ZHANG MD, FACC FACP CCDS Ot R73.03 PREDIABETES 04/19/2017 VICENTE MURO FACC, ALI FACP CCDS Ot R74.8 ABNORMAL LEVELS OF OTHER SERUM ENZYMES 04/19/2017 VICENTE MURO FACC, DELORES FACP CCDS Ot T82.855A STENOSIS OF CORONARY ARTERY STENT, INITI 04/19/2017 VICENTE MURO FACC ALI FACP CCDS Ot Z23 ENCOUNTER FOR IMMUNIZATION 04/19/2017 DELORES ZHANG MD, FACC FACP CCDS Ot Z68.30 BODY MASS INDEX (BMI) 30.0-30.9, ADULT 04/19/2017 VICENTE MURO FACC, ALI FACP CCDS Ot Z87.891 PERSONAL HISTORY OF NICOTINE DEPENDENCE 04/19/2017 VICENTE MURO FACC, DELORES FACP CCDS Ot Z95.5 PRESENCE OF CORONARY ANGIOPLASTY IMPLANT 05/02/2017 RACHELLE DEVLIN APRN Ot M79.661 PAIN IN RIGHT LOWER LEG 05/02/2017 RACHELLE DEVLIN HEEL PRICKER Ot R22.41 LOCALIZED SWELLING, MASS AND LUMP, RIGHT 05/09/2017 VICENTE MURO FACC, DELORES FACP CCDS Ot 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 05/09/2017 VICENTE MURO FACC, DELORES FACP CCDS Ot E29.1 TESTICULAR HYPOFUNCTION 05/09/2017 VICENTE MURO FACC, ALI FACP CCDS Ot E66.9 OBESITY, UNSPECIFIED 05/09/2017 VICENTE MURO FACC, DELORES FACP CCDS Ot I10 ESSENTIAL (PRIMARY) HYPERTENSION 05/09/2017 VICENTE MURO FACC, DELORES FACP CCDS Ot I25.110 ATHSCL HEART DISEASE OF [place] ART W 05/09/2017 VICENTE MURO FACC, DELORES FACP CCDS Ot I65.23 OCCLUSION AND STENOSIS OF BILATERAL [place] 05/09/2017 VICENTE MURO FACC, ALI FACP CCDS Ot J43.9 EMPHYSEMA, UNSPECIFIED 05/09/2017 VICENTE MURO FACC, ALI FACP CCDS Ot K21.9 GASTRO-ESOPHAGEAL REFLUX DISEASE WITHOUT 05/09/2017 VICENTE MURO FACC, ALI FACP CCDS Ot N52.9 MALE ERECTILE DYSFUNCTION, UNSPECIFIED 05/09/2017 VICENTE MURO FACC ALI FACP CCDS Ot R73.03 PREDIABETES 05/09/2017 VICENTE MURO FACC, ALI FACP CCDS Ot R74.8 ABNORMAL LEVELS OF OTHER SERUM ENZYMES 05/09/2017 VICENTE MURO FACC ALI FACP CCDS Ot T82.855A STENOSIS OF CORONARY ARTERY STENT, INITI 05/09/2017 VICENTE MURO FACC ALI FACP CCDS Ot Z23 ENCOUNTER FOR IMMUNIZATION 05/09/2017 DELORES ZHANG MD, FACC FACP CCDS Ot Z68.30 BODY MASS INDEX (BMI) 30.0-30.9, ADULT 05/09/2017 VICENTE MURO FACC ALI FACP CCDS Ot Z87.891 PERSONAL HISTORY OF NICOTINE DEPENDENCE 05/09/2017 VICENTE MURO FACC, ALI FACP CCDS Ot Z95.5 PRESENCE OF CORONARY ANGIOPLASTY IMPLANT 05/11/2017 DELORES ZHANG MD, FACC FACP CCDS Ot 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 05/11/2017 VICENTE MURO FACC, DELORES FACP CCDS Ot E29.1 TESTICULAR HYPOFUNCTION 05/11/2017 VICENTE MURO FACC, ALI FACP CCDS Ot E66.9 OBESITY, UNSPECIFIED 05/11/2017 VICENTE MURO FACC, ALI FACP CCDS Ot I10 ESSENTIAL (PRIMARY) HYPERTENSION 05/11/2017 VICENTE MURO FACC, DELORES FACP CCDS Ot I25.110 ATHSCL HEART DISEASE OF [place] ART W 05/11/2017 VICENTE MURO FACC, DELORES FACP CCDS Ot I65.23 OCCLUSION AND STENOSIS OF BILATERAL [place] 05/11/2017 VICENTE MURO FACC, DELORES FACP CCDS Ot J43.9 EMPHYSEMA, UNSPECIFIED 05/11/2017 VICENTE MURO FACC, DELORES FACP CCDS Ot K21.9 GASTRO-ESOPHAGEAL REFLUX DISEASE WITHOUT 05/11/2017 VICENTE MURO FACC, ALI FACP CCDS Ot N52.9 MALE ERECTILE DYSFUNCTION, UNSPECIFIED 05/11/2017 VICENTE MURO FACC, ALI FACP CCDS Ot R73.03 PREDIABETES 05/11/2017 VICENTE MURO FACC, ALI FACP CCDS Ot R74.8 ABNORMAL LEVELS OF OTHER SERUM ENZYMES 05/11/2017 VICENTE MURO FACC ALI FACP CCDS Ot T82.855A STENOSIS OF CORONARY ARTERY STENT, INITI 05/11/2017 VICENTE MURO FACC ALI FACP CCDS Ot Z23 ENCOUNTER FOR IMMUNIZATION 05/11/2017 DELORES ZHANG MD, FACC FACP CCDS Ot Z68.30 BODY MASS INDEX (BMI) 30.0-30.9, ADULT 05/11/2017 VICENTE MURO FACC ALI FACP CCDS Ot Z87.891 PERSONAL HISTORY OF NICOTINE DEPENDENCE 05/11/2017 VICENTE MURO FACC, DELORES FACP CCDS Ot Z95.5 PRESENCE OF CORONARY ANGIOPLASTY IMPLANT 05/14/2017 VICENTE MD FACC, ALI FACP CCDS Ot 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 05/14/2017 VICENTE MURO FACC, ALI FACP CCDS Ot E29.1 TESTICULAR HYPOFUNCTION 05/14/2017 VICENTE MURO FACC, ALI FACP CCDS Ot E66.9 OBESITY, UNSPECIFIED 05/14/2017 VICENTE MURO FACC, ALI FACP CCDS Ot I10 ESSENTIAL (PRIMARY) HYPERTENSION 05/14/2017 VICENTE MURO FACC, ALI FACP CCDS Ot I25.110 ATHSCL HEART DISEASE OF [place] ART W 05/14/2017 VICENTE MURO FACC, ALI FACP CCDS Ot I65.23 OCCLUSION AND STENOSIS OF BILATERAL [place] 05/14/2017 VICENTE MURO FACC, ALI FACP CCDS Ot J43.9 EMPHYSEMA, UNSPECIFIED 05/14/2017 VICENTE MURO FACC, ALI FACP CCDS Ot K21.9 GASTRO-ESOPHAGEAL REFLUX DISEASE WITHOUT 05/14/2017 VICENTE MURO FACC, ALI FACP CCDS Ot N52.9 MALE ERECTILE DYSFUNCTION, UNSPECIFIED 05/14/2017 VICENTE MURO FACC, ALI FACP CCDS Ot R73.03 PREDIABETES 05/14/2017 VICENTE MURO FACC, ALI FACP CCDS Ot R74.8 ABNORMAL LEVELS OF OTHER SERUM ENZYMES 05/14/2017 VICENTE MURO FACC, ALI FACP CCDS Ot T82.855A STENOSIS OF CORONARY ARTERY STENT, INITI 05/14/2017 VICENTE MURO FACC, ALI FACP CCDS Ot Z23 ENCOUNTER FOR IMMUNIZATION 05/14/2017 VICENTE MURO FACC, ALI FACP CCDS Ot Z68.30 BODY MASS INDEX (BMI) 30.0-30.9, ADULT 05/14/2017 VICENTE MURO FACC, ALI FACP CCDS Ot Z87.891 PERSONAL HISTORY OF NICOTINE DEPENDENCE 05/14/2017 VICENTE MURO FACC, ALI FACP CCDS Ot Z95.5 PRESENCE OF CORONARY ANGIOPLASTY IMPLANT 05/22/2017 RACHELLE DEVLIN APRN Ot M79.661 PAIN IN RIGHT LOWER LEG 05/22/2017 RACHELLE DEVLIN APRN Ot R22.41 LOCALIZED SWELLING, MASS AND LUMP, RIGHT Procedures Code Description Performed By Performed [place] [id number] DILATION OF CORONARY ARTERY, ONE ARTERY, 10/03/2016 [id number] MEASURE OF CARDIAC SAMPL PRESSURE, L H 10/03/2016 [id number] FLUOROSCOPY OF MULT COR ART USING L OSM 10/03/2016 [id number] FLUOROSCOPY OF LEFT HEART USING LOW OSMO 10/03/2016 Results Test Result Range Complete blood count (CBC) with automated white blood cell (WBC) differential - 10/02/16 15:19 Blood leukocytes automated count (number/volume) 5.9 10*3/uL 4.3-11.0 Blood erythrocytes automated count (number/volume) 5.02 10*6/uL 4.35-5.85 Venous blood hemoglobin measurement (mass/volume) 16.1 g/dL 13.3-17.7 Blood hematocrit (volume fraction) 45 % 40-54 Automated erythrocyte mean corpuscular volume 89 [foz_us] 80-99 Automated erythrocyte mean corpuscular hemoglobin (mass per erythrocyte) 32 pg 25-34 Automated erythrocyte mean corpuscular hemoglobin concentration measurement ( mass/volume) 36 g/dL 32-36 Automated erythrocyte distribution width ratio 12.2 % 10.0-14.5 Automated blood platelet count (count/volume) 232 10*3/uL 130-400 Automated blood platelet mean volume measurement 9.2 [foz_us] 7.4-10.4 Automated blood neutrophils/100 leukocytes 54 % 42-75 Automated blood lymphocytes/100 leukocytes 26 % 12-44 Blood monocytes/100 leukocytes 15 % 0-12 Automated blood eosinophils/100 leukocytes 3 % 0-10 Automated blood basophils/100 leukocytes 2 % 0-10 Blood neutrophils automated count (number/volume) 3.2 10*3 1.8-7.8 Blood lymphocytes automated count (number/volume) 1.6 10*3 1.0-4.0 Blood monocytes automated count (number/volume) 0.9 10*3 0.0-1.0 Automated eosinophil count 0.2 10*3/uL 0.0-0.3 Automated blood basophil count (count/volume) 0.1 10*3/uL 0.0-0.1 PT panel in platelet poor plasma by coagulation assay - 10/02/16 15:19 Prothrombin time (PT) in platelet poor plasma by coagulation assay 13.4 s 12.2-14.7 INR in platelet poor plasma or blood by coagulation assay 1.1 0.8-1.4 Activated partial thromboplastin time (aPTT) in platelet poor plasma bycoagulation assay - 10/02/16 15:19 Activated partial thromboplastin time (aPTT) in platelet poor plasma bycoagulation assay 30 s 24-35 Comprehensive metabolic panel - 10/02/16 15:19 Serum or plasma sodium measurement (moles/volume) 136 mmol/L 135-145 Serum or plasma potassium measurement (moles/volume) 3.4 mmol/L 3.6-5.0 Serum or plasma chloride measurement (moles/volume) 101 mmol/L 98-107 Carbon dioxide 25 mmol/L 21-32 Serum or plasma anion gap determination (moles/volume) 10 mmol/L 5-14 Serum or plasma urea nitrogen measurement (mass/volume) 17 mg/dL 7-18 Serum or plasma creatinine measurement (mass/volume) 1.04 mg/dL 0.60-1.30 Serum or plasma urea nitrogen/creatinine mass ratio 16 NRG Serum or plasma creatinine measurement with calculation of estimated glomerular filtration rate > NRG Serum or plasma glucose measurement (mass/volume) 120 mg/dL 70-105 Serum or plasma calcium measurement (mass/volume) 8.8 mg/dL 8.5-10.1 Serum or plasma total bilirubin measurement (mass/volume) 0.9 mg/dL 0.1-1.0 Serum or plasma alkaline phosphatase measurement (enzymatic activity/volume) 69 U/L 40-136 Serum or plasma aspartate aminotransferase measurement (enzymatic activity/ volume) 30 U/L 5-34 Serum or plasma alanine aminotransferase measurement (enzymatic activity/volume ) 36 U/L 0-55 Serum or plasma protein measurement (mass/volume) 7.0 g/dL 6.4-8.2 Serum or plasma albumin measurement (mass/volume) 4.2 g/dL 3.2-4.5 Serum or plasma troponin i.cardiac measurement (mass/volume) - 10/02/16 15:19 Serum or plasma troponin i.cardiac measurement (mass/volume) < ng/ mL <0.30 Serum or plasma lithium measurement (moles/volume) - 10/02/16 15:19 BNP level 11.8 pg/mL <100.0 Serum or plasma troponin i.cardiac measurement (mass/volume) - 10/02/16 20:50 Serum or plasma troponin i.cardiac measurement (mass/volume) < ng/ mL <0.30 Automated blood complete blood count (hemogram) panel - 10/03/16 04:35 Blood leukocytes automated count (number/volume) 7.0 10*3/uL 4.3-11.0 Blood erythrocytes automated count (number/volume) 5.31 10*6/uL 4.35-5.85 Venous blood hemoglobin measurement (mass/volume) 16.7 g/dL 13.3-17.7 Blood hematocrit (volume fraction) 47 % 40-54 Automated erythrocyte mean corpuscular volume 88 [foz_us] 80-99 Automated erythrocyte mean corpuscular hemoglobin (mass per erythrocyte) 32 pg 25-34 Automated erythrocyte mean corpuscular hemoglobin concentration measurement ( mass/volume) 36 g/dL 32-36 Automated erythrocyte distribution width ratio 12.2 % 10.0-14.5 Automated blood platelet count (count/volume) 217 10*3/uL 130-400 Automated blood platelet mean volume measurement 9.5 [foz_us] 7.4-10.4 PT panel in platelet poor plasma by coagulation assay - 10/03/16 04:35 Prothrombin time (PT) in platelet poor plasma by coagulation assay 14.0 s 12.2-14.7 INR in platelet poor plasma or blood by coagulation assay 1.1 0.8-1.4 Activated partial thromboplastin time (aPTT) in platelet poor plasma bycoagulation assay - 10/03/16 04:35 Activated partial thromboplastin time (aPTT) in platelet poor plasma bycoagulation assay 37 s 24-35 Comprehensive metabolic panel - 10/03/16 04:35 Serum or plasma sodium measurement (moles/volume) 134 mmol/L 135-145 Serum or plasma potassium measurement (moles/volume) 3.6 mmol/L 3.6-5.0 Serum or plasma chloride measurement (moles/volume) 102 mmol/L 98-107 Carbon dioxide 19 mmol/L 21-32 Serum or plasma anion gap determination (moles/volume) 13 mmol/L 5-14 Serum or plasma urea nitrogen measurement (mass/volume) 18 mg/dL 7-18 Serum or plasma creatinine measurement (mass/volume) 0.94 mg/dL 0.60-1.30 Serum or plasma urea nitrogen/creatinine mass ratio 19 NRG Serum or plasma creatinine measurement with calculation of estimated glomerular filtration rate > NRG Serum or plasma glucose measurement (mass/volume) 116 mg/dL 70-105 Serum or plasma calcium measurement (mass/volume) 8.8 mg/dL 8.5-10.1 Serum or plasma total bilirubin measurement (mass/volume) 0.9 mg/dL 0.1-1.0 Serum or plasma alkaline phosphatase measurement (enzymatic activity/volume) 61 U/L 40-136 Serum or plasma aspartate aminotransferase measurement (enzymatic activity/ volume) 29 U/L 5-34 Serum or plasma alanine aminotransferase measurement (enzymatic activity/volume ) 34 U/L 0-55 Serum or plasma protein measurement (mass/volume) 6.6 g/dL 6.4-8.2 Serum or plasma albumin measurement (mass/volume) 3.9 g/dL 3.2-4.5 Serum or plasma troponin i.cardiac measurement (mass/volume) - 10/03/16 04:35 Serum or plasma troponin i.cardiac measurement (mass/volume) < ng/ mL <0.30 Complete blood count (CBC) with automated white blood cell (WBC) differential - 04/18/17 13:40 Blood leukocytes automated count (number/volume) 7.1 10*3/uL 4.3-11.0 Blood erythrocytes automated count (number/volume) 5.03 10*6/uL 4.35-5.85 Venous blood hemoglobin measurement (mass/volume) 16.3 g/dL 13.3-17.7 Blood hematocrit (volume fraction) 45 % 40-54 Automated erythrocyte mean corpuscular volume 89 [foz_us] 80-99 Automated erythrocyte mean corpuscular hemoglobin (mass per erythrocyte) 32 pg 25-34 Automated erythrocyte mean corpuscular hemoglobin concentration measurement ( mass/volume) 36 g/dL 32-36 Automated erythrocyte distribution width ratio 12.3 % 10.0-14.5 Automated blood platelet count (count/volume) 237 10*3/uL 130-400 Automated blood platelet mean volume measurement 9.1 [foz_us] 7.4-10.4 Automated blood neutrophils/100 leukocytes 61 % 42-75 Automated blood lymphocytes/100 leukocytes 23 % 12-44 Blood monocytes/100 leukocytes 14 % 0-12 Automated blood eosinophils/100 leukocytes 2 % 0-10 Automated blood basophils/100 leukocytes 1 % 0-10 Blood neutrophils automated count (number/volume) 4.3 10*3 1.8-7.8 Blood lymphocytes automated count (number/volume) 1.6 10*3 1.0-4.0 Blood monocytes automated count (number/volume) 1.0 10*3 0.0-1.0 Automated eosinophil count 0.1 10*3/uL 0.0-0.3 Automated blood basophil count (count/volume) 0.1 10*3/uL 0.0-0.1 PT panel in platelet poor plasma by coagulation assay - 04/18/17 13:40 Prothrombin time (PT) in platelet poor plasma by coagulation assay 13.2 s 12.2-14.7 INR in platelet poor plasma or blood by coagulation assay 1.0 0.8-1.4 Activated partial thromboplastin time (aPTT) in platelet poor plasma bycoagulation assay - 04/18/17 13:40 Activated partial thromboplastin time (aPTT) in platelet poor plasma bycoagulation assay 30 s 24-35 Comprehensive metabolic panel - 04/18/17 13:40 Serum or plasma sodium measurement (moles/volume) 132 mmol/L 135-145 Serum or plasma potassium measurement (moles/volume) 4.0 mmol/L 3.6-5.0 Serum or plasma chloride measurement (moles/volume) 97 mmol/L 98-107 Carbon dioxide 28 mmol/L 21-32 Serum or plasma anion gap determination (moles/volume) 7 mmol/L 5-14 Serum or plasma urea nitrogen measurement (mass/volume) 14 mg/dL 7-18 Serum or plasma creatinine measurement (mass/volume) 0.98 mg/dL 0.60-1.30 Serum or plasma urea nitrogen/creatinine mass ratio 14 NRG Serum or plasma creatinine measurement with calculation of estimated glomerular filtration rate > NRG Serum or plasma glucose measurement (mass/volume) 103 mg/dL 70-105 Serum or plasma calcium measurement (mass/volume) 9.3 mg/dL 8.5-10.1 Serum or plasma total bilirubin measurement (mass/volume) 1.1 mg/dL 0.1-1.0 Serum or plasma alkaline phosphatase measurement (enzymatic activity/volume) 66 U/L 40-136 Serum or plasma aspartate aminotransferase measurement (enzymatic activity/ volume) 28 U/L 5-34 Serum or plasma alanine aminotransferase measurement (enzymatic activity/volume ) 33 U/L 0-55 Serum or plasma protein measurement (mass/volume) 7.8 g/dL 6.4-8.2 Serum or plasma albumin measurement (mass/volume) 4.6 g/dL 3.2-4.5 Serum or plasma troponin i.cardiac measurement (mass/volume) - 04/18/17 13:40 Serum or plasma troponin i.cardiac measurement (mass/volume) < ng/ mL <0.30 Encounters ACCT No. Visit Date/Time Discharge Status Pt. Type Provider Facility Loc./Unit Complaint [id number] 04/30/2017 16:19:00 04/30/2017 23:59:59 CLS Outpatient RACHELLE DEVLIN APRN [facility] RAD RT LEG SWELLING [id number] 04/18/2017 13:15:00 04/19/2017 09:00:00 DIS Outpatient VICENTE MURO FACCDELORES FACP CCDS [facility] CATH CAD,COPD, CHEST DISCOMFORT [id number] 10/02/2016 14:40:00 10/03/2016 20:50:00 DIS Outpatient Jeannette MORRIS MD [facility] CATH CHEST PAIN [id number] 10/02/2016 10:09:00 10/02/2016 23:59:59 CLS Outpatient LORE OLSON DO [facility] RAD ABD PAIN [id number] 10/02/2016 10:03:00 10/02/2016 23:59:59 CLS Outpatient SEYMOUR LOOMIS APRN [facility] RAD LUNG NODULE SEEN ON IMAGING [id number] 09/19/2016 11:09:00 09/19/2016 23:59:59 CLS Outpatient BERNADETTE PEREYRA [facility] CARD CHEST PAIN,CAD [id number] 12/01/2015 10:53:00 12/01/2015 23:59:59 CLS Outpatient MORRIS FOX MD [facility] LAB [id number] 12/01/2015 10:50:00 12/01/2015 23:59:59 CLS Outpatient CODY WAGGONER MD [facility] ONC [id number] 10/29/2015 13:00:00 10/29/2015 23:59:59 CLS Preadmit MORRIS FOX MD [facility] DSME DIABETES TYPE 2 [id number] 07/30/2015 13:22:00 10/28/2015 00:01:00 DIS Outpatient MORRIS FOX MD [facility] DSME DIABETES TYPE 2 [id number] 10/25/2015 08:15:00 10/25/2015 23:59:59 CLS Preadmit RACHELLE DEVLIN HEEL PRICKER [facility] PULM DYSPNEA [id number] 07/26/2015 08:17:00 10/24/2015 00:01:00 DIS Outpatient RACHELLE DEVLIN HEEL PRICKER [facility] PULM DYSPNEA [id number] 09/02/2015 13:34:00 10/13/2015 00:01:00 DIS Outpatient CODY WAGGONER MD [facility] ONC [id number] 08/10/2015 08:09:00 08/10/2015 23:59:59 CLS Outpatient VICENTE MURO FACC, DELORES REIS CCDS [facility] CARD CHEST DISCOMFORT, SOB [id number] 04/25/2015 20:11:00 04/26/2015 05:30:00 DIS Outpatient CONCETTA SNELL DO [facility] SLEEP SNORING HTN EXCESSIVE DAYTIME SLEEPINESS [id number] 03/03/2015 14:23:00 03/03/2015 23:59:59 CLS Outpatient CONCETTA SNELL DO [facility] RAD COPD DYSPNEA [id number] 01/01/2015 22:45:00 01/03/2015 10:35:00 DIS Inpatient MORRIS FOX MD [facility] 4TH CELLULITIS L FOOT [id number] 11/19/2014 07:30:00 11/19/2014 14:00:00 DIS Outpatient LORE OLSON DO [facility] SDC UMBILICAL HERNIA; SEBECEOUS CYSTS X 3 [id number] 11/17/2014 12:07:00 11/17/2014 23:59:59 CLS Outpatient LORE OLSON DO [facility] PREOP UMBILICAL HERNIA; SEBACEOUS CYST X3 [id number] 10/29/2014 10:00:00 10/29/2014 23:59:59 CLS Outpatient LORE OLSON DO [facility] CARD RUQ PAIN [id number] 10/02/2014 08:37:00 10/02/2014 23:59:59 CLS Outpatient OLSONLORE MCKINNON DO [facility] RAD RUQ PAIN [id number] 02/20/2014 09:13:00 04/05/2014 00:01:00 DIS Outpatient PILO LOGAN MD [facility] CR STENT/PTCA [id number] 01/19/2014 08:10:00 01/19/2014 23:59:59 CLS Outpatient JD CRESPO MD [facility] RT HEADACHE,CONFUSION, DIZZINESS [id number] 01/14/2014 10:25:00 01/14/2014 23:59:59 CLS Outpatient JD CRESPO MD [facility] LAB HAS CONFUSION [id number] 11/28/2013 09:38:00 11/28/2013 23:59:59 CLS Outpatient PILO LOGAN MD [facility] LAB CORONARY ATHEROSCLEROSIS [id number] 03/01/2016 00:00:00 Document Registration [id number] 09/24/2015 12:29:00 Document Registration [id number] 04/06/2014 09:00:00 Document Registration
--- OUTSIDE RECORDS SUMMARY | 2017-08-10 08:57 | XMS REPORT | Clinical Summary ---
Author Author [facility] Organization [facility] Address Unknown Phone Unavailable Care Team Providers Care Mail Manager Name Role Phone Ben Espinoza MD [address] Rooney MD, [facility] Unavailable Jak Jiménez MD Unavailable Juan Alberto Javier MD Unavailable Norman Castañeda MD PCP Cade Arvizu MD Unavailable Isaias Trinidad MD Unavailable Source Comments Some departments are not documenting in the electronic medical record. If you do not see the information that you expected, contact Release of Information in the Health Information Management department at [phone] for further assistance in locating additional records.[facility] Allergies No Known Allergies Current [...] Chest Pain. 16 Coronary artery disease involving [place] coronary artery, angina presence unspecified, unspecified whether [place] or transplanted heart losartan-hydrochlorothiaz Take 1 Tab [...] G. 11/06/12. CT scan chest with contrast, [facility]. Extensive apical scarring in both lungs. Emphysematous blebs and bulla present bilaterally. No evidence of CHF or pulmonary edema. No pneumonia or pleural effusion, quit smoking Coronary artery disease 01/03/2008 Overview: a. 05/08/07 - Exercise echo at [facility]: LVID 4.5. LA 2.6. EF 60%. Mild LVH. Patient exercised 10.5 minutes and complained of left pectoral discomfort. ECG demonstrated 1.[address] depression inferolateral leads. Echocardiogram showed apical septal and basal inferior hypokinesis. b. 05/10/07 - Cardiac cath at [facility] [place], Dr. Rooney: LM ostial 20%. LAD prox [...] changes. f. On 01/12/2009, cardiac cath at [facility] [place] showed LVEF 55%, no MR, LM normal, [...] a. Mother with diabetes and had possible SC, angioplasty and possible stent. b. Father had [...] Diflucan. Advised to seek GI consult at [facility]. c. 01/01/09 - complete relief of the dysphagia symptoms on Diflucan course. Patient underwent EGD at [facility]. By then, his esophagus was free of Geovanni. d. In December 2008, EGD at [facility] [place], by Dr. Bell, with no evidence of Geovanni and mild edema of the lower esophagus, placed on PPI for 1 month. SSS (sick sinus syndrome) ([facility]) Overview: a. 02/04/2009, heart rate 45 beats [...] Taken Blood Pressure 122/70 07/19/2015 2:51 PM [employer] Pulse 74 07/19/2015 2:47 PM [employer] Temperature 36.4 C (97.5 F) 12/03/2013 7:00 AM CDT Respiratory Rate 18 05/11/2007 9:34 AM [employer] Oxygen Saturation 97% 12/03/2013 7:00 AM CDT Inhaled Oxygen - - Concentration Weight 103.4 kg (228 lb) 07/19/2015 2:47 PM [employer] Height 180.3 cm (5' 10.98") 07/19/2015 2:47 PM [employer] Body Mass Index 31.81 07/19/2015 2:47 PM [employer] Plan of Treatment Health Maintenance Due Date Last Done Comments HEPATITIS C SCREENING 1945 PHYSICAL (COMPREHENSIVE) 1954 EXAM PERTUSSIS VACCINE 1958 TETANUS VACCINE 01/22/1964 COLORECTAL CANCER 1997 SCREENING SHINGLES VACCINE 2007 ABDOMINAL AORTIC ANEURYSM 01/22/2012 SCREENING PREVNAR/PNEUMOVAX (#1) 01/22/2012 INFLUENZA VACCINE 01/23/2017 Results Not on filefrom Last 3 Months
--- OUTSIDE RECORDS SUMMARY | 2017-08-10 08:59 | XMS REPORT | Continuity of Care Document ---
Author Author [facility] Organization [facility] Address Unknown Phone Unavailable Allergies Active Description Code Type Severity Reaction Onset Reported/Identified Relationship to Patient Clinical Status Yes No Known Drug Allergies [id number] Drug Allergy Unknown N/A 10/29/2014 Medications There [...] MORRIS Chavez Ot 414.01 CORONARY ATHEROSCLEROSIS OF [place] CORON 01/03/2015 RUDDY MURO, MORRIS Chavez Ot [...] 07/26/2015 Ot V57.89 07/26/2015 Ot V58.73 07/26/2015 HAMILTON DO, LORE D Ot 571.8 07/26/2015 OLSON [...] MURO, AHMED T Ot 784.0 07/26/2015 CHERIE UMRO, AHMED T Ot 298.9 07/26/2015 CHERIE MURO, [...] ALI FACP CCDS Ot I25.10 08/12/2015 VICENTE UMRO FACC, ALI FACP CCDS Ot J43.8 08/12/2015 VICENTE MURO FACC, ALI FACP CCDS Ot R07.89 08/23/2015 VICENTE MURO FACC, ALI FACP CCDS Ot I25.10 08/23/2015 VICENTE MURO FACC, ALI FACP CCDS Ot J43.8 08/23/2015 VICENTE MURO [facility] CCDS Ot R07.89 08/25/2015 ROSALINE MURO, [...] OLSONLORE MCKINNON DO Ot 571.8 09/16/2015 OLSON LORE ARREDONDO Ot 789.01 09/16/2015 OLSONLORE MCKINNON DO Ot 789.01 09/16/2015 OLSONLORE MCKINNON DO Ot 553.1 09/16/2015 OLSON LORE ARREDONDO Ot 706.2 09/16/2015 OLSON LORE ARREDONDO Ot V72.63 09/16/2015 OLSON LORE ARREDONDO Ot V72.81 09/16/2015 OLSON LORE ARREDONDO Ot V74.8 09/16/2015 CONCETTA SNELL DO Ot 496 09/16/2015 CONCETTA SNELL DO Ot 786.09 09/16/2015 RACHLELE DEVLIN APRN Ot R06.00 09/16/2015 ROSALINE MURO, [...] FACP CCDS Ot R07.89 09/16/2015 RACHELLE DEVLIN PLANER OPERATOR Ot R06.00 09/28/2015 MORRIS FOX MD Ot E11.9 09/28/2015 Ot J44.9 10/13/2015 CODY WAGGONER MD Ot D75.1 SECONDARY POLYCYTHEMIA 10/13/2015 CODY WAGGONER MD Ot I10 ESSENTIAL (PRIMARY) HYPERTENSION 10/13/2015 CODY WAGGONER MD Ot J44.9 CHRONIC OBSTRUCTIVE PULMONARY DISEASE, U 10/13/2015 CODY WAGGONER MD Ot Z79.899 OTHER PACKAGE SORTER (CURRENT) DRUG THERAPY 10/14/2015 CODY WAGGONER MD Ot D75.1 SECONDARY POLYCYTHEMIA 10/14/2015 CODY WAGGONER MD Ot I10 ESSENTIAL (PRIMARY) HYPERTENSION 10/14/2015 CODY WAGGONER MD Ot J44.9 CHRONIC OBSTRUCTIVE PULMONARY DISEASE, U 10/14/2015 CODY WAGGONER MD Ot Z79.899 OTHER PACKAGE SORTER (CURRENT) DRUG THERAPY 10/24/2015 RACHELLE DEVLIN PLANER OPERATOR Ot R06.00 DYSPNEA, UNSPECIFIED 10/28/2015 MORRIS FOX MD Ot E11.9 TYPE 2 DIABETES MELLITUS WITHOUT COMPLIC 10/31/2015 RACHELLE DEVLIN PLANER OPERATOR Ot R06.00 DYSPNEA, UNSPECIFIED 11/25/2015 CODY WAGGONER MD Ot D75.1 SECONDARY POLYCYTHEMIA 11/25/2015 CODY WAGGONER MD Ot I10 ESSENTIAL (PRIMARY) HYPERTENSION 11/25/2015 CODY WAGGONER MD Ot J44.9 CHRONIC OBSTRUCTIVE PULMONARY DISEASE, U 11/25/2015 CODY WAGGONER MD Ot Z79.899 OTHER PACKAGE SORTER (CURRENT) DRUG THERAPY 12/02/2015 MORRIS FOX MD [...] 12/06/2015 CODY WAGGONER MD Ot Z79.899 OTHER PACKAGE SORTER (CURRENT) DRUG THERAPY 02/29/2016 CODY WAGGONER MD Ot D75.1 SECONDARY POLYCYTHEMIA 02/29/2016 CODY WAGGONER MD Ot I10 ESSENTIAL (PRIMARY) HYPERTENSION 02/29/2016 CODY WAGGONER MD Ot J44.9 CHRONIC OBSTRUCTIVE PULMONARY DISEASE, U 02/29/2016 CDOY WAGGONER MD Ot Z79.899 OTHER MCC (CURRENT) DRUG THERAPY 09/19/2016 PILO LOGAN MD R Ot 414.00 CORON ATHEROSCLER NOS TYPE VESSEL, NATIV 09/19/2016 PILO LOGAN MD R Ot 427.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 [...] EXAMINATION 09/19/2016 LORE OLSON DO Ot V72.81 [id number] CARDIOVASCULAR 09/19/2016 LORE OLSON DO Ot V74.8 SCREEN-BACTERIAL DIS NEC 09/19/2016 CONCETTA SNELL DO Ot 496 CHR AIRWAY OBSTRUCT NEC 09/19/2016 CONCETTA SNELL DO Ot 786.09 RESPIRATORY ABNORM NEC 09/19/2016 Ot J44.9 CHRONIC OBSTRUCTIVE PULMONARY DISEASE, U 09/19/2016 VICENTE MURO FAC, ALI FACP CCDS Ot I25.10 ATHSCL HEART DISEASE OF [place] CORONARY 09/19/2016 VICENTE MURO FAC, ALI FACP CCDS Ot J43.8 OTHER EMPHYSEMA 09/19/2016 VICENTE MURO FAC, ALI FACP CCDS Ot R07.89 OTHER [...] PULMONARY DISEASE, U 09/19/2016 Ot Z79.899 OTHER MCC (CURRENT) DRUG THERAPY 10/02/2016 DESMOND MURO, PILO [...] 780.4 DIZZINESS AND GIDDINESS 10/02/2016 CHERIE MURO, DJ Morales Ot 784.0 HEADACHE 10/02/2016 CHERIE MURO, JD Morales Ot 298.9 PSYCHOSIS NOS 10/02/2016 CHERIE MURO, JD Morales Ot 780.4 DIZZINESS AND GIDDINESS 10/02/2016 JD CRESPO MD Ot 784.0 HEADACHE 10/02/2016 Ot V45.82 PERCUTANEOUS TRANSLUM CORON ANGIOPLASTY 10/02/2016 Ot V57.89 REHABILITATION PROC NEC 10/02/2016 Ot V58.73 AFTERCARE POST SURGERY CIRULATORY SYSTEM 10/02/2016 SEYMOUR LOOMIS PLANER OPERATOR Ot J48.0 10/02/2016 DESMOND MURO, PILO R [...] EXAMINATION 10/02/2016 LORE OLSON DO Ot V72.81 [id number] CARDIOVASCULAR 10/02/2016 LORE OLSON DO Ot V74.8 SCREEN-BACTERIAL DIS NEC 10/02/2016 CONCETTA SNELL DO Ot 496 CHR AIRWAY OBSTRUCT NEC 10/02/2016 CONCETTA SNELL DO Ot 786.09 RESPIRATORY ABNORM NEC 10/02/2016 Ot J44.9 CHRONIC OBSTRUCTIVE PULMONARY DISEASE, U 10/02/2016 VICENTE MURO FACC, ALI FACP CCDS Ot I25.10 ATHSCL HEART DISEASE OF [place] CORONARY 10/02/2016 VICENTE MURO FACC, ALI FACP CCDS Ot J43.8 OTHER EMPHYSEMA 10/02/2016 VICENTE MURO FACC, ALI FACP CCDS Ot R07.89 OTHER CHEST PAIN 10/02/2016 SEYMOUR LOOMIS APRN Ot J48.0 10/02/2016 RACHELLE DEVLIN PLANER OPERATOR Ot R06.00 DYSPNEA, UNSPECIFIED 10/02/2016 RUDDY MURO, MORRIS Chavez Ot E11.9 TYPE 2 DIABETES MELLITUS WITHOUT COMPLIC 10/02/2016 MORRIS FOX MD Ot E03.9 HYPOTHYROIDISM, UNSPECIFIED 10/02/2016 RUDDY MURO, MORRIS Chavez Ot E11.65 TYPE 2 DIABETES MELLITUS WITH HYPERGLYCE 10/02/2016 RUDDY MURO, MORRIS Chavez Ot I10 ESSENTIAL (PRIMARY) HYPERTENSION 10/02/2016 Ot D75.1 SECONDARY POLYCYTHEMIA 10/02/2016 Ot I10 ESSENTIAL ( PRIMARY) HYPERTENSION 10/02/2016 Ot J44.9 CHRONIC OBSTRUCTIVE PULMONARY DISEASE, U 10/02/2016 Ot Z79.899 OTHER MCC (CURRENT) DRUG THERAPY 10/02/2016 BERNADETTE PEREYRA PAY PER CLICK STRATEGIST Ot I10 ESSENTIAL (PRIMARY) HYPERTENSION 10/02/2016 BERNADETTE PEREYRA L PAY PER CLICK STRATEGIST Ot I25.10 ATHSCL HEART DISEASE OF [place] CORONARY 10/02/2016 BERNADETTE PEREYRA L PAY PER CLICK STRATEGIST Ot I65.23 OCCLUSION AND STENOSIS OF [place] 10/02/2016 BERNADETTE PEREYRA L PAY PER CLICK STRATEGIST Ot R06.02 SHORTNESS OF BREATH 10/02/2016 BERNADETTE PEREYRA L PAY PER CLICK STRATEGIST Ot R07.89 OTHER CHEST PAIN 10/02/2016 SEYMOUR [...] MD Ot I25.110 ATHSCL HEART DISEASE OF [place] COR ART W 10/03/2016 Jeannette MORRIS MD, Ot J44.9 CHRONIC OBSTRUCTIVE PULMONARY DISEASE, U 10/03/2016 Jeannette MORRIS MD Ot T82.855A STENOSIS OF CORONARY ARTERY STENT, INITI 10/03/2016 Jeannette MORRIS MD Ot Z79.899 OTHER MCC (CURRENT) DRUG THERAPY 10/03/2016 Jeannette MORRIS MD [...] MD Ot I25.110 ATHSCL HEART DISEASE OF [place] COR ART W 10/06/2016 Jeannette MORRIS MD, Ot J44.9 CHRONIC OBSTRUCTIVE PULMONARY DISEASE, U 10/06/2016 Jeannette MORIRS MD, Ot T82.855A STENOSIS OF CORONARY ARTERY STENT, INITI 10/06/2016 ALEXANDRA MURO, Jeannette MORALES Ot Z87.891 PERSONAL HISTORY OF NICOTINE DEPENDENCE 10/06/2016 ALEXANDRA MURO, Jeannette MORALES Ot Z95.5 PRESENCE OF CORONARY ANGIOPLASTY [...] NOT ELSEWHERE C 11/15/2016 BERNADETTE PEREYRA L PAY PER CLICK STRATEGIST Ot I10 ESSENTIAL (PRIMARY) HYPERTENSION 11/15/2016 BERNADETTE PEREYRA L PAY PER CLICK STRATEGIST Ot I25.10 ATHSCL HEART DISEASE OF [place] CORONARY 11/15/2016 BERNADETTE PEREYRA PAY PER CLICK STRATEGIST Ot I65.23 OCCLUSION AND STENOSIS OF [place] 11/15/2016 BERNADETTE PEREYRA L PAY PER CLICK STRATEGIST Ot R06.02 SHORTNESS OF BREATH 11/15/2016 BERNADETTE PEREYRA PAY PER CLICK STRATEGIST Ot R07.89 OTHER CHEST PAIN 11/15/2016 BERNADETTE PEREYRA L PAY PER CLICK STRATEGIST Ot I10 ESSENTIAL (PRIMARY) HYPERTENSION 11/15/2016 BERNADETTE PEREYRA PAY PER CLICK STRATEGIST Ot I25.10 ATHSCL HEART DISEASE OF [place] CORONARY 11/15/2016 BERNADETTE PEREYRA PAY PER CLICK STRATEGIST Ot I65.23 OCCLUSION AND STENOSIS OF [place] 11/15/2016 BERNADETTE PEREYRA PAY PER CLICK STRATEGIST Ot R06.02 SHORTNESS OF BREATH 11/15/2016 BERNADETTE PEREYRA PAY PER CLICK STRATEGIST Ot R07.89 OTHER CHEST PAIN 11/30/2016 SEYMOUR LOOMIS PLANER OPERATOR Ot J43.9 EMPHYSEMA, UNSPECIFIED 01/01/2017 SEYMOUR LOOMIS PLANER OPERATOR Ot J43.9 EMPHYSEMA, UNSPECIFIED 01/03/2017 SEYMOUR LOOMIS PLANER OPERATOR Ot J43.9 EMPHYSEMA, UNSPECIFIED 04/19/2017 VICENTE MURO FACC, DELORES FACP CCDS Ot 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 04/19/2017 VICENTE MURO FACC, DELORES FACP CCDS Ot E29.1 TESTICULAR HYPOFUNCTION 04/19/2017 VICENTE MURO FACC, ALI FACP CCDS Ot E66.9 OBESITY, UNSPECIFIED 04/19/2017 VICENTE MURO FACC, ALI FACP CCDS Ot I10 ESSENTIAL (PRIMARY) HYPERTENSION 04/19/2017 VICENTE MURO FACC, DELORES FACP CCDS Ot I25.110 ATHSCL HEART DISEASE OF [place] COR ART W 04/19/2017 VICENTE MURO FACC, [...] IN RIGHT LOWER LEG 05/02/2017 RACHELLE DEVLIN PLANER OPERATOR Ot R22.41 LOCALIZED SWELLING, MASS AND LUMP, [...] CCDS Ot I25.110 ATHSCL HEART DISEASE OF [place] COR ART W 05/09/2017 VICENTE MURO FACC, [...] FACP CCDS Ot R73.03 PREDIABETES 05/09/2017 VICENTE MRUO FACC, ALI FACP CCDS Ot R74.8 ABNORMAL [...] CCDS Ot I25.110 ATHSCL HEART DISEASE OF [place] COR ART W 05/11/2017 VICENTE MURO FACC, [...] CCDS Ot I25.110 ATHSCL HEART DISEASE OF [place] COR ART W 05/14/2017 VICENTE MURO FACC, [...] Procedures Code Description Performed By [place]formed [place] [id number] DILATION OF CORONARY ARTERY, ONE ARTERY, 10/03/2016 [id number] MEASURE OF CARDIAC SAMPL PRESSURE, L H 10/03/2016 [id number] FLUOROSCOPY OF MULT COR ART USING L OSM 10/03/2016 [id number] FLUOROSCOPY OF LEFT HEART USING LOW OSMO [...] Status Pt. Type Provider Facility Loc./Unit Complaint [id number] 04/30/2017 16:19:00 04/30/2017 23:59:59 CLS Outpatient RACHELLE DEVLIN APRN [facility] RAD RT LEG SWELLING [id number] 04/18/2017 13:15:00 04/19/2017 09:00:00 DIS Outpatient VICENTE MURO FACCDELORES FACP CCDS [facility] CATH CAD,COPD, CHEST DISCOMFORT [id number] 10/02/2016 14:40:00 10/03/2016 20:50:00 DIS Outpatient Jeannette MORRIS MD [facility] CATH CHEST PAIN [id number] 10/02/2016 10:09:00 10/02/2016 23:59:59 CLS Outpatient LORE OLSON DO [facility] RAD ABD PAIN [id number] 10/02/2016 10:03:00 10/02/2016 23:59:59 CLS Outpatient SEYMOUR LOOMIS APRN [facility] RAD LUNG NODULE SEEN ON IMAGING [id number] 09/19/2016 11:09:00 09/19/2016 23:59:59 CLS Outpatient BERNADETTE PEREYRA [facility] CARD CHEST PAIN,CAD [id number] 12/01/2015 10:53:00 12/01/2015 23:59:59 CLS Outpatient MORRIS FOX MD [facility] LAB [id number] 12/01/2015 10:50:00 12/01/2015 23:59:59 CLS Outpatient CODY WAGGONER MD [facility] ONC [id number] 10/29/2015 13:00:00 10/29/2015 23:59:59 CLS Preadmit MORRIS FOX MD [facility] DSME DIABETES TYPE 2 [id number] 07/30/2015 13:22:00 10/28/2015 00:01:00 DIS Outpatient MORRIS FOX MD [facility] DSME DIABETES TYPE 2 [id number] 10/25/2015 08:15:00 10/25/2015 23:59:59 CLS Preadmit RACHELLE DEVLIN PLANER OPERATOR [facility] PULM DYSPNEA [id number] 07/26/2015 08:17:00 10/24/2015 00:01:00 DIS Outpatient RACHELLE DEVLIN PLANER OPERATOR [facility] PULM DYSPNEA [id number] 09/02/2015 13:34:00 10/13/2015 00:01:00 DIS Outpatient CODY WAGGONER MD [facility] ONC [id number] 08/10/2015 08:09:00 08/10/2015 23:59:59 CLS Outpatient VICENTE MURO FACC, DELORES REIS CCDS [facility] CARD CHEST DISCOMFORT, SOB [id number] 04/25/2015 20:11:00 04/26/2015 05:30:00 DIS Outpatient CONCETTA SNELL DO [facility] SLEEP SNORING HTN EXCESSIVE DAYTIME SLEEPINESS [id number] 03/03/2015 14:23:00 03/03/2015 23:59:59 CLS Outpatient CONCETTA SNELL DO [facility] RAD COPD DYSPNEA [id number] 01/01/2015 22:45:00 01/03/2015 10:35:00 DIS Inpatient MORRIS FOX MD [facility] 4TH CELLULITIS L FOOT [id number] 11/19/2014 07:30:00 11/19/2014 14:00:00 DIS Outpatient LORE OLSON DO [facility] SDC UMBILICAL HERNIA; SEBECEOUS CYSTS X 3 [id number] 11/17/2014 12:07:00 11/17/2014 23:59:59 CLS Outpatient LORE OLSON DO [facility] PREOP UMBILICAL HERNIA; SEBACEOUS CYST X3 [id number] 10/29/2014 10:00:00 10/29/2014 23:59:59 CLS Outpatient LORE OLSON DO [facility] CARD RUQ PAIN [id number] 10/02/2014 08:37:00 10/02/2014 23:59:59 CLS Outpatient OLSONLORE MCKINNON DO [facility] RAD RUQ PAIN [id number] 02/20/2014 09:13:00 04/05/2014 00:01:00 DIS Outpatient PILO LOGNA MD [facility] CR STENT/PTCA [id number] 01/19/2014 08:10:00 01/19/2014 23:59:59 CLS Outpatient JD CRESPO MD [facility] RT HEADACHE,CONFUSION, DIZZINESS [id number] 01/14/2014 10:25:00 01/14/2014 23:59:59 CLS Outpatient JD CRESOP MD [facility] LAB HAS CONFUSION [id number] 11/28/2013 09:38:00 11/28/2013 23:59:59 CLS Outpatient PILO LOGAN MD [facility] LAB CORONARY ATHEROSCLEROSIS [id number] 03/01/2016 00:00:00 Document Registration [id number] 09/24/2015 12:29:00 Document Registration [id number] 04/06/2014 09:00:00 Document Registration
== END 2017-08-08 08:49 | disposition home or self-care (01) ==
LOC: ICU 11:25 → UNDOADMIN 11:25 → EDSTATUS 12:45 → UNDODISIN 08-08 10:35
PROVIDERS: ADMIT Internal Medicine Interventional Cardiology; ATTEND Internal Medicine Interventional Cardiology
DX: I25.110 Atherosclerotic heart disease of native coronary artery with unstable angina pectoris (principal); T82.855A Stenosis of coronary artery stent, initial encounter; E87.1 Hypo-osmolality and hyponatremia; J43.9 Emphysema, unspecified; E78.00 Pure hypercholesterolemia, unspecified; I10 Essential (primary) hypertension; K21.9 Gastro-esophageal reflux disease without esophagitis; K59.09 Other constipation; E11.9 Type 2 diabetes mellitus without complications; E03.9 Hypothyroidism, unspecified; M19.91 Primary osteoarthritis, unspecified site; M54.9 Dorsalgia, unspecified; Z95.5 Presence of coronary angioplasty implant and graft; Z87.891 Personal history of nicotine dependence; Z79.84 Long term (current) use of oral hypoglycemic drugs
CPT/HCPCS: 36221; 36415; 78452; 80048; 80053; 80061; 82962; 83735; 83880; 84484; 85007; 85025; 85027; 85347; 92978; 93017; 93306; 93458; 99211

== ENCOUNTER 2017-08-30 05:38 | Outpatient (CLI) | payer MEDICARE ==
[~2017-08-30] VITALS: Ht 180.3 cm; Wt 102.5 kg
[~2017-08-30 05:38] MED LIST changes: +LOSA100T28 PO; +SUCR1TAB36 PO
[2017-08-30] MEDS ORDERED: LOSA100T28 PO (10:57)
[2017-08-30] MEDS ORDERED: SUCR1TAB PO (10:57)
== END 2017-08-30 10:59 ==
LOC: PREOP 05:38
PROVIDERS: ATTEND Surgery
DX: Z01.818 Encounter for other preprocedural examination (principal); K21.9 Gastro-esophageal reflux disease without esophagitis; R10.13 Epigastric pain; R19.4 Change in bowel habit

== ENCOUNTER 2017-08-31 08:21 | Day surgery (SDC) | payer MEDICARE ==
[~2017-08-31] VITALS: Ht 180.3 cm; Wt 102.5 kg
[~2017-08-31 08:21] MED LIST changes: +SUCR1TAB PO
[2017-08-31] MEDS ORDERED: LACTATED RINGERS 1,000 ML IV STA (08:31)
[2017-08-31] MEDS ORDERED: HURRICAINE EXT TUBE (BENZOCAINE) XX PRN (08:45)
[2017-08-31] MEDS ORDERED: PROPOFOL INJECTION 50 ML IV ONE (09:40)
[2017-08-31] MEDS ORDERED: MIDAZOLAM 2 MG/2 ML (VERSED) VIAL ONE (09:40)
[2017-08-31] MEDS ORDERED: HURRICAINE EXT TUBE (BENZOCAINE) ONE (09:51)
--- NOTE | 2017-08-31 10:53 | Progress Note-Pre Operative ---
Pre-Operative Progress Note H&P Reviewed The H&P was reviewed, patient examined and no changes noted. Date Seen by Provider: Aug 31, 2017 Time Seen by Provider: 09:00 Date H&P Reviewed: Aug 31, 2017 Time H&P Reviewed: 09:00 Pre-Operative Diagnosis: epigastric abdominal pain, gerd, change in bowel habits LORE OLSON DO Aug 31, 2017 10:53
--- NOTE | 2017-08-31 10:59 | Progress Note-Post Operative ---
Post-Operative Progess Note Surgeon (s)/Tv Production Assistant (s) Surgeon LORE OLSON DO Tv Production Assistant: na Pre-Operative Diagnosis epigastric abdominal pain, gerd, change in bowel habits Post-Operative Diagnosis gastritis, hiatal hernia, polyps of colon Procedure & Operative Findings Date of Procedure 08/31/17 Procedure Performed/Findings egd c biopsies, colonoscopy with hot bx polypectomy x 2 Anesthesia Type per sort operations supervisor Estimated Blood Loss Estimated blood loss (mL): none Specimens/Packing Specimens Removed antrum GE colon polyps LORE OLSON DO Aug 31, 2017 10:58
--- NOTE | 2017-08-31 11:00 | Discharge Inst-Simple/Standard ---
Discharge Inst-Standard Patient Instructions/Follow Up Plan of Care/Instructions/FU: 2 weeks Roxanne Activity as Tolerated: Yes Discharge Diet: Regular Diet LORE OLSON DO Aug 31, 2017 11:00
[2017-08-31 11:05] VITALS: BP 147/78
[2017-08-31 11:40] VITALS: BP 158/67
[2017-08-31 11:50] VITALS: BP 158/67
--- NOTE | 2017-08-31 14:57 | Anesthesia-General Post-Op ---
MAC Patient Condition Mental Status/LOC: Same as Preop Cardiovascular: Satisfactory Nausea/Vomiting: Absent Respiratory: Satisfactory Pain: Controlled Complications: Absent Post Op Complications Complications None Follow Up Care/Instructions Patient Instructions None needed. Anesthesiology Discharge Order Discharge Order Patient is doing well, no complaints, stable vital signs, no apparent adverse anesthesia problems. No complications reported per nursing. JERRY KHOURY CRNA Aug 31, 2017 14:57
--- NOTE | 2017-08-31 17:13 | OPERATIVE REPORT ---
DATE OF SERVICE: 08/31/2017 PREOPERATIVE DIAGNOSIS: Epigastric abdominal pain, gastroesophageal reflux disease, and change in bowel habits. POSTOPERATIVE DIAGNOSIS: Gastritis, hiatal hernia, ascending and rectal polyps. PROCEDURE: EGD with biopsies and colonoscopy with hot biopsy polypectomy x2. SURGEON: Lore Oliveira DO ANESTHESIA: Per TRAUMA COUNSELLOR. ESTIMATED BLOOD LOSS: None. COMPLICATIONS: None. INDICATIONS: The patient is a 72-year-old male, who has been having some epigastric abdominal pain and gastroesophageal reflux disease. He also has had change in bowel habits. He understands risks and benefits of procedure and wish to proceed with procedure. Consent was signed on chart. DESCRIPTION OF PROCEDURE: The patient was taken to the endoscopy suite, placed in left lateral recumbent position. Timeout was performed. Scope was inserted in mouth, down the esophagus, stomach and duodenum without difficulty. There were no polyps, mass or ulcerations within the duodenum. Scope was slowly retracted back into the stomach, which was further insufflated. Some slight gastritis appearance. Biopsy of the antrum was obtained. There were no polyps, masses or ulcerations. The scope was retroflexed noting a small hiatal hernia. No other pathology noted. Scope was returned to its normal position, slowly withdrawn to the distal esophagus. Biopsy of the GE junction was obtained. Scope was then slowly retracted back noting no other pathology. Digital rectal exam was performed. There were no palpable polyps, masses or ulcerations. The scope was inserted in the rectum and advanced all the way to the cecum with minimal difficulty. Prep was adequate. Scope was then slowly retracted back. There were no polyps, masses or ulcerations within the cecum. Small polyp was present in the ascending colon, hot biopsy was performed. Scope was continuously retracted back through a transverse, descending and sigmoid colon without any other pathology noted. Scope was continuously retracted back into the rectum where a small polyp was present, which hot biopsy polypectomy was performed. Scope was retroflexed noting no other pathology. Scope was returned to its normal position, slowly withdrawn until completely removed, noting no other pathology. RECOMMENDATIONS: The patient is to continue on Protonix at this time. We will follow up on biopsies. The patient will need repeat colonoscopy in 5 years unless he has any problems and should be reevaluated at that time. Job ID: [id number] DocumentID: [id number] Dictated Date: 08/31/2017 11:20:12 Aircraft Cylinder Mechanic Date: 08/31/2017 17:12:06 Dictated By: LORE OLIVEIRA DO
--- OUTSIDE RECORDS SUMMARY | 2017-09-02 03:59 | XMS REPORT | Clinical Summary ---
Author Author [facility] Organization [facility] Address Unknown Phone Unavailable Care Team Providers Care Camera Supervisor Name Role Phone Ben Espinoza MD 100 Papi Rooney MD, [facility] Unavailable Jak Jiménez MD Unavailable Juan Alberto Javier MD Unavailable Norman Castañeda MD PCP Cade Arvizu MD Unavailable Isaias Trinidad MD Unavailable Source Comments Some departments are not documenting in the electronic medical record. If you do not see the information that you expected, contact Release of Information in the Health Information Management department at [phone] for further assistance in locating additional records.[facility] Allergies No Known Allergies Current Medications [...] Chest Pain. 16 Coronary artery disease involving [place] coronary artery, angina presence unspecified, unspecified whether [place] or transplanted heart losartan-hydrochlorothiaz Take 1 Tab [...] G. 11/06/12. CT scan chest with contrast, [facility]. Extensive apical scarring in both lungs. Emphysematous blebs and bulla present bilaterally. No evidence of CHF or pulmonary edema. No pneumonia or pleural effusion, quit smoking Coronary artery disease 01/03/2008 Overview: a. 05/08/07 - Exercise echo at [facility] MAC: LVID 4.5. LA 2.6. EF 60%. Mild LVH. Patient exercised 10.5 minutes and complained of left pectoral discomfort. ECG demonstrated 1.[address] depression inferolateral leads. Echocardiogram showed apical septal and basal inferior hypokinesis. b. 05/10/07 - Cardiac cath at [facility], Dr. Rooney: LM ostial 20%. LAD prox 40%. Circ 30%, OM-2 40%. RCA mid 80%. PCI of RCA done using 2.5 x 20 mm Cypher stent (NANCY). c. 01/02/08 - Recurrent substernal discomfort at night. Cardiac cath a [facility] on 01/20/[address] Dietrich. LM [...] changes. f. On 01/12/2009, cardiac cath at [facility] showed LVEF 55%, no MR, LM normal, [...] a. Mother with diabetes and had possible [place], angioplasty and possible stent. b. Father had [...] Diflucan. Advised to seek GI consult at [facility]. c. 01/01/09 - complete relief of the dysphagia symptoms on Diflucan course. Patient underwent EGD at [facility]. By then, his esophagus was free of Geovanni. d. In December 2008, EGD at [facility], by Dr. Bell, with no evidence of Geovanni and mild edema of the lower esophagus, placed on PPI for 1 month. SSS (sick sinus syndrome) ([facility]) Overview: a. 02/04/2009, heart rate 45 beats [...] Taken Blood Pressure 122/70 07/19/2015 2:51 PM MACHINE MAINTENANCE REPAIRER Pulse 74 07/19/2015 2:47 PM MACHINE MAINTENANCE REPAIRER Temperature 36.4 C (97.5 F) 12/03/2013 7:00 AM CDT Respiratory Rate 18 05/11/2007 9:34 AM MACHINE MAINTENANCE REPAIRER Oxygen Saturation 97% 12/03/2013 7:00 AM CDT Inhaled Oxygen - - Concentration Weight 103.4 kg (228 lb) 07/19/2015 2:47 PM MACHINE MAINTENANCE REPAIRER Height 180.3 cm (5' 10.98") 07/19/2015 2:47 PM MACHINE MAINTENANCE REPAIRER Body Mass Index 31.81 07/19/2015 2:47 PM MACHINE MAINTENANCE REPAIRER Plan of Treatment Health Maintenance Due Date Last Done Comments HEPATITIS C SCREENING 1945 PHYSICAL (COMPREHENSIVE) 1954 EXAM PERTUSSIS VACCINE 1958 TETANUS VACCINE 01/22/1964 COLORECTAL CANCER 1997 SCREENING SHINGLES VACCINE 2007 ABDOMINAL AORTIC ANEURYSM 01/22/2012 SCREENING PREVNAR/PNEUMOVAX (#1) 01/22/2012 INFLUENZA VACCINE 03/25/2018 Results Not on filefrom Last 3 Months
--- OUTSIDE RECORDS SUMMARY | 2017-09-02 04:01 | XMS REPORT | Continuity of Care Document ---
Author Author [facility] Organization [facility] Address Unknown Phone Unavailable Allergies Active Description Code Type Severity Reaction Onset Reported/Identified Relationship to Patient Clinical Status Yes No Known Drug Allergies [id number] Drug Allergy Unknown N/A 10/29/2014 Medications There [...] MORRIS Chavez Ot 414.01 CORONARY ATHEROSCLEROSIS OF [place] CORON 01/03/2015 RUDDY MURO, MORRIS Chavez Ot [...] 07/26/2015 Ot V57.89 07/26/2015 Ot V58.73 07/26/2015 [place] DO, LORE D Ot 571.8 07/26/2015 OLSON [...] FACP CCDS Ot J43.8 08/23/2015 VICENTE MURO [facility] CCDS Ot R07.89 [...] FACP CCDS Ot R07.89 09/16/2015 RACHELLE DEVLIN MANHOLE STRIPPER Ot R06.00 09/28/2015 MORRIS FOX MD Ot E11.9 09/28/2015 Ot J44.9 10/13/2015 CODY WAGGONER MD Ot D75.1 SECONDARY POLYCYTHEMIA 10/13/2015 CODY WAGGONER MD Ot I10 ESSENTIAL (PRIMARY) HYPERTENSION 10/13/2015 CODY WAGGONER MD Ot J44.9 CHRONIC OBSTRUCTIVE PULMONARY DISEASE, U 10/13/2015 CODY WAGGONER MD Ot Z79.899 OTHER SUPERVISOR ELECTRON TUBE PROCESSING (CURRENT) DRUG THERAPY 10/14/2015 CODY WAGGONER MD Ot D75.1 SECONDARY POLYCYTHEMIA 10/14/2015 CODY WAGGONER MD Ot I10 ESSENTIAL (PRIMARY) HYPERTENSION 10/14/2015 CODY WAGGONER MD Ot J44.9 CHRONIC OBSTRUCTIVE PULMONARY DISEASE, U 10/14/2015 CODY WAGGONER MD Ot Z79.899 OTHER SUPERVISOR ELECTRON TUBE PROCESSING (CURRENT) DRUG THERAPY 10/24/2015 RACHELLE DEVLIN MANHOLE STRIPPER Ot R06.00 DYSPNEA, UNSPECIFIED 10/28/2015 MORRIS FOX MD Ot E11.9 TYPE 2 DIABETES MELLITUS WITHOUT COMPLIC 10/31/2015 RACHELLE DEVLIN MANHOLE STRIPPER Ot R06.00 DYSPNEA, UNSPECIFIED 11/25/2015 CODY WAGGONER MD Ot D75.1 SECONDARY POLYCYTHEMIA 11/25/2015 CODY WAGGONER MD Ot I10 ESSENTIAL (PRIMARY) HYPERTENSION 11/25/2015 CODY WAGGONER MD Ot J44.9 CHRONIC OBSTRUCTIVE PULMONARY DISEASE, U 11/25/2015 CODY WAGGONER MD Ot Z79.899 OTHER SUPERVISOR ELECTRON TUBE PROCESSING (CURRENT) DRUG THERAPY 12/02/2015 MORRIS FOX MD [...] 12/06/2015 CODY WAGGONER MD Ot Z79.899 OTHER SUPERVISOR ELECTRON TUBE PROCESSING (CURRENT) DRUG THERAPY 02/29/2016 CODY WAGGONER MD Ot D75.1 SECONDARY POLYCYTHEMIA 02/29/2016 CODY WAGGONER MD Ot I10 ESSENTIAL (PRIMARY) HYPERTENSION 02/29/2016 CODY WAGGONER MD Ot J44.9 CHRONIC OBSTRUCTIVE PULMONARY DISEASE, U 02/29/2016 CODY WAGGONER MD Ot Z79.899 OTHER JAIL (CURRENT) DRUG THERAPY 09/19/2016 PILO LOGAN MD [...] EXAMINATION 09/19/2016 LORE OLSON DO Ot V72.81 [id number]-CFSAOGIYR CARDIOVASCULAR 09/19/2016 LORE OLSON DO Ot V74.8 SCREEN-BACTERIAL DIS NEC 09/19/2016 CONCETTA SNELL DO Ot 496 CHR AIRWAY OBSTRUCT NEC 09/19/2016 CONCETTA SNELL DO Ot 786.09 RESPIRATORY ABNORM NEC 09/19/2016 Ot J44.9 CHRONIC OBSTRUCTIVE PULMONARY DISEASE, U 09/19/2016 VICENTE MURO FAC, ALI FACP CCDS Ot I25.10 ATHSCL HEART DISEASE OF [place] CORONARY 09/19/2016 VICENTE MURO FAC, ALI FACP [...] PULMONARY DISEASE, U 09/19/2016 Ot Z79.899 OTHER JAIL (CURRENT) DRUG THERAPY 10/02/2016 DESMOND MURO, PILO [...] POST SURGERY CIRULATORY SYSTEM 10/02/2016 SEYMOUR LOOMIS MANHOLE STRIPPER Ot J48.0 10/02/2016 DESMOND MURO, PILO R [...] EXAMINATION 10/02/2016 LORE OLSON DO Ot V72.81 [id number] CARDIOVASCULAR 10/02/2016 LORE OLSON DO Ot V74.8 SCREEN-BACTERIAL DIS NEC 10/02/2016 CONCETTA SNELL DO Ot 496 CHR AIRWAY OBSTRUCT NEC 10/02/2016 CONCETAT SNELL DO Ot 786.09 RESPIRATORY ABNORM NEC 10/02/2016 Ot J44.9 CHRONIC OBSTRUCTIVE PULMONARY DISEASE, U 10/02/2016 VICENTE MURO FACC, ALI FACP CCDS Ot I25.10 ATHSCL HEART DISEASE OF [place] CORONARY 10/02/2016 VICENTE MURO FACC, ALI FACP CCDS Ot J43.8 OTHER EMPHYSEMA 10/02/2016 VICENTE MURO FACC, ALI FACP CCDS Ot R07.89 OTHER CHEST PAIN 10/02/2016 SEYMOUR LOOMIS APRN Ot J48.0 10/02/2016 RACHELLE DEVLIN MANHOLE STRIPPER Ot R06.00 DYSPNEA, UNSPECIFIED 10/02/2016 RUDDY MURO, [...] PULMONARY DISEASE, U 10/02/2016 Ot Z79.899 OTHER JAIL (CURRENT) DRUG THERAPY 10/02/2016 BERNADETTE PEREYRA OCCASIONAL CAREGIVER Ot I10 ESSENTIAL (PRIMARY) HYPERTENSION 10/02/2016 BERNADETTE PEREYRA L OCCASIONAL CAREGIVER Ot I25.10 ATHSCL HEART DISEASE OF [place] CORONARY 10/02/2016 BERNADETTE PEREYRA L OCCASIONAL CAREGIVER Ot I65.23 OCCLUSION AND STENOSIS OF [place]AL [place] 10/02/2016 BERNADETTE PEREYRA L OCCASIONAL CAREGIVER Ot R06.02 SHORTNESS OF BREATH 10/02/2016 BERNADETTE PEREYRA L OCCASIONAL CAREGIVER Ot R07.89 OTHER CHEST PAIN 10/02/2016 SEYMOUR [...] MD Ot I25.110 ATHSCL HEART DISEASE OF [place] COR ART W 10/03/2016 Jeannette MORRIS MD, Ot J44.9 CHRONIC OBSTRUCTIVE PULMONARY DISEASE, U 10/03/2016 Jeannette MORRIS MD Ot T82.855A STENOSIS OF CORONARY ARTERY STENT, INITI 10/03/2016 Jeannette MORRIS MD Ot Z79.899 OTHER JAIL (CURRENT) DRUG THERAPY 10/03/2016 Jeannette MORRIS MD [...] MD Ot I25.110 ATHSCL HEART DISEASE OF [place] COR ART W 10/06/2016 Jeannette MORRIS MD, [...] NOT ELSEWHERE C 11/15/2016 BERNADETTE PEREYRA L OCCASIONAL CAREGIVER Ot I10 ESSENTIAL (PRIMARY) HYPERTENSION 11/15/2016 BERNADETTE PEREYRA L OCCASIONAL CAREGIVER Ot I25.10 ATHSCL HEART DISEASE OF [place] CORONARY 11/15/2016 BERNADETTE PEREYRA OCCASIONAL CAREGIVER Ot I65.23 OCCLUSION AND STENOSIS OF [place] 11/15/2016 BERNADETTE PEREYRA L OCCASIONAL CAREGIVER Ot R06.02 SHORTNESS OF BREATH 11/15/2016 BERNADETTE PEREYRA OCCASIONAL CAREGIVER Ot R07.89 OTHER CHEST PAIN 11/15/2016 BERNADETTE PEREYRA L OCCASIONAL CAREGIVER Ot I10 ESSENTIAL (PRIMARY) HYPERTENSION 11/15/2016 BERNADETTE PEREYRA OCCASIONAL CAREGIVER Ot I25.10 ATHSCL HEART DISEASE OF [place] CORONARY 11/15/2016 BERNADETTE PEREYRA OCCASIONAL CAREGIVER Ot I65.23 OCCLUSION AND STENOSIS OF [place] 11/15/2016 BERNADETTE PEREYRA OCCASIONAL CAREGIVER Ot R06.02 SHORTNESS OF BREATH 11/15/2016 BERNADETTE PEREYRA OCCASIONAL CAREGIVER Ot R07.89 OTHER CHEST PAIN 11/30/2016 SEYMOUR LOOMIS MANHOLE STRIPPER Ot J43.9 EMPHYSEMA, UNSPECIFIED 01/01/2017 SEYMOUR LOOMIS MANHOLE STRIPPER Ot J43.9 EMPHYSEMA, UNSPECIFIED 01/03/2017 SEYMOUR LOOMIS MANHOLE STRIPPER Ot J43.9 EMPHYSEMA, UNSPECIFIED 04/19/2017 VICENTE MURO FACC, DELORES FACP CCDS Ot 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 04/19/2017 VICENTE MURO FACC, DELORES FACP CCDS Ot E29.1 TESTICULAR HYPOFUNCTION 04/19/2017 VICENTE MURO FACC, ALI FACP CCDS Ot E66.9 OBESITY, UNSPECIFIED 04/19/2017 VICENTE MURO FACC, ALI FACP CCDS Ot I10 ESSENTIAL (PRIMARY) HYPERTENSION 04/19/2017 VICENTE MURO FACC, DELORES FACP CCDS Ot I25.110 ATHSCL HEART DISEASE OF [place] COR ART W 04/19/2017 VICENTE MURO FACC, [...] IN RIGHT LOWER LEG 05/02/2017 RACHELLE DEVLIN MANHOLE STRIPPER Ot R22.41 LOCALIZED SWELLING, MASS AND LUMP, [...] CCDS Ot I25.110 ATHSCL HEART DISEASE OF [place] COR ART W 05/09/2017 VICENTE MURO FACC, [...] CCDS Ot I25.110 ATHSCL HEART DISEASE OF [place] COR ART W 05/11/2017 VICENTE MURO FACC, [...] STENOSIS OF CORONARY ARTERY STENT, INITI 05/11/2017 VIECNTE MURO FACC ALI FACP CCDS Ot Z23 [...] CCDS Ot I25.110 ATHSCL HEART DISEASE OF [place] COR ART W 05/14/2017 VICENTE MURO FACC, ALI FACP CCDS Ot I65.23 OCCLUSION AND STENOSIS OF [place] 05/14/2017 VICENTE MURO FACC, ALI FACP CCDS Ot J43.9 EMPHYSEMA, UNSPECIFIED 05/14/2017 VICENTE MURO FACC, ALI FACP CCDS Ot K21.9 GASTRO-ESOPHAGEAL REFLUX DISEASE WITHOUT 05/14/2017 VICENET MURO FACC, ALI FACP CCDS Ot N52.9 [...] R22.41 LOCALIZED SWELLING, MASS AND LUMP, RIGHT 08/07/2017 Jeannette MORRIS MD Ot E03.9 HYPOTHYROIDISM, UNSPECIFIED 08/07/2017 Jeannette MORRIS MD Ot E11.9 TYPE 2 DIABETES MELLITUS WITHOUT COMPLIC 08/07/2017 Jeannette MORRIS MD Ot E78.00 PURE HYPERCHOLESTEROLEMIA, UNSPECIFIED 08/07/2017 Jeannette MORRIS MD, Ot E87.1 HYPO-OSMOLALITY AND HYPONATREMIA 08/07/2017 Jeannette MORRIS MD Ot H91.90 UNSPECIFIED HEARING LOSS, UNSPECIFIED EA 08/07/2017 Jeannette MORRIS MD Ot I10 ESSENTIAL (PRIMARY) HYPERTENSION 08/07/2017 Jeannette MORRIS MD, Ot I25.10 ATHSCL HEART DISEASE OF [place] CORONARY 08/07/2017 Jeannette MORRIS MD Ot J43.9 EMPHYSEMA, UNSPECIFIED 08/07/2017 Jeannette MORRIS MD Ot K21.9 GASTRO-ESOPHAGEAL REFLUX DISEASE WITHOUT 08/07/2017 Jeannette MORRIS MD Ot K59.09 OTHER CONSTIPATION 08/07/2017 Jeannette MORRIS MD Ot M19.91 PRIMARY OSTEOARTHRITIS, UNSPECIFIED SITE 08/07/2017 Jeannette MORRIS MD Ot M54.9 DORSALGIA, UNSPECIFIED 08/07/2017 Jeannette MORRIS MD, Ot R07.9 CHEST PAIN, UNSPECIFIED 08/07/2017 Jeannette MORRIS MD Ot Z79.84 JAIL (CURRENT) USE OF ORAL HYPOGLYC 08/07/2017 Jeannette MORRIS MD Ot Z87.891 PERSONAL HISTORY OF NICOTINE DEPENDENCE 08/07/2017 Jeannette MORRIS MD Ot Z95.5 PRESENCE OF CORONARY ANGIOPLASTY IMPLANT 08/08/2017 Jeannette MORRIS MD Ot E03.9 HYPOTHYROIDISM, UNSPECIFIED 08/08/2017 Jeannette MORRIS MD Ot E11.9 TYPE 2 DIABETES MELLITUS WITHOUT COMPLIC 08/08/2017 Jeannette MORRIS MD Ot E78.00 PURE HYPERCHOLESTEROLEMIA, UNSPECIFIED 08/08/2017 Jeannette MORRIS MD Ot E87.1 HYPO-OSMOLALITY AND HYPONATREMIA 08/08/2017 Jeannette MORRIS MD Ot H91.90 UNSPECIFIED HEARING LOSS, UNSPECIFIED EA 08/08/2017 Jeannette MORRIS MD Ot I10 ESSENTIAL (PRIMARY) HYPERTENSION 08/08/2017 Jeannette MORRIS MD Ot I25.10 ATHSCL HEART DISEASE OF [place] CORONARY 08/08/2017 Jeannette MORRIS MD Ot J43.9 EMPHYSEMA, UNSPECIFIED 08/08/2017 Jeannette MORRIS MD Ot K21.9 GASTRO-ESOPHAGEAL REFLUX DISEASE WITHOUT 08/08/2017 Jeannette MORRIS MD Ot K59.09 OTHER CONSTIPATION 08/08/2017 Jeannette MORRIS MD Ot M19.91 PRIMARY OSTEOARTHRITIS, UNSPECIFIED SITE 08/08/2017 Jeannette MORRIS MD Ot M54.9 DORSALGIA, UNSPECIFIED 08/08/2017 Jeannette MORRIS MD Ot R07.9 CHEST PAIN, UNSPECIFIED 08/08/2017 Jeannette MORRIS MD Ot Z79.84 JAIL (CURRENT) USE OF ORAL HYPOGLYC 08/08/2017 Jeannette MORRIS MD Ot Z87.891 PERSONAL HISTORY OF NICOTINE DEPENDENCE 08/08/2017 Jeannette MORRIS MD Ot Z95.5 PRESENCE OF CORONARY ANGIOPLASTY IMPLANT 08/08/2017 Jeannette MORRIS MD Ot E03.9 HYPOTHYROIDISM, UNSPECIFIED 08/08/2017 Jeannette MORRIS MD Ot E11.9 TYPE 2 DIABETES MELLITUS WITHOUT COMPLIC 08/08/2017 Jeannette MORRIS MD Ot E78.00 PURE HYPERCHOLESTEROLEMIA, UNSPECIFIED 08/08/2017 Jeannette MORRIS MD Ot E87.1 HYPO-OSMOLALITY AND HYPONATREMIA 08/08/2017 Jeannette MORRIS MD Ot H91.90 UNSPECIFIED HEARING LOSS, UNSPECIFIED EA 08/08/2017 Jeannette MORRIS MD Ot I10 ESSENTIAL (PRIMARY) HYPERTENSION 08/08/2017 Jeannette MORRIS MD Ot I25.10 ATHSCL HEART DISEASE OF [place] CORONARY 08/08/2017 Jeannette MORRIS MD Ot I25.110 ATHSCL HEART DISEASE OF [place] COR ART W 08/08/2017 Jeannette MORRIS MD, Ot J43.9 EMPHYSEMA, UNSPECIFIED 08/08/2017 Jeannette MORRIS MD, Ot K21.9 GASTRO-ESOPHAGEAL REFLUX DISEASE WITHOUT 08/08/2017 Jeannette MORRIS MD, Ot K59.09 OTHER CONSTIPATION 08/08/2017 Jeannette MORRIS MD, Ot M19.91 PRIMARY OSTEOARTHRITIS, UNSPECIFIED SITE 08/08/2017 Jeannette MORRIS MD, Ot M54.9 DORSALGIA, UNSPECIFIED 08/08/2017 Jeannette MORRIS MD, Ot R07.9 CHEST PAIN, UNSPECIFIED 08/08/2017 Jeannette MORRIS MD, Ot T82.855A STENOSIS OF CORONARY ARTERY STENT, INITI 08/08/2017 Jeannette MORRIS MD, Ot Z79.84 JAIL (CURRENT) USE OF ORAL HYPOGLYC 08/08/2017 Jeannette MORRIS MD, Ot Z87.891 PERSONAL HISTORY OF NICOTINE DEPENDENCE 08/08/2017 Jeannette MORRIS MD, Ot Z95.5 PRESENCE OF CORONARY ANGIOPLASTY IMPLANT Procedures Code Description Performed By Performed On [id number] DILATION OF CORONARY ARTERY, ONE ARTERY, 10/03/2016 [id number] MEASURE OF CARDIAC SAMPL PRESSURE, L H 10/03/2016 [id number] FLUOROSCOPY OF MULT COR ART USING L OSM 10/03/2016 [id number] FLUOROSCOPY OF LEFT HEART USING LOW OSMO [...] automated white blood cell (WBC) differential - 08/06/17 12:22 Blood leukocytes automated count (number/volume) 5.9 10*3/uL 4.3-11.0 Blood erythrocytes automated count (number/volume) 5.03 10*6/uL 4.35-5.85 Venous blood hemoglobin measurement (mass/volume) 16.5 g/dL 13.3-17.7 Blood hematocrit (volume fraction) 44 % 40-54 Automated erythrocyte mean corpuscular volume 88 [foz_us] 80-99 Automated erythrocyte mean corpuscular hemoglobin (mass per erythrocyte) 33 pg 25-34 Automated erythrocyte mean corpuscular hemoglobin concentration measurement ( mass/volume) 37 g/dL 32-36 Automated erythrocyte distribution width ratio 12.1 % 10.0-14.5 Automated blood platelet count (count/volume) 215 10*3/uL 130-400 Automated blood platelet mean volume measurement 9.1 [foz_us] 7.4-10.4 Automated blood neutrophils/100 leukocytes 56 % 42-75 Automated blood lymphocytes/100 leukocytes 23 % 12-44 Blood monocytes/100 leukocytes 18 % 0-12 Automated blood eosinophils/100 leukocytes 2 % 0-10 Automated blood basophils/100 leukocytes 1 % 0-10 Blood neutrophils automated count (number/volume) 3.3 10*3 1.8-7.8 Blood lymphocytes automated count (number/volume) 1.3 10*3 1.0-4.0 Blood monocytes automated count (number/volume) 1.1 10*3 0.0-1.0 Automated eosinophil count 0.1 10*3/uL 0.0-0.3 Automated blood basophil count (count/volume) 0.1 10*3/uL 0.0-0.1 Comprehensive metabolic panel - 08/06/17 12:22 Serum or plasma sodium measurement (moles/volume) 125 mmol/L 135-145 Serum or plasma potassium measurement (moles/volume) 3.8 mmol/L 3.6-5.0 Serum or plasma chloride measurement (moles/volume) 93 mmol/L 98-107 Carbon dioxide 22 mmol/L 21-32 Serum or plasma anion gap determination (moles/volume) 10 mmol/L 5-14 Serum or plasma urea nitrogen measurement (mass/volume) 14 mg/dL 7-18 Serum or plasma creatinine measurement (mass/volume) 0.91 mg/dL 0.60-1.30 Serum or plasma urea nitrogen/creatinine mass ratio 15 NRG Serum or plasma creatinine measurement with calculation of estimated glomerular filtration rate > NRG Serum or plasma glucose measurement (mass/volume) 112 mg/dL 70-105 Serum or plasma calcium measurement (mass/volume) 9.1 mg/dL 8.5-10.1 Serum or plasma total bilirubin measurement (mass/volume) 1.2 mg/dL 0.1-1.0 Serum or plasma alkaline phosphatase measurement (enzymatic activity/volume) 61 U/L 40-136 Serum or plasma aspartate aminotransferase measurement (enzymatic activity/ volume) 59 U/L 5-34 Serum or plasma alanine aminotransferase measurement (enzymatic activity/volume ) 49 U/L 0-55 Serum or plasma protein measurement (mass/volume) 7.4 g/dL 6.4-8.2 Serum or plasma albumin measurement (mass/volume) 4.4 g/dL 3.2-4.5 Lipid 1996 panel - 08/06/17 12:22 Serum or plasma triglyceride measurement (mass/volume) 102 mg/dL <150 Serum or plasma cholesterol measurement (mass/volume) 119 mg/dL < 200 Serum or plasma cholesterol in HDL measurement (mass/volume) 37 mg/ dL 40-60 Cholesterol in LDL [mass/volume] in serum or plasma by direct assay 66 mg/dL 1-129 Serum or plasma cholesterol in VLDL measurement (mass/volume) 20 mg/ dL 5-40 Blood manual differential performed detection - 08/06/17 12:22 Blood monocytes/100 leukocytes 13 % NRG Manual blood segmented neutrophils/100 leukocytes 56 % NRG Manual blood lymphocytes/100 leukocytes 19 % NRG Manual eosinophils/100 leukocytes in nose 2 % NRG Manual blood basophils/100 leukocytes 2 % NRG Blood lymphocytes variant/100 leukocytes 8 % NRG Blood erythrocyte morphology finding identification NORMAL NRG Serum or plasma lithium measurement (moles/volume) - 08/06/17 12:22 BNP level < pg/mL <100.0 Serum or plasma troponin i.cardiac measurement (mass/volume) - 08/06/17 12:22 Serum or plasma troponin i.cardiac measurement (mass/volume) < ng/ mL <0.30 Serum or plasma troponin i.cardiac measurement (mass/volume) - 08/06/17 18:20 Serum or plasma troponin i.cardiac measurement (mass/volume) < ng/ mL <0.30 Serum or plasma troponin i.cardiac measurement (mass/volume) - 08/07/17 00:50 Serum or plasma troponin i.cardiac measurement (mass/volume) < ng/ mL <0.30 Comprehensive metabolic panel - 08/07/17 03:10 Serum or plasma sodium measurement (moles/volume) 130 mmol/L 135-145 Serum or plasma potassium measurement (moles/volume) 3.9 mmol/L 3.6-5.0 Serum or plasma chloride measurement (moles/volume) 96 mmol/L 98-107 Carbon dioxide 22 mmol/L 21-32 Serum or plasma anion gap determination (moles/volume) 12 mmol/L 5-14 Serum or plasma urea nitrogen measurement (mass/volume) 15 mg/dL 7-18 Serum or plasma creatinine measurement (mass/volume) 0.93 mg/dL 0.60-1.30 Serum or plasma urea nitrogen/creatinine mass ratio 16 NRG Serum or plasma creatinine measurement with calculation of estimated glomerular filtration rate > NRG Serum or plasma glucose measurement (mass/volume) 126 mg/dL 70-105 Serum or plasma calcium measurement (mass/volume) 8.7 mg/dL 8.5-10.1 Serum or plasma total bilirubin measurement (mass/volume) 0.8 mg/dL 0.1-1.0 Serum or plasma alkaline phosphatase measurement (enzymatic activity/volume) 58 U/L 40-136 Serum or plasma aspartate aminotransferase measurement (enzymatic activity/ volume) 45 U/L 5-34 Serum or plasma alanine aminotransferase measurement (enzymatic activity/volume ) 42 U/L 0-55 Serum or plasma protein measurement (mass/volume) 6.7 g/dL 6.4-8.2 Serum or plasma albumin measurement (mass/volume) 3.9 g/dL 3.2-4.5 Magnesium - 08/07/17 03:10 Magnesium 1.9 mg/dL 1.8-2.4 Complete blood count (CBC) with automated white blood cell (WBC) differential - 08/07/17 03:10 Blood leukocytes automated count (number/volume) 6.2 10*3/uL 4.3-11.0 Blood erythrocytes automated count (number/volume) 4.89 10*6/uL 4.35-5.85 Venous blood hemoglobin measurement (mass/volume) 15.9 g/dL 13.3-17.7 Blood hematocrit (volume fraction) 43 % 40-54 Automated erythrocyte mean corpuscular volume 88 [foz_us] 80-99 Automated erythrocyte mean corpuscular hemoglobin (mass per erythrocyte) 33 pg 25-34 Automated erythrocyte mean corpuscular hemoglobin concentration measurement ( mass/volume) 37 g/dL 32-36 Automated erythrocyte distribution width ratio 12.3 % 10.0-14.5 Automated blood platelet count (count/volume) 215 10*3/uL 130-400 Automated blood platelet mean volume measurement 9.2 [foz_us] 7.4-10.4 Automated blood neutrophils/100 leukocytes 54 % 42-75 Automated blood lymphocytes/100 leukocytes 28 % 12-44 Blood monocytes/100 leukocytes 15 % 0-12 Automated blood eosinophils/100 leukocytes 2 % 0-10 Automated blood basophils/100 leukocytes 1 % 0-10 Blood neutrophils automated count (number/volume) 3.3 10*3 1.8-7.8 Blood lymphocytes automated count (number/volume) 1.7 10*3 1.0-4.0 Blood monocytes automated count (number/volume) 0.9 10*3 0.0-1.0 Automated eosinophil count 0.2 10*3/uL 0.0-0.3 Automated blood basophil count (count/volume) 0.1 10*3/uL 0.0-0.1 Whole blood basic metabolic panel - 08/08/17 03:20 Serum or plasma sodium measurement (moles/volume) 131 mmol/L 135-145 Serum or plasma potassium measurement (moles/volume) 4.0 mmol/L 3.6-5.0 Serum or plasma chloride measurement (moles/volume) 98 mmol/L 98-107 Carbon dioxide 23 mmol/L 21-32 Serum or plasma anion gap determination (moles/volume) 10 mmol/L 5-14 Serum or plasma urea nitrogen measurement (mass/volume) 13 mg/dL 7-18 Serum or plasma creatinine measurement (mass/volume) 0.97 mg/dL 0.60-1.30 Serum or plasma urea nitrogen/creatinine mass ratio 13 NRG Serum or plasma creatinine measurement with calculation of estimated glomerular filtration rate > NRG Serum or plasma glucose measurement (mass/volume) 103 mg/dL 70-105 Serum or plasma calcium measurement (mass/volume) 8.8 mg/dL 8.5-10.1 Capillary blood glucose measurement by glucometer (mass/volume) - 08/08/17 08: 47 Capillary blood glucose measurement by glucometer (mass/volume) 124 mg/dL 70-110 Encounters ACCT No. Visit Date/Time Discharge Status Pt. Type Provider Facility Loc./Unit Complaint [id number] 08/06/2017 11:25:00 08/08/2017 10:35:00 DIS Outpatient Jeannette MORRIS MD [facility] ICU CHEST PAIN [id number] 04/30/2017 16:19:00 04/30/2017 23:59:59 CLS Outpatient RACHELLE DEVLIN APRN [facility] RAD RT LEG SWELLING [id number] 04/18/2017 13:15:00 04/19/2017 09:00:00 DIS Outpatient VICENTE MURO FACCDELORES FACP CCDS [facility] CATH CAD,COPD, CHEST DISCOMFORT [id number] 10/02/2016 14:40:00 10/03/2016 20:50:00 DIS Outpatient Jeannette MORRIS MD [facility] CATH CHEST PAIN [id number] 10/02/2016 10:09:00 10/02/2016 23:59:59 CLS Outpatient LORE OLSON DO [facility] RAD ABD PAIN [id number] 10/02/2016 10:03:00 10/02/2016 23:59:59 CLS Outpatient SEYMOUR LOOMIS APRN [facility] RAD LUNG NODULE SEEN ON IMAGING [id number] 09/19/2016 11:09:00 09/19/2016 23:59:59 CLS Outpatient BERNADETTE PEREYRA [facility] CARD CHEST PAIN,CAD [id number] 12/01/2015 10:53:00 12/01/2015 23:59:59 CLS Outpatient MORRIS FOX MD [facility] LAB [id number] 12/01/2015 10:50:00 12/01/2015 23:59:59 CLS Outpatient CODY WAGGONER MD [facility] ONC [id number] 10/29/2015 13:00:00 10/29/2015 23:59:59 CLS Preadmit MORRIS FOX MD [facility] DSME DIABETES TYPE 2 [id number] 07/30/2015 13:22:00 10/28/2015 00:01:00 [facility] [id number] 10/25/2015 08:15:00 10/25/2015 23:59:59 CLS Preadmit RACHELLE DEVLIN APRN [facility] PULM DYSPNEA [id number] 07/26/2015 08:17:00 10/24/2015 00:01:00 DIS Outpatient RACHELLE DEVLIN APRN [facility] PULM DYSPNEA [id number] 09/02/2015 13:34:00 10/13/2015 00:01:00 DIS Outpatient CODY WAGGONER MD [facility] ONC [id number] 08/10/2015 08:09:00 08/10/2015 23:59:59 CLS Outpatient VICENTE MURO FACC, DELORES REIS CCDS [facility] CARD CHEST DISCOMFORT, SOB [id number] 04/25/2015 20:11:00 04/26/2015 05:30:00 DIS Outpatient CONCETTA SNELL DO [facility] SLEEP SNORING HTN EXCESSIVE DAYTIME SLEEPINESS [id number] 03/03/2015 14:23:00 03/03/2015 23:59:59 CLS Outpatient CONCETTA SNELL DO [facility] RAD COPD DYSPNEA [id number] 01/01/2015 22:45:00 01/03/2015 10:35:00 DIS Inpatient MORRIS FOX MD [facility] 4TH CELLULITIS L FOOT [id number] 11/19/2014 07:30:00 11/19/2014 14:00:00 DIS Outpatient LORE OLSON DO [facility] SDC UMBILICAL HERNIA; SEBECEOUS CYSTS X 3 [id number] 11/17/2014 12:07:00 11/17/2014 23:59:59 CLS Outpatient LORE OLSON DO [facility] PREOP UMBILICAL HERNIA; SEBACEOUS CYST X3 [id number] 10/29/2014 10:00:00 10/29/2014 23:59:59 CLS Outpatient LORE OLSON DO [facility] CARD RUQ PAIN [id number] 10/02/2014 08:37:00 10/02/2014 23:59:59 CLS Outpatient LORE OLSON DO [facility] RAD RUQ PAIN [id number] 02/20/2014 09:13:00 04/05/2014 00:01:00 DIS Outpatient PILO LOGAN MD [facility] CR STENT/PTCA [id number] 01/19/2014 08:10:00 01/19/2014 23:59:59 CLS Outpatient JD CRESPO MD [facility] RT HEADACHE,CONFUSION, DIZZINESS [id number] 01/14/2014 10:25:00 01/14/2014 23:59:59 CLS Outpatient JD CRESPO MD [facility] LAB HAS CONFUSION [id number] 11/28/2013 09:38:00 11/28/2013 23:59:59 CLS Outpatient PILO LOGAN MD [facility] LAB CORONARY ATHEROSCLEROSIS [id number] 03/01/2016 00:00:00 Document Registration [id number] 09/24/2015 12:29:00 Document Registration [id number] 04/06/2014 09:00:00 Document Registration
== END 2017-08-31 11:50 | disposition home or self-care (01) ==
LOC: SDC 08:21
PROVIDERS: ATTEND Surgery
DX: D12.2 Benign neoplasm of ascending colon (principal); K62.1 Rectal polyp; K29.70 Gastritis, unspecified, without bleeding; K21.9 Gastro-esophageal reflux disease without esophagitis; K44.9 Diaphragmatic hernia without obstruction or gangrene; E11.9 Type 2 diabetes mellitus without complications; J43.9 Emphysema, unspecified; I25.10 Atherosclerotic heart disease of native coronary artery without angina pectoris; E66.9 Obesity, unspecified; Z68.31 Body mass index [BMI] 31.0-31.9, adult; Z79.82 Long term (current) use of aspirin; Z79.899 Other long term (current) drug therapy; Z87.891 Personal history of nicotine dependence; Z95.5 Presence of coronary angioplasty implant and graft
CPT/HCPCS: 82962

== ENCOUNTER → 2017-09-10 | Outpatient (CLI) | payer MEDICARE, OTHER ==
--- NOTE | 2017-09-10 08:59 | Diagnostic Imaging Report ---
PROCEDURE: US Gallbladder. TECHNIQUE: Multiple real-time grayscale images were obtained over the right upper quadrant in various projections. INDICATION: Epigastric pain of five years duration. Hepatic echotexture is elevated consistent with likely moderate degree of fatty infiltration. The gallbladder appeared normal. No luminal stones sludge or wall thickening. Means's sign negative and there is no pericholecystic fluid. The extrahepatic bile duct as well as much of the pancreas obscured by gas. There is no intrahepatic bile duct dilatation. The unobstructed right kidney is normal in size, cortical thickness and echotexture. No hydronephrosis. IMPRESSION: Echodense fatty liver. No biliary abnormality identified. No ascites, negative right kidney. Dictated by: Dictated on workstation # [id number]
== END ==
LOC: RAD 08:02
PROVIDERS: ATTEND Internal Medicine Cardiovascular Disease
DX: K76.0 Fatty (change of) liver, not elsewhere classified (principal); I25.10 Atherosclerotic heart disease of native coronary artery without angina pectoris; J44.9 Chronic obstructive pulmonary disease, unspecified; E11.9 Type 2 diabetes mellitus without complications; I10 Essential (primary) hypertension; I65.23 Occlusion and stenosis of bilateral carotid arteries; K21.9 Gastro-esophageal reflux disease without esophagitis; K44.9 Diaphragmatic hernia without obstruction or gangrene; F17.201 Nicotine dependence, unspecified, in remission
CPT/HCPCS: 76705

== ENCOUNTER → 2017-09-28 | Outpatient (CLI) | payer MEDICARE ==
[~2017-09-28] MED LIST changes: +CATHETER FLUSH 10 ML SYR IV PRN
--- NOTE | 2017-09-28 13:34 | Diagnostic Imaging Report ---
Indication: Abdominal pain. Findings: After intravenous administration of 5.5 mCi technetium 99m Choletec, hepatobiliary imaging is performed. There is normal distribution of activity throughout the liver on initial images with prompt appearance of activity in the biliary tree and gallbladder. Activity passes into the small bowel. The patient then ingested a fatty meal and gallbladder ejection fraction is calculated to be 56%. Greater than 50% is considered normal. Impression: Normal hepatobiliary scan. Dictated by: Dictated on workstation # [id number]
== END ==
LOC: CARD 10:04
PROVIDERS: ATTEND Surgery
DX: R10.84 Generalized abdominal pain (principal)
CPT/HCPCS: 78227

== ENCOUNTER → 2017-11-07 | Outpatient (CLI) | payer MEDICARE ==
[~2017-11-07] MED LIST changes: -CATHETER FLUSH 10 ML SYR IV PRN
--- NOTE | 2017-11-07 12:06 | Diagnostic Imaging Report ---
PROCEDURE: CT chest without contrast. TECHNIQUE: Multiple contiguous axial images were obtained through the chest without the use of intravenous contrast. INDICATION: Pulmonary nodules, followup. COMPARISON: Comparison is made with prior CT chest from 10/02/2016. FINDINGS: Overall image quality is significantly compromised due to low dose protocol being utilized. This significantly limits evaluation of the mediastinum. There appear to be prominent lymph nodes in the mediastinum, AP window and prevascular space as well as paratracheal location, indeterminate. No axillary lymphadenopathy is seen. No definite pericardial or pleural fluid is identified. There are coronary arterial calcifications detected. Pleural-parenchymal scarring in the apices bilaterally is again noted. A tiny nodule along the lateral aspect of the right apex appears stable at 4 mm. The nodule adjacent to the major fissure on the right also appears stable at 3-4 mm. There appear to be centrilobular emphysematous changes throughout both lungs. No new mass is seen. IMPRESSION: 1. Stable right-sided pulmonary nodules when compared with examination from one year earlier. 2. Limited study with low-dose protocol. There does appear to be some prominent lymph nodes in the mediastinum, similar to the examination one day earlier and indeterminate. Continued followup with conventional CT chest with contrast would be recommended in 6-12 months. Dictated by: Dictated on workstation # [id number]
== END ==
LOC: RAD 10:09
PROVIDERS: ATTEND Nurse Practitioner Family
DX: R91.8 Other nonspecific abnormal finding of lung field (principal)
CPT/HCPCS: 71250

== ENCOUNTER 2018-08-13 08:02 | Day surgery (SDC) | payer MEDICARE ==
[~2018-08-13] VITALS: Ht 182.9 cm; Wt 105.7 kg
[2018-08-13] VITALS (10 sets, daily range): BP systolic 123–149; BP diastolic 62–94
[2018-08-13] MEDS ORDERED: HEParin (CATH LAB) 2,000 ML IV ONE (08:08)
[2018-08-13] MEDS ORDERED: LIDOCAINE 1% INJ 20 ML 20 ML VIAL ONE (08:08)
[2018-08-13] MEDS ORDERED: NS IV 1000 ML 1,000 ML ONE (08:08)
[2018-08-13 08:43] LABS: HEMOGLOBIN 16.6 G/DL (13.3-17.7); MEAN PLATELET VOLUME 9.4 FL (7.4-10.4); WHITE BLOOD COUNT 6.9 10^3/uL (4.3-11.0)
[2018-08-13 09:00] LABS: PROTHROMBIN TIME PATIENT 13.5 SEC (12.2-14.7)
[2018-08-13 09:04] LABS: ALANINE AMINOTRANSFERASE 46 U/L (0-55); ALBUMIN 4.6 GM/DL (3.2-4.5); ALKALINE PHOSPHATASE 62 U/L (40-136); BILIRUBIN,TOTAL 0.7 MG/DL (0.1-1.0); BUN/CREATININE RATIO 15; CALCIUM 9.5 MG/DL (8.5-10.1); CARBON DIOXIDE 23 MMOL/L (21-32); CHLORIDE 102 MMOL/L (98-107); CHOLESTEROL 171 MG/DL (< 200); CREATININE SERUM 1.24 MG/DL (0.60-1.30); GFR ESTIMATED 57; GLUCOSE 126 MG/DL (70-105); HDL CHOLESTEROL 32 MG/DL (40-60); POTASSIUM 4.3 MMOL/L (3.6-5.0); SODIUM 135 MMOL/L (135-145); TOTAL PROTEIN 7.5 GM/DL (6.4-8.2); TRIGLYCERIDES 168 MG/DL (<150); VLDL CHOLESTEROL 34 MG/DL (5-40)
[2018-08-13] MEDS ORDERED: fentaNYL INJECTION 100 MCG/2 ML AMP ONE (09:22)
[2018-08-13] MEDS ORDERED: MIDAZOLAM 5 MG/5 ML (VERSED) VIAL ONE (09:22)
--- NOTE | 2018-08-13 10:10 | Cardiac Procedure Note-CS/ASA ---
Pre-Procedure Note Pre-Op Procedure Note H&P Reviewed The H&P was reviewed, patient examined and no changes noted. Date H&P Reviewed: Aug 13, 2018 Time H&P Reviewed: 10:10 Conscious Sedation Pre-Proced Time 10:10 ASA Score 3 For ASA 3 and 4: Consider anesthesia and medical clearance. Also, for patients with a history of failed moderate sedation consider anesthesia. Airway Lungs Heart ASA score ASA 1: a normal healthy patient ASA 2: a patient with a mild systemic disease (mid diabetes, controlled hypertension, obesity ASA 3: a patient with a severe systemic disease that limits activity (angina , COPD, prior Myocardial infarction) ASA 4: a patient with an incapacitating disease that is a constant threat to life (CHF, renal failure) ASA 5: a moribund patient not expected to survive 24 hrs. (ruptured aneurysm) ASA 6: a declared brain- patient whose organs are being harvested. For emergent operations, add the letter E after the classification Mallampati Classification Grade 2 Sedation Plan Analgesia, Amnesia, Plan communicated to team members, Discussed options with patient/fam, Discussed risks with patient/fam The patient is an appropriate candidate to undergo the planned procedure, sedation, and anesthesia. The patient immediately re-assessed prior to indication. DELORES ZHANG MD FACP FAC CCDS Aug 13, 2018 10:10
[2018-08-13] MEDS ORDERED: NS IV 1000 ML 1,000 ML IV SCH ×2 (10:30→11:05)
[2018-08-13] MEDS ORDERED: FLU QUADRIvalent (5+ YOA) 2018-2019 (AFLURIA) 0.5 ML IM ONE (10:30)
--- NOTE | 2018-08-13 11:09 | Discharge Inst-Cardiology ---
Discharge Inst-Cardiac Discharge Medications Continued Medications: Aspirin (Aspirin EC) 81 Mg Tablet.dr 81 MG PO DAILY, TAB Budesonide/Formoterol Fumarate (Symbicort 160-4.5 Mcg Inhaler) 10.2 Gm Hfa.aer.ad 2 PUFF IH BID PRN for SHORTNESS OF BREATH, INHALER Glipizide (Glipizide ER) 5 Mg Tab.er.24 5 MG PO DAILY, TAB Levothyroxine Sodium (Levothyroxine Sodium) 25 Mcg Tablet 25 MCG PO DAILY, TAB Losartan Potassium (Losartan Potassium) 100 Mg Tablet 100 MG PO DAILY, TAB Metoprolol Succinate (Metoprolol Succinate) 25 Mg Tab.er.24h 25 MG PO DAILY, TAB Montelukast Sodium (Montelukast Sodium) 10 Mg Tablet 10 MG PO HS, TAB Nitroglycerin (Nitroglycerin) 0.4 Mg Tab.subl 0.4 MG SL UD PRN for CHEST PAIN, TAB Pantoprazole Sodium (Pantoprazole Sodium) 40 Mg Tablet.dr 40 MG PO DAILY, TAB Orders-Post D/C & Referrals Pneu Vac Indicated: Yes DELORES ZHANG MD FACP FACC CCDS Aug 13, 2018 11:09
--- NOTE | 2018-08-13 11:09 | Discharge Inst-Post CATH ---
Discharge Inst-CATH/EP Post Cardiac Cath/EP D/C Inst Follow Up/Plan F/u with Dr Cheney in 2 weeks CARDIAC CATH DISCHARGE INSTRUCTIONS *Hold Metformin for 48 hours post heart cath. ACTIVITY * Go Home directly and rest. * Limit activity of the leg (or wrist if it was used) for 7 days including aerobics, swimming, jogging, bicycling, etc. * Restrict stair-climbing for 7 days if possible, if not, climb up with your non -cath leg, then bring together on the same step. * Avoid lifting, pushing, pulling or excessive movement of the affected extremity for 7 days. * Customary sexual activity may be resumed after 2 days-use caution not to use a position that strains or causes pain to the affected extremity. * No driving for 24 hours. * NO SMOKING. * Avoid straining for bowel movements for 7 days. * Gentle walking on level ground is allowed. * Returning to work will depend on the type of procedure and the results. Your doctor will discuss this with you. CALL YOUR DOCTOR FOR ANY OF THE FOLLOWING: *If bleeding from the puncture site occurs- Apply gentle pressure to site with clean cloth and call your doctor or EMS. * If a knot or lump forms under the skin, increases in size, or causes pain. * If bruising appears to be worsening or moving further down your leg instead of disappearing. * Temperature above 101 F. CARE OF YOUR GROIN INCISION; * Bruising or purple discoloration of the skin near the puncture site is common. * You may shower only, no bathtub bathing for 5 days. Be careful to avoid slipping as your leg may feel stiff. * If a closure device was used on your femoral artery, please see the attached guide regarding care of the device and your leg. * Leave the dressing on, until removed by office staff. CARE OF YOUR WRIST INCISION; * Bruising or purple discoloration of the skin near the puncture site is common. * You may shower. * DO NOT submerge wrist. * Leave dressing on, until removed by office staff.. DELORES CHENEY MD [facility] CCDS Aug 13, 2018 11:09
--- NOTE | 2018-08-13 11:12 | CARDIAC CATHETERIZATION ---
DATE OF SERVICE: 08/13/2018 CARDIAC CATHETERIZATION REPORT The patient is a 73-year-old man with a history of coronary artery disease who has had stenting of the right coronary with subsequent percutaneous interventions for in-stent restenosis. He has had recurrent symptoms suggestive of recurrent angina. Cardiac catheterization was carried out today after having obtained an informed consent. PROCEDURE: She was brought to the cardiac catheterization laboratory in a fasting state. Right groin was prepared and draped in the usual sterile fashion. Lidocaine 1% for local anesthesia. Modified Seldinger technique was used to advance a 5-Angolan sheath in the right femoral artery, 5-Angolan JL4 catheter was used for left coronary angiography, 5-Angolan JR4 catheter was used for left heart catheterization and left ventricular angiography. We were not able to engage the right coronary artery with a 5-Angolan JR4 catheter. We used a 5-Angolan AR MOD to engage the right coronary artery. The catheter was then removed and angiography of the right femoral artery was carried out through the sheath. Mynx was used to achieve hemostasis. He tolerated the procedure well. HEMODYNAMICS: Left ventricular end-diastolic pressure following coronary angiography was 15 mmHg. There was no significant pressure gradient on pullback across the aortic valve. Ascending aortic pressure was 121/64 with a mean of 85 mmHg. LEFT VENTRICULAR ANGIOGRAPHY: Left ventricular angiography was carried out in the right anterior oblique projection. Global left ventricular systolic function is normal. Left ventricular ejection fraction is approximately 60%. There does not appear to be significant mitral regurgitation. CORONARY ANGIOGRAPHY: Left main coronary artery is free of significant disease. The left anterior descending artery has a mild haziness and a stenosis of 20% to 30% in the proximal portion. Left circumflex artery does not exhibit significant disease. 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 It has a patent stent in its mid portion that is known to be Xience 2.75 x 23 mm overlapped by a Xience 3.0 x 8 mm. The overlapping stents do not exhibit significant stent restenosis. The stent restenosis is not estimated to be more than 30%. Flow throughout the vessel is normal. CONCLUSIONS: 1. Coronary artery disease, mild. Left anterior descending artery has 20 to 30% proximal stenosis. Left circumflex artery has patent overlapping stents (known to be Xience 3.0 x 8 proximally and 2.75 x 23 distally) with approximately 30% in-stent restenosis. 2. Normal global left ventricular systolic function with ejection fraction approximately 60%. 3. Left ventricular end-diastolic pressure at the top limit of normal to mildly elevated. DISCUSSION AND RECOMMENDATIONS: Based on the results of the study, it appears appropriate to continue a conservative approach. Current regimen is being continued. Risk factor modification has been discussed. Outpatient followup is advised. Job ID: [id number] DocumentID: [id number] Dictated Date: 08/13/2018 10:58:10 Development Educator Date: 08/13/2018 11:12:12 Dictated By: DELORES ZHANG MD, MA, FACP, FACC, MTDD
[2018-08-13] MEDS ORDERED: PATIENT MAY USE OWN MEDS, ALL PO SCH (11:15)
--- NOTE | 2018-08-13 12:30 | NUR ---
he dropping to 37-39 intermittently. pt very drowsy. wakes up et answers questions appropriately. denies c/o. cora talamantes in woodworking shop laborer notified. she will report to dr melara.
--- NOTE | 2018-08-13 14:15 | NUR ---
pt amb in hallway without difficulty. upon returning to room he reports decreased sensation in thigh, upon palpation. does not affect ability to ambulate. pulses unchanged. leg remains warm, pink. dr melara notified via byron in concrete mixing plant laborer. he reports it is ok to dc pt, but have him stop by office for evaluation tomorrow. office staff requests pt stop by at approx 1100.
== END 2018-08-13 14:35 | disposition home or self-care (01) ==
LOC: CATH 08:02 → SDC 11:23 → CATH 14:35
PROVIDERS: ATTEND Internal Medicine Cardiovascular Disease
DX: I25.10 Atherosclerotic heart disease of native coronary artery without angina pectoris (principal); I10 Essential (primary) hypertension; J43.9 Emphysema, unspecified; K21.9 Gastro-esophageal reflux disease without esophagitis; K44.9 Diaphragmatic hernia without obstruction or gangrene; R73.9 Hyperglycemia, unspecified; Z87.891 Personal history of nicotine dependence; Z79.82 Long term (current) use of aspirin; Z79.899 Other long term (current) drug therapy; Z95.5 Presence of coronary angioplasty implant and graft
CPT/HCPCS: 36415; 80053; 80061; 82962; 85027; 85610; 85730; 87081; 93458; 93567

== ENCOUNTER → 2018-09-03 | Outpatient (CLI) | payer MEDICARE ==
[~2018-09-03] MED LIST changes: -AMLO5TAB2 PO; +AMLO5TAB9 PO; +GLIP5TAB26 PO; +IOHEXOL 350 MG/ML 100 ML (OMNIPAQUE 350) VIAL IV ONE; -LOSA100T28 PO; +LOSA100T57 PO; +METO-387 PO; +NS 100 ML (IVPB) BAG IV ONE; +RECEIVED CONTRAST 20 ML VIAL IV SCH
[2018-09-03 13:53] LABS: BUN/CREATININE RATIO 15; CREATININE SERUM 1.18 MG/DL (0.60-1.30); GFR ESTIMATED > 60
--- NOTE | 2018-09-03 16:12 | Diagnostic Imaging Report ---
PROCEDURE: CT chest with contrast only. TECHNIQUE: Multiple contiguous axial images were obtained through the chest after administration of intravenous contrast. INDICATION: COPD and asthma. COMPARISON: Comparison is made with prior low-dose CT chest from 11/07/2017. FINDINGS: No axillary lymphadenopathy is identified. Previously noted mildly prominent lymph nodes in the mediastinum appear similar to prior exam. No hilar lymphadenopathy is identified. No pericardial or pleural fluid is detected. Biapical pleural-parenchymal scarring is seen. Centrilobular emphysematous changes are noted. Tiny nodule in the right apex is stable at approximately 3 mm, image #11. Tiny nodule adjacent to the fissure in the right upper lobe is stable at 3-4 mm, image #28. No new parenchymal mass is identified. No infiltrates are identified. Upper abdomen demonstrates hepatic steatosis. IMPRESSION: 1. Stable right upper lobe micronodules when compared with exam from 11/07/2017. Stable mediastinal lymph nodes are noted as well. No new abnormality is identified. 2. Hepatic steatosis. Dictated by: Dictated on workstation # [id number]
== END ==
LOC: RAD 13:20
PROVIDERS: ATTEND Nurse Practitioner Family
DX: J44.9 Chronic obstructive pulmonary disease, unspecified (principal); K76.0 Fatty (change of) liver, not elsewhere classified; R91.8 Other nonspecific abnormal finding of lung field; G47.34 Idiopathic sleep related nonobstructive alveolar hypoventilation; B37.0 Candidal stomatitis
CPT/HCPCS: 36415; 71260; 82565; 84520

== ENCOUNTER → 2018-09-25 | Outpatient (CLI) | payer MEDICARE ==
[~2018-09-25] MED LIST changes: -IOHEXOL 350 MG/ML 100 ML (OMNIPAQUE 350) VIAL IV ONE; -NS 100 ML (IVPB) BAG IV ONE; -RECEIVED CONTRAST 20 ML VIAL IV SCH; +RT-ALBUTEROL SULF 2.5 MG/3 ML PRE-MIX VIAL INH ONE
== END ==
LOC: RT 15:23
PROVIDERS: ATTEND Nurse Practitioner Family
DX: J44.9 Chronic obstructive pulmonary disease, unspecified (principal); R91.8 Other nonspecific abnormal finding of lung field; B37.0 Candidal stomatitis; R09.02 Hypoxemia
CPT/HCPCS: 94060; 94726; 94729

== ENCOUNTER 2019-09-04 20:09 | Observation (INO) | payer MEDICARE ==
[~2019-09-04] VITALS: Ht 180.3 cm; Wt 105.7 kg
[2019-09-04] VITALS (7 sets, daily range): BP systolic 117–153; BP diastolic 64–80
[~2019-09-04 20:09] MED LIST changes: -ATOR10TA PO; -ISOS30TA3 PO
[2019-09-04 20:25] LABS: BASOPHILS # (AUTO) 0.1 10^3/uL (0.0-0.1); BASOPHILS % (AUTO) 1 % (0-10); EOSINOPHILS # (AUTO) 0.2 10^3/uL (0.0-0.3); EOSINOPHILS % (AUTO) 3 % (0-10); HEMATOCRIT 44 % (40-54); HEMOGLOBIN 15.6 G/DL (13.3-17.7); LYMPHOCYTES # (AUTO) 2.2 X 10^3 (1.0-4.0); LYMPHOCYTES % (AUTO) 34 % (12-44); MEAN CORPUSCULAR HEMOGLOBIN 32 PG (25-34); MEAN CORPUSCULAR HGB CONC 35 G/DL (32-36); MEAN CORPUSCULAR VOLUME 90 FL (80-99); MEAN PLATELET VOLUME 9.2 FL (7.4-10.4); MONOCYTES # (AUTO) 1.1 X 10^3 (0.0-1.0); MONOCYTES % (AUTO) 17 % (0-12); NEUTROPHILS # (AUTO) 2.9 X 10^3 (1.8-7.8); NEUTROPHILS % (AUTO) 46 % (42-75); PLATELET COUNT 278 10^3/uL (130-400); RED CELL DISTRIBUTION WIDTH 12.6 % (10.0-14.5); WHITE BLOOD COUNT 6.4 10^3/uL (4.3-11.0)
[2019-09-04] MEDS ORDERED: ASPIRIN 81 MG CHEW (CHILDREN'S ASA) PO ONE (20:30)
[2019-09-04] MEDS: NITROGLYCERIN 0.4 MG SL TABS BTL 25'S SL PRN ×3 (20:32→21:27)
--- NOTE | 2019-09-04 20:33 | NUR ---
1st nitro given bp 142/70 p59 rr12 po2 94% on 2 liters pain 07/04
--- NOTE | 2019-09-04 20:33 | ED Chest Pain ---
General Chief Complaint: Chest Pain Stated Complaint: SOB, CHEST PAIN Source: patient (PT IS VAGUE, SOMEWHAT LIMITED HISTORIAN), old records History of Present Illness Date Seen by Provider: Sep 04, 2019 Time Seen by Provider: 20:18 Initial Comments PT ARRIVES VIA POV FROM HOME STATES HE HAS BEEN HAVING "CHEST DISCOMFORT" FOR A WEEK PAIN IS IN LEFT MID CHEST STATES PAIN "COMES AND GOES" BUT HAS BEEN CONSTANT ALL DAY TODAY STATES NOTHING WORSENS OR IMPROVES PAIN PT HAS HAD NTG X 2 TODAY, WITHOUT RELIEF, BUT WAS AN OLD RX. STATES HE "PICKED UP A NEW PRESCRIPTION FROM THE PHARMACY ON THE WAY HERE", BUT DID NOT TAKE ANY STATES HE HAS HAD SHORTNESS OF BREATH ON EXERTION FOR THE LAST WEEK NO RADIATION OF PAIN NO SWEATS NO NAUSEA/VOMITING NO COUGH/CONGESTION OR FEVER OR RECENT ILLNESS NO SWELLING IN FEET/ANKLES OR PAIN IN CALVES NO PALPITATIONS RATES PAIN 2-3 PT HAS HISTORY OF CAD AND HAS HAD STENTS X 4 --LAST CATH WAS 07/2018--NO INTERVENTION AT THAT TIME PCP: DR. FOX ENDOSCOPY SUPPORT SPECIALIST: DR. ZHANG Allergies and Home Medications Allergies Coded Allergies: No Known Drug Allergies (Verified , 08/31/17) Home Medications Aspirin 81 Mg Tablet., 81 MG PO DAILY, (Reported) Atorvastatin Calcium 10 Mg Tablet, 10 MG PO DAILY Prescribed by: DANIELLE ANGELES on 09/05/19 1221 Budesonide/Formoterol Fumarate 10.2 Gm Hfa.aer.ad, 2 PUFF IH BID PRN for MICK RTNESS OF BREATH, (Reported) Glipizide 5 Mg Tab.er.24, 5 MG PO DAILY, (Reported) Isosorbide Mononitrate 30 Mg Tab.er.24h, 30 MG PO DAILY Prescribed by: DANIELLE ANGELES on 09/05/19 1221 Levothyroxine Sodium 25 Mcg Tablet, 25 MCG PO DAILY, (Reported) Losartan Potassium 100 Mg Tablet, 100 MG PO DAILY, (Reported) Metoprolol Succinate 25 Mg Tab.er.24h, 25 MG PO DAILY, (Reported) Montelukast Sodium 10 Mg Tablet, 10 MG PO HS, (Reported) Nitroglycerin 0.4 Mg Tab.subl, 0.4 MG SL UD PRN for CHEST PAIN, (Reported) Pantoprazole Sodium 40 Mg Tablet., 40 MG PO DAILY, (Reported) Patient Home Medication List Home Medication List Reviewed: Yes Review of Systems Review of Systems Constitutional: no symptoms reported; No chills, No diaphoresis, No dizziness, No fever, No malaise, No weakness EENTM: No Symptoms Reported Respiratory: See HPI, SOA With Exertion Cardiovascular: See HPI, Chest Pain; Denies Edema, Denies Irregular Heart Rate, Denies Lightheadedness, Denies Palpitations, Denies Syncope Gastrointestinal: Denies Abdominal Pain; Constipated (WITH INTERMITTENT ABDOMINAL CRAMPING); Denies Vomiting Genitourinary: No Symptoms Reported Musculoskeletal: no symptoms reported; No back pain Skin: no symptoms reported Psychiatric/Neurological: No Symptoms Reported Endocrine: No Symptoms Reported, Other (PT IS NON-INSULIN DEPENDENT DIABETIC, DOES NOT CHECK BLOOD GLUCOSE ON REGULAR BASIS) Hematologic/Lymphatic: No Symptoms Reported Past Bpbxcof-Byexzw-Isnxiw Hx Past Med/Social Hx: Reviewed and Corrections made Patient Social History Alcohol Use: Occasionally Uses Alcohol Beverage of Choice: Beer Recreational Drug Use: No Smoking Status: Former Smoker Type Used: Cigarettes Former Smoker, Quit: Jun 25, 2011 Recent Foreign Travel: No Contact w/Someone Who Travel: No Recent Hopitalizations: No Immunizations Up To Date Tetanus Booster (TDap): Less than 5yrs Date of Influenza Vaccine: Jun 05, 2017 Seasonal Allergies Seasonal Allergies: No Past Medical History Surgeries: Yes (SEE BELOW) Abdominal, Adenoidectomy, Cardiac, Coronary Stent, Tonsillectomy Respiratory: Yes (02 AT NIGHT) COPD, Emphysema Currently Using CPAP: No Currently Using BIPAP: No Cardiac: Yes (CATH--STENTS X 4) Coronary Artery Disease, High Cholesterol, Hypertension Neurological: No Reproductive Disorders: No Sexually Transmitted Disease: No Genitourinary: No Gastrointestinal: Yes (CONSTIPATION ALTERNATING WITH DIARRHEA) Gastroesophageal Reflux, Chronic Constipation Musculoskeletal: Yes Arthritis, Back Injury, Chronic Back Pain Endocrine: Yes HEENT: Yes (cataracts removed x 2-3 weeks ago) Cataract Hearing Impairment: Hard of Hearing Cancer: No Psychosocial: No Anxiety, Depression Integumentary: No Blood Disorders: No Adverse Reaction/Blood Tranf: No Family Medical History Alcoholism G8 BROTHER, Onset:20's - 25 Alzheimer's disease 19 FATHER, Onset:60 years & older Cardiovascular disease 19 FATHER, Onset:60 years & older 19 MOTHER, Onset:60 years & older Cataracts 19 MOTHER, Onset:60 years & older Completed stroke 19 FATHER, Onset:60 years & older Dementia 19 FATHER, Onset:60 years & older Diabetes mellitus 19 FATHER, Onset:60 years & older 19 MOTHER, Onset:60 years & older Hypercholesterolemia 19 FATHER, Onset:60 years & older 19 MOTHER, Onset:60 years & older Hypertension 19 FATHER, Onset:Unknown 19 MOTHER, Onset:Unknown Myocardial infarction 19 FATHER, Onset:60 years & older 19 MOTHER Respiratory disorder G8 BROTHER, Onset:50's - 60 No Family History of: AIDS Abdominal aortic aneurysm Jan's disease Aphasia Arthritis Asthma Cancer of mouth Colon cancer Congenital disease Congenital heart disease Coronary thrombosis Cystic fibrosis Deafness or hearing loss Drug abuse Dysphasia Fibrocystic disease of breast Gastroenteritis Glaucoma Headache disorder Infertility Kidney disease Neoplasm Not obtainable due to adoption Osteoporosis Parkinson's disease Prostate cancer Psychosocial problem Seizure disorder Severe allergy Thyroid disease Tuberculosis Visual disorder PSH: -UMBILICAL HERNIA REPAIR -MULTIPLE CARDIAC CATHS--STENTS X 4--LAST CATH 08/13/18--NO INTERVENTION AT THAT TIME -EGD/COLONOSCOPY -HEMORRHOIDECTOMY -CYSTS REMOVED FROM BACK Physical Exam Vital Signs Vital Signs - First Documented 09/04/19 20:15 Temp 36.5 Pulse 66 Resp 17 B/P (MAP) 166/84 (111) Pulse Ox 96 O2 Delivery Nasal Cannula O2 Flow Rate 2.0 FiO2 94 Capillary Refill : Height, Weight, BMI Height: 6'0.00" Weight: 233lbs. 0.0oz. 105.701672tp; 31.6 BMI Method:Stated General Appearance: No Apparent Distress, WD/WN, Other (DOES NOT APPEAR TO BE IN ANY DISCOMFORT OR DISTRESS, VERY NON-CHALANT ABOUT SYMPTOMS) Neck: Full Range of Motion, Normal Inspection, Non Tender, Supple; No Carotid Bruit, No JVD Respiratory: Chest Non Tender, Normal Breath Sounds, No Accessory Muscle Use, No Respiratory Distress Cardiovascular: Regular Rate, Rhythm, No Edema, No JVD, No Murmur, Normal Peripheral Pulses Gastrointestinal: Normal Bowel Sounds, No Organomegaly, No Pulsatile Mass, Non Tender, Soft Extremity: Normal Capillary Refill, Normal Inspection, Normal Range of Motion, Non Tender, No Calf Tenderness, No Pedal Edema Neurologic/Psychiatric: Alert, Oriented x3, No Motor/Sensory Deficits, Normal Mood/Affect, travel pt II-XII Norm as Tested Skin: Normal Color, Warm/Dry; No Rash Progress/Results/Core Measures Results/Orders Lab Results Laboratory Tests Test 09/04/19 20:19 Range/Units White Blood Count 6.4 4.3-11.0 10^3/uL Red Blood Count 4.91 4.35-5.85 10^6/uL Hemoglobin 15.6 13.3-17.7 G/DL Hematocrit 44 40-54 % Mean Corpuscular Volume 90 80-99 FL Mean Corpuscular Hemoglobin 32 25-34 PG Mean Corpuscular Hemoglobin Concent 35 32-36 G/DL Red Cell Distribution Width 12.6 10.0-14.5 % Platelet Count 278 130-400 10^3/uL Mean Platelet Volume 9.2 7.4-10.4 FL Neutrophils (%) (Auto) 46 42-75 % Lymphocytes (%) (Auto) 34 12-44 % Monocytes (%) (Auto) 17 H 0-12 % Eosinophils (%) (Auto) 3 0-10 % Basophils (%) (Auto) 1 0-10 % Neutrophils # (Auto) 2.9 1.8-7.8 X 10^3 Lymphocytes # (Auto) 2.2 1.0-4.0 X 10^3 Monocytes # (Auto) 1.1 H 0.0-1.0 X 10^3 Eosinophils # (Auto) 0.2 0.0-0.3 10^3/uL Basophils # (Auto) 0.1 0.0-0.1 10^3/uL Prothrombin Time 14.1 12.2-14.7 SEC INR Comment 1.0 0.8-1.4 Activated Partial Thromboplast Time 31 24-35 SEC Sodium Level 136 135-145 MMOL/L Potassium Level 3.8 3.6-5.0 MMOL/L Chloride Level 102 98-107 MMOL/L Carbon Dioxide Level 23 21-32 MMOL/L Anion Gap 11 5-14 MMOL/L Blood Urea Nitrogen 15 7-18 MG/DL Creatinine 1.17 0.60-1.30 MG/DL Estimat Glomerular Filtration Rate > 60 BUN/Creatinine Ratio 13 Glucose Level 81 70-105 MG/DL Calcium Level 9.4 8.5-10.1 MG/DL Corrected Calcium 8.5-10.1 MG/DL Magnesium Level 2.2 1.6-2.4 MG/DL Total Bilirubin 0.9 0.1-1.0 MG/DL Aspartate Amino Transf (AST/SGOT) 32 5-34 U/L Alanine Aminotransferase (ALT/SGPT) 43 0-55 U/L Alkaline Phosphatase 58 40-136 U/L Total Creatine Kinase 456 H 30-200 U/L Creatine Kinase MB 9.7 *H <6.6 NG/ML Myoglobin 142.1 H 10.0-92.0 NG/ML Troponin I < 0.028 <0.028 NG/ML B-Type Natriuretic Peptide < 10.0 <100.0 PG/ML Total Protein 7.8 6.4-8.2 GM/DL Albumin 4.7 H 3.2-4.5 GM/DL Amylase Level 95 25-125 U/L Lipase 39 8-78 U/L My Orders Orders - HOME KELSEY DO Cbc With Automated Diff (09/04/19 20:18) Magnesium (09/04/19 20:18) Ekg Tracing (09/04/19 20:18) Comprehensive Metabolic Panel (09/04/19 20:18) Myoglobin Serum (09/04/19 20:18) Protime With Inr (09/04/19 20:18) Partial Thromboplastin Time (09/04/19 20:18) O2 (09/04/19 20:18) Monitor-Rhythm Ecg Trace Only (09/04/19 20:18) Ed Iv/Invasive Line Start (09/04/19 20:18) Creatine Kinase (09/04/19 20:18) Creatine Kinase Mb (09/04/19 20:18) Lipase (09/04/19 20:18) Amylase (09/04/19 20:18) BNP (09/04/19 20:18) Troponin I (09/04/19 20:18) Nitroglycerin 0.4 Mg Btl 25's (Nitrostat (09/04/19 20:30) Aspirin Chewable Tablet (Baby Aspirin Ch (09/04/19 20:30) Vital Signs/I&O 09/04/19 09/04/19 09/04/19 09/04/19 20:15 20:15 20:15 20:37 Temp 36.5 Pulse 66 60 Resp 17 21 B/P (MAP) 166/84 (111) 126/69 (88) Pulse Ox 96 94 94 O2 Delivery Nasal Cannula Room Air Nasal Cannula O2 Flow Rate 2.0 2.00 2.00 FiO2 94 09/04/19 21:18 Pulse 57 Resp 19 B/P (MAP) 126/71 (89) Pulse Ox 93 Progress Progress Note : Progress Note 2044--DECLINES CXR--STATES HE JUST HAD ONE THIS AFTERNOON, AND ALSO HAD OUTPATIENT LAB THIS AFTERNOON FOR THIS PROBLEM AT 1400 TODAY. NOW STATES HE WAS TOLD TO COME HERE BY DR. FOX'S OFFICE BECAUSE HIS CARDIAC ENZYMES WERE HIGH. PT HAD ELEVATED MYOGLOBIN, BUT NEGATIVE TROPONIN PT RATED PAIN 3/10--GIVEN NTG X 1--PAIN DOWN TO 1/10. GIVEN 2 ADDITIONAL NTG WITHOUT COMPLETE RELIEF OF PAIN --STATES IT IS STILL "THREE FOURTHS OF 1" GIVEN MORPHINE 4 MG WITH COMPLETE RELIEF OF PAIN UNEVENTFUL ER STAY Initial ECG Impression Date: Sep 04, 2019 Initial ECG Impression Time: 20:28 Initial ECG Rate: 61 Initial ECG Rhythm: Normal Sinus Comment FLATTENED T WAVES INFERIORLY Diagnostic Imaging Comments CXR DONE EARLIER--NO ACUTE PROCESS Departure Communication (Admissions) 2119--SPOKE WITH DR. FOX , ACCEPTS PT FOR ADMIT 2121--SPOKE WITH DR. ANGELES, CARDIOLOGY CONSULT. WILL PLAN ON CARDIAC CATH TOMORROW. Impression Primary Impression: Chest pain Additional Impression: CAD (coronary artery disease) Qualified Codes: I25.110 - Atherosclerotic heart disease of burns [place] coronary artery with unstable angina pectoris Disposition: ADMITTED INPATIENT Condition: Improved Admissions Decision to Admit Reason: Admit from ER (General) Decision to Admit/Date: Sep 04, 2019 Time/Decision to Admit Time: 21:20 Departure-Patient Inst. Referrals: MORRIS FOX MD (PCP/Family) Primary Care Physician Scripts Isosorbide Mononitrate (Isosorbide Mononitrate ER) 30 Mg Tab.er.24h 30 MG PO DAILY, #30 TAB 4 Refills Prov: DANIELLE ANGELES MD 09/05/19 Atorvastatin Calcium (Lipitor) 10 Mg Tablet 10 MG PO DAILY, #30 TAB 4 Refills Prov: DANIELLE ANGELES MD 09/05/19 HOME KELSEY DO Sep 04, 2019 20:33
[2019-09-04 20:45] LABS: PROTHROMBIN TIME PATIENT 14.1 SEC (12.2-14.7)
[2019-09-04 20:56] LABS: ALANINE AMINOTRANSFERASE 43 U/L (0-55); ALBUMIN 4.7 GM/DL (3.2-4.5); ALKALINE PHOSPHATASE 58 U/L (40-136); AMYLASE 95 U/L (25-125); BILIRUBIN,TOTAL 0.9 MG/DL (0.1-1.0); BUN/CREATININE RATIO 13; CALCIUM 9.4 MG/DL (8.5-10.1); CARBON DIOXIDE 23 MMOL/L (21-32); CHLORIDE 102 MMOL/L (98-107); CREATINE KINASE 456 U/L (30-200); CREATININE SERUM 1.17 MG/DL (0.60-1.30); GFR ESTIMATED > 60; GLUCOSE 81 MG/DL (70-105); LIPASE 39 U/L (8-78); MAGNESIUM 2.2 MG/DL (1.6-2.4); POTASSIUM 3.8 MMOL/L (3.6-5.0); SODIUM 136 MMOL/L (135-145); TOTAL PROTEIN 7.8 GM/DL (6.4-8.2)
[2019-09-04 21:05] LABS: CREATINE KINASE MB 9.7 NG/ML (<6.6)
[2019-09-04] MEDS ORDERED: ENOXAPARIN 60 MG/0.6 ML (LOVENOX) SYR SC ONE (21:30)
[2019-09-04] MEDS ORDERED: morphine INJ 10 MG/ML 1ML (SYR OR VIAL) IVP STA (21:32)
[2019-09-04] MEDS ORDERED: ONDANSETRON 4 MG/2 ML (SDV) Z0FRAN IV PRN (23:15)
[2019-09-04] MEDS ORDERED: CATHETER FLUSH 10 ML SYR IV PRN (23:15)
[2019-09-04] MEDS ORDERED: morphine INJ 4 MG/ML 1 ML (VIAL/SYRINGE) IV PRN (23:15)
[2019-09-04] MEDS ORDERED: NITROGLYCERIN 0.4 MG SL TABS BTL 25'S SL PRN (23:15)
[2019-09-05] VITALS (12 sets, daily range): BP systolic 109–151; BP diastolic 63–81
[2019-09-05 03:46] LABS: BASOPHILS # (AUTO) 0.1 10^3/uL (0.0-0.1); BASOPHILS % (AUTO) 2 % (0-10); EOSINOPHILS # (AUTO) 0.2 10^3/uL (0.0-0.3); EOSINOPHILS % (AUTO) 3 % (0-10); HEMATOCRIT 42 % (40-54); HEMOGLOBIN 14.6 G/DL (13.3-17.7); LYMPHOCYTES # (AUTO) 2.4 X 10^3 (1.0-4.0); LYMPHOCYTES % (AUTO) 37 % (12-44); MEAN CORPUSCULAR HEMOGLOBIN 32 PG (25-34); MEAN CORPUSCULAR HGB CONC 35 G/DL (32-36); MEAN CORPUSCULAR VOLUME 91 FL (80-99); MEAN PLATELET VOLUME 9.5 FL (7.4-10.4); MONOCYTES # (AUTO) 0.9 X 10^3 (0.0-1.0); MONOCYTES % (AUTO) 14 % (0-12); NEUTROPHILS # (AUTO) 2.9 X 10^3 (1.8-7.8); NEUTROPHILS % (AUTO) 45 % (42-75); PLATELET COUNT 239 10^3/uL (130-400); RED CELL DISTRIBUTION WIDTH 12.5 % (10.0-14.5); WHITE BLOOD COUNT 6.5 10^3/uL (4.3-11.0)
[2019-09-05 04:12] LABS: ALANINE AMINOTRANSFERASE 39 U/L (0-55); ALBUMIN 4.1 GM/DL (3.2-4.5); ALKALINE PHOSPHATASE 54 U/L (40-136); BILIRUBIN,TOTAL 0.6 MG/DL (0.1-1.0); BUN/CREATININE RATIO 14; CARBON DIOXIDE 22 MMOL/L (21-32); CHLORIDE 103 MMOL/L (98-107); CHOLESTEROL 157 MG/DL (< 200); CREATININE SERUM 1.17 MG/DL (0.60-1.30); GFR ESTIMATED > 60; GLUCOSE 163 MG/DL (70-105); HDL CHOLESTEROL 29 MG/DL (40-60); POTASSIUM 3.8 MMOL/L (3.6-5.0); SODIUM 136 MMOL/L (135-145); TOTAL PROTEIN 6.9 GM/DL (6.4-8.2); TRIGLYCERIDES 210 MG/DL (<150); VLDL CHOLESTEROL 42 MG/DL (5-40)
[2019-09-05] MEDS: inSUlin ASPART (NovoLOG) 1 UNIT/0.01 ML (CHARGE PER UNIT) SC SCH ×2 (04:48→11:18)
[2019-09-05] MEDS: CATHETER FLUSH 10 ML SYR IV SCH ×2 (04:48→15:28)
[2019-09-05] MEDS ORDERED: FLU QUADRIvalent (5+ YOA) 2019-2020 (AFLURIA) 0.5 ML IM ONE (07:30)
[2019-09-05] MEDS ORDERED: ASPIRIN E.C. 81 MG (ECOTRIN) TAB PO SCH (09:00)
--- NOTE | 2019-09-05 09:21 | History & Physicial ---
History of Present Illness History of Present Illness Date of Admission Sep 04, 2019 at 21:20 I consulted on this patient on 09/05/19 09:21 Attending Physician Morris Cruz MD Admitting Physician Morris Cruz MD Consult Allergies and Home Medications Allergies Coded Allergies: No Known Drug Allergies (Verified , 08/31/17) Home Medications Aspirin 81 Mg Tablet.dr, 81 MG PO DAILY, (Reported) Budesonide/Formoterol Fumarate 10.2 Gm Hfa.aer.ad, 2 PUFF IH BID PRN for SHORTNESS OF BREATH, (Reported) Glipizide 5 Mg Tab.er.24, 5 MG PO DAILY, (Reported) Levothyroxine Sodium 25 Mcg Tablet, 25 MCG PO DAILY, (Reported) Losartan Potassium 100 Mg Tablet, 100 MG PO DAILY, (Reported) Metoprolol Succinate 25 Mg Tab.er.24h, 25 MG PO DAILY, (Reported) Montelukast Sodium 10 Mg Tablet, 10 MG PO HS, (Reported) Nitroglycerin 0.4 Mg Tab.subl, 0.4 MG SL UD PRN for CHEST PAIN, (Reported) Pantoprazole Sodium 40 Mg Tablet.dr, 40 MG PO DAILY, (Reported) Past Fnokzbi-Rzbzab-Hqfcnp Hx Patient Social History Alcohol Use: Occasionally Uses Number of Drinks Today: AA Alcohol Beverage of Choice: Beer Recreational Drug Use: No Former Smoker, Quit: Jun 25, 2011 Type Used: Cigarettes Recent Foreign Travel: No Contact w/other who traveled: No Recent Hopitalizations: No Recent Infectious Disease Expo: No Immunizations Up To Date Tetanus Booster (TDap): Less than 5yrs Date of Pneumonia Vaccine: Jun 25, 2019 Date of Influenza Vaccine: Jun 05, 2017 Seasonal Allergies Seasonal Allergies: No Surgeries No (UMBILICAL HERNIA, HEMORROIDECTOMY, CYSTS REMOVED FROM BACK) Abdominal, Adenoidectomy, Cardiac, Coronary Stent, Tonsillectomy Respiratory Yes (02 AT NIGHT) Currently Using CPAP: No Currently Using BIPAP: No Cardiovascular Yes (CATH--STENTS X 4) Coronary Artery Disease, High Cholesterol, Hypertension Neurological No Reproductive System Hx Reproductive Disorders: No Sexually Transmitted Disease: No Genitourinary No Gastrointestinal Yes (CONSTIPATION ALTERNATING WITH DIARRHEA) Gastroesophageal Reflux, Chronic Constipation Musculoskeletal Yes Arthritis, Back Injury, Chronic Back Pain Endocrine History of Endocrine Disorders: Yes HEENT History of HEENT Disorders: Yes (cataracts removed x 2-3 weeks ago) HEENT Disorders: Cataract Hearing Impairment: Hard of Hearing Cancer No Psychosocial History of Psychiatric Problem: No Behavioral Health Disorders: Anxiety, Depression Integumentary History of Skin or Integumenta: No Blood Transfusions History of Blood Disorders: No Adverse Reaction to a Blood Tr: No Family Medical History Family Hx: Alcoholism G8 BROTHER, Onset:20's - 25 Alzheimer's disease 19 FATHER, Onset:60 years & older Cardiovascular disease 19 FATHER, Onset:60 years & older 19 MOTHER, Onset:60 years & older Cataracts 19 MOTHER, Onset:60 years & older Completed stroke 19 FATHER, Onset:60 years & older Dementia 19 FATHER, Onset:60 years & older Diabetes mellitus 19 FATHER, Onset:60 years & older 19 MOTHER, Onset:60 years & older Hypercholesterolemia 19 FATHER, Onset:60 years & older 19 MOTHER, Onset:60 years & older Hypertension 19 FATHER, Onset:Unknown 19 MOTHER, Onset:Unknown Myocardial infarction 19 FATHER, Onset:60 years & older 19 MOTHER Respiratory disorder G8 BROTHER, Onset:50's - 60 No Family History of: AIDS Abdominal aortic aneurysm Jan's disease Aphasia Arthritis Asthma Cancer of mouth Colon cancer Congenital disease Congenital heart disease Coronary thrombosis Cystic fibrosis Deafness or hearing loss Drug abuse Dysphasia Fibrocystic disease of breast Gastroenteritis Glaucoma Headache disorder Infertility Kidney disease Neoplasm Not obtainable due to adoption Osteoporosis Parkinson's disease Prostate cancer Psychosocial problem Seizure disorder Severe allergy Thyroid disease Tuberculosis Visual disorder Physical Exam Vital Signs Vital Signs - First Documented 09/04/19 20:15 Temp 36.5 Pulse 66 Resp 17 B/P (MAP) 166/84 (111) Pulse Ox 96 O2 Delivery Nasal Cannula O2 Flow Rate 2.0 FiO2 94 Capillary Refill : Less Than 3 Seconds Height, Weight, BMI Height: 6'0.00" Weight: 233lbs. 0.0oz. 105.723254iz; 32.51 BMI Method:Stated Clinical Quality Measures AMI/AHF: ASA po Prior to arrival: No DVT/VTE Risk/Contraindication: Risk Factor Score Per Nursin RFS Level Per Nursing on Admit: 2=Moderate MORRIS CRUZ MD Sep 05, 2019 09:21
--- NOTE | 2019-09-05 10:27 | Consultation-Cardiology ---
HPI-Cardiology Cardiology Consultation Date of Consultation 09/05/19 Date of Admission Time Seen by Provider: 10:21 Indication: Chest pain HPI 74 years old gentleman with history of coronary artery disease, multiple intervention, hypertension hyperlipidemia. Has been having accelerating angina with recurrent chest pain for the past week has been worsening recently. Had extensive disease as described above with recurrent in-stent restenosis in the right coronary artery. Has been having typical presentation. No palpitation. No syncope or near syncopal episodes. After visiting with the patient decided to proceed with cardiac catheterization. Home Medications & Allergies Allergies: Coded Allergies: No Known Drug Allergies (Verified , 08/31/17) Home Medication List Reviewed: Yes MMV-Cxyjmg-Mpivao Hx Patient Social History Marital Status: Employed/Student: employed Alcohol Use: Occasionally Uses Recreational Drug Use: No Former smoker/When Quit: Jan 02, 2012 Type Used: Cigarettes Recent Foreign Travel: No Recent Infectious Disease Expo: No Recent Hopitalizations: No Immunizations Up To Date Tetanus Booster (TDap): Less than 5yrs Date of Pneumonia Vaccine: Jun 25, 2019 Date of Influenza Vaccine: Jun 05, 2017 Past Medical History Discussed below Family Medical History Family History: Alcoholism G8 BROTHER, Onset:20's - 25 Alzheimer's disease 19 FATHER, Onset:60 years & older Cardiovascular disease 19 FATHER, Onset:60 years & older 19 MOTHER, Onset:60 years & older Cataracts 19 MOTHER, Onset:60 years & older Completed stroke 19 FATHER, Onset:60 years & older Dementia 19 FATHER, Onset:60 years & older Diabetes mellitus 19 FATHER, Onset:60 years & older 19 MOTHER, Onset:60 years & older Hypercholesterolemia 19 FATHER, Onset:60 years & older 19 MOTHER, Onset:60 years & older Hypertension 19 FATHER, Onset:Unknown 19 MOTHER, Onset:Unknown Myocardial infarction 19 FATHER, Onset:60 years & older 19 MOTHER Respiratory disorder G8 BROTHER, Onset:50's - 60 No Family History of: AIDS Abdominal aortic aneurysm [place]'s disease Aphasia Arthritis Asthma Cancer of mouth Colon cancer Congenital disease Congenital heart disease Coronary thrombosis Cystic fibrosis Deafness or hearing loss Drug abuse Dysphasia Fibrocystic disease of breast Gastroenteritis Glaucoma Headache disorder Infertility Kidney disease Neoplasm Not obtainable due to adoption Osteoporosis Parkinson's disease Prostate cancer Psychosocial problem Seizure disorder Severe allergy Thyroid disease Tuberculosis Visual disorder Review of Systems-General Review of Systems Constitutional: no symptoms reported, see HPI; No chills, No diaphoresis, No dizziness, No fever, No malaise, No weakness EENTM: see HPI, no symptoms reported Respiratory: see HPI; No cough; dyspnea on exertion; No hemoptysis, No orthopnea, No phlegm, No short of breath, No stridor, No wheezing, No other Cardiovascular: see HPI, chest pain; No edema, No Hx of Intervention, No palpitations, No syncope, No vascular heart diseas, No other Gastrointestinal: no symptoms reported, see HPI Genitourinary: no symptoms reported, see HPI Musculoskeletal: no symptoms reported, see HPI; No back pain Skin: no symptoms reported, see HPI Psychiatric/Neurological: No Symptoms Reported, See HPI Reviewed Test Results Reviewed Test Results Lab Laboratory Tests Test 09/04/19 20:19 09/05/19 03:16 Range/Units White Blood Count 6.4 6.5 4.3-11.0 10^3/uL Red Blood Count 4.91 4.60 4.35-5.85 10^6/uL Hemoglobin 15.6 14.6 13.3-17.7 G/DL Hematocrit 44 42 40-54 % Mean Corpuscular Volume 90 91 80-99 FL Mean Corpuscular Hemoglobin 32 32 25-34 PG Mean Corpuscular Hemoglobin Concent 35 35 32-36 G/DL Red Cell Distribution Width 12.6 12.5 10.0-14.5 % Platelet Count 278 239 130-400 10^3/uL Mean Platelet Volume 9.2 9.5 7.4-10.4 FL Neutrophils (%) (Auto) 46 45 42-75 % Lymphocytes (%) (Auto) 34 37 12-44 % Monocytes (%) (Auto) 17 H 14 H 0-12 % Eosinophils (%) (Auto) 3 3 0-10 % Basophils (%) (Auto) 1 2 0-10 % Neutrophils # (Auto) 2.9 2.9 1.8-7.8 X 10^3 Lymphocytes # (Auto) 2.2 2.4 1.0-4.0 X 10^3 Monocytes # (Auto) 1.1 H 0.9 0.0-1.0 X 10^3 Eosinophils # (Auto) 0.2 0.2 0.0-0.3 10^3/uL Basophils # (Auto) 0.1 0.1 0.0-0.1 10^3/uL Prothrombin Time 14.1 12.2-14.7 SEC INR Comment 1.0 0.8-1.4 Activated Partial Thromboplast Time 31 24-35 SEC Sodium Level 136 136 135-145 MMOL/L Potassium Level 3.8 3.8 3.6-5.0 MMOL/L Chloride Level 102 103 98-107 MMOL/L Carbon Dioxide Level 23 22 21-32 MMOL/L Anion Gap 11 11 5-14 MMOL/L Blood Urea Nitrogen 15 16 7-18 MG/DL Creatinine 1.17 1.17 0.60-1.30 MG/DL Estimat Glomerular Filtration Rate > 60 > 60 BUN/Creatinine Ratio 13 14 Glucose Level 81 163 H 70-105 MG/DL Calcium Level 9.4 9.0 8.5-10.1 MG/DL Corrected Calcium 8.9 8.5-10.1 MG/DL Magnesium Level 2.2 1.6-2.4 MG/DL Total Bilirubin 0.9 0.6 0.1-1.0 MG/DL Aspartate Amino Transf (AST/SGOT) 32 28 5-34 U/L Alanine Aminotransferase (ALT/SGPT) 43 39 0-55 U/L Alkaline Phosphatase 58 54 40-136 U/L Total Creatine Kinase 456 H 30-200 U/L Creatine Kinase MB 9.7 *H <6.6 NG/ML Myoglobin 142.1 H 10.0-92.0 NG/ML Troponin I < 0.028 < 0.028 <0.028 NG/ML B-Type Natriuretic Peptide < 10.0 <100.0 PG/ML Total Protein 7.8 6.9 6.4-8.2 GM/DL Albumin 4.7 H 4.1 3.2-4.5 GM/DL Amylase Level 95 25-125 U/L Lipase 39 8-78 U/L Triglycerides Level 210 H <150 MG/DL Cholesterol Level 157 < 200 MG/DL LDL Cholesterol Direct 114 1-129 MG/DL VLDL Cholesterol 42 H 5-40 MG/DL HDL Cholesterol 29 L 40-60 MG/DL Physical Exam Physical Exam Vital Signs Vital Signs - First Documented 09/04/19 20:15 Temp 36.5 Pulse 66 Resp 17 B/P (MAP) 166/84 (111) Pulse Ox 96 O2 Delivery Nasal Cannula O2 Flow Rate 2.0 FiO2 94 Capillary Refill : Less Than 3 Seconds Height, Weight, BMI Height: 6'0.00" Weight: 233lbs. 0.0oz. 105.255676uj; 32.51 BMI Method:Stated General Appearance: No Apparent Distress, WD/WN, Other (DOES NOT APPEAR TO BE IN ANY DISCOMFORT OR DISTRESS, VERY NON-CHALANT ABOUT SYMPTOMS) Eyes: Bilateral Eye Normal Inspection, Bilateral Eye PERRL, Bilateral Eye EOMI HEENT: PERRL/EOMI, TMs Normal, Normal ENT Inspection, Pharynx Normal, Moist Mucous Membranes Neck: Full Range of Motion, Normal Inspection, Non Tender, Supple; No Carotid Bruit, No JVD Respiratory: Chest Non Tender, Normal Breath Sounds, No Accessory Muscle Use, No Respiratory Distress Cardiovascular: Regular Rate, Rhythm, No Edema, No JVD, No Murmur, Normal Peripheral Pulses Gastrointestinal: Normal Bowel Sounds, No Organomegaly, No Pulsatile Mass, Non Tender, Soft Back: Normal Inspection, No CVA Tenderness, No Vertebral Tenderness Extremity: Normal Capillary Refill, Normal Inspection, Normal Range of Motion, Non Tender, No Calf Tenderness, No Pedal Edema Neurologic/Psychiatric: Alert, Oriented x3, No Motor/Sensory Deficits, Normal Mood/Affect, flour blender II-XII Norm as Tested Skin: Normal Color, Warm/Dry; No Rash Lymphatic: No Adenopathy A/P-Cardiology Admission Diagnosis Unstable angina Coronary artery disease Hypertension Hyperlipidemia Assessment/Plan Chest pain nonspecific etiology resembling angina, accelerating angina, extensive cardiac history, planning to proceed with cardiac catheterization possible PTCA. Coronary artery disease, multiple intervention, total of 4 stents in the right coronary artery, recurrent in-stent restenosis with balloon angioplasty. Planning to proceed with cardiac catheterization possible PTCA Hypertension, restart home medication monitor blood pressure next Hyperlipidemia, monitor lipids next Diabetes mellitus, followed and managed by primary care physician Clinical Quality Measures AMI/AHF: ASA po Prior to arrival: No DVT/VTE Risk/Contraindication: Risk Factor Score Per Nursin RFS Level Per Nursing on Admit: 2=Moderate DANIELLE ANGELES MD Sep 05, 2019 10:27
--- NOTE | 2019-09-05 10:28 | Cardiac Procedure Note-CS/ASA ---
Pre-Procedure Note Pre-Op Procedure Note H&P Reviewed The H&P was reviewed, patient examined and no changes noted. Date H&P Reviewed: Sep 05, 2019 Time H&P Reviewed: 10:28 Conscious Sedation Pre-Proced Time 10:28 ASA Score 3 For ASA 3 and 4: Consider anesthesia and medical clearance. Also, for patients with a history of failed moderate sedation consider anesthesia. Airway Lungs Heart ASA score ASA 1: a normal healthy patient ASA 2: a patient with a mild systemic disease (mid diabetes, controlled hypertension, obesity x ASA 3: a patient with a severe systemic disease that limits activity (angina, COPD, prior Myocardial infarction) ASA 4: a patient with an incapacitating disease that is a constant threat to life (CHF, renal failure) ASA 5: a moribund patient not expected to survive 24 hrs. (ruptured aneurysm) ASA 6: a declared brain- patient whose organs are being harvested. For emergent operations, add the letter E after the classification Mallampati Classification Grade 3 Sedation Plan Analgesia, Amnesia, Plan communicated to team members, Discussed options with patient/fam, Discussed risks with patient/fam The patient is an appropriate candidate to undergo the planned procedure, sedation, and anesthesia. The patient immediately re-assessed prior to indication. DANIELLE ANGELES MD Sep 05, 2019 10:28
[2019-09-05] MEDS ORDERED: NS IV 1000 ML 1,000 ML IV SCH ×2 (10:30→12:18)
[2019-09-05] MEDS ORDERED: NS IV 1000 ML 1,000 ML ONE (10:34)
[2019-09-05] MEDS ORDERED: MIDAZOLAM 5 MG/5 ML (VERSED) VIAL ONE (11:10)
[2019-09-05] MEDS ORDERED: LIDOCAINE 1% INJ 20 ML 20 ML VIAL ONE (11:10)
[2019-09-05] MEDS ORDERED: fentaNYL INJECTION 100 MCG/2 ML AMP ONE (11:10)
[2019-09-05] MEDS ORDERED: HEParin (CATH LAB) 2,000 ML IV ONE (11:11)
--- NOTE | 2019-09-05 12:19 | Discharge Inst-Post CATH ---
Discharge Inst-CATH/EP Problems Reviewed?: Yes Post Cardiac Cath/EP D/C Inst Follow Up/Plan Appointment with Dr. Cheney's office in 4 weeks <b>CARDIAC CATH/EP PROCEDURE DISCHARGE INSTRUCTIONS</b> ACTIVITY * Go Home directly and rest. * Limit activity of the leg (or wrist if it was used) for 7 days including aerobics, swimming, jogging, bicycling, etc. * Restrict stair-climbing for 7 days if possible, if not, climb up with your non-cath leg, then bring together on the same step. * Avoid lifting, pushing, pulling or excessive movement of the affected extremity for 7 days. * Customary sexual activity may be resumed after 2 days-use caution not to use a position that strains or causes pain to the affected extremity. * No driving for 24 hours. * NO SMOKING. * Avoid straining for bowel movements for 7 days. * Gentle walking on level ground is allowed. * Returning to work will depend on the type of procedure and the results. Your doctor will discuss this with you. CALL YOUR DOCTOR FOR ANY OF THE FOLLOWING: *If bleeding from the puncture site occurs- Apply gentle pressure to site with clean cloth and call your doctor or EMS. * If a knot or lump forms under the skin, increases in size, or causes pain. * If bruising appears to be worsening or moving further down your leg instead of disappearing. * Temperature above 101 F. CARE OF YOUR GROIN INCISION; * Bruising or purple discoloration of the skin near the puncture site is common. * You may shower only, no bathtub bathing for 5 days. Be careful to avoid slipping as your leg may feel stiff. * If a closure device was used on your femoral artery, please see the attached guide regarding care of the device and your leg. * Leave dressing on FOR 24 hours. CARE OF YOUR WRIST INCISION; * Bruising or purple discoloration of the skin near the puncture site is common. * You may shower. * DO NOT submerge wrist. * Leave dressing on FOR 24 hours. DANIELLE ANGELES MD Sep 05, 2019 12:19
[2019-09-05] MEDS ORDERED: ATOR10TA PO ×2 (12:21)
[2019-09-05] MEDS ORDERED: ISOS30TA3 PO ×2 (12:21)
--- NOTE | 2019-09-05 12:24 | Cardiac Cath Report ---
Cardiac Cath Report Physician (s)/Pigment [employer] Lacquer Mixer (s) Physician DANIELLE ANGELES MD Pre-Procedure Diagnosis Pre-Procedure Diagnosis: Chest pain, coronary artery disease Post-Procedure Note Procedure Start Date: Sep 05, 2019 Name of Procedure: Left heart catheterization Left ventriculogram Findings/Procedure Note PROCEDURE NOTE: 74 years old gentleman with history of coronary artery disease, multiple intervention the past, admitted with chest pain. Decided to proceed with cardiac catheterization possible PTCA due to his extensive history. After explaining the procedure to the patient, all pros and cons were explained, all questions were answered. The patient signed the consent and then he was placed on the cardiac catheterization laboratory. Groin was prepped SL fashion local anesthesia was used. Sheath placed in the right femoral artery artery. Madan right and left catheter were used to access the coronary system. Madan right was prolapsed of the left ventricular cavity, pressure was measured left ventricular gram was done. At the end of the procedure the sheath was removed. Closure device was used FINDINGS: Hemodynamics LV 110/20, end-diastolic pressure of 20 Aorta 115/52 mean of 76 ANATOMY: Left Main is free of obstructive disease Left Anterior Descending has mild to moderate disease at the proximal portion nonobstructive disease Left Circumflex has mild disease nonobstructive disease Right Coronory Artery has multiple stents with mild to moderate in-stent restenosis at the midportion nonobstructive disease LV Gram is normal in size with normal contraction. Estimated ejection fraction 60 percent CONCLUSION: 1. Multiple stents in the right coronary artery with [id number] instent restenosis nonobstructive disease 2. Mild to moderate disease in the proximal LAD nonobstructive disease 3. Normal left ventricular size and systolic function estimated ejection fraction 60 percent DISCUSSION AND RECOMMENDATION: Medical therapy is recommended, I will add isosorbide and add statin to his current medication Anesthesia Type: Conscious Sedation Estimated blood loss (mL): 25 ml Contrast Amount: 65 ml Total Radiation Dose: 630 mGy Post-Procedure Diagnosis Post-operative diagnosis: Chest pain Coronary artery disease Hypertension Hyperlipidemia DANIELLE ANGELES MD Sep 05, 2019 12:24
[2019-09-05] MEDS ORDERED: PATIENT MAY USE OWN MEDS, ALL PO SCH (12:30)
== END 2019-09-05 16:50 | disposition home or self-care (01) ==
LOC: EDUNIT# 20:09 → ER 20:10 → CSD 21:20 → EDPENDDISTM 09-05 16:30
PROVIDERS: ADMIT Family Medicine; ATTEND Family Medicine
DX: I25.110 Atherosclerotic heart disease of native coronary artery with unstable angina pectoris (principal); E78.00 Pure hypercholesterolemia, unspecified; E78.5 Hyperlipidemia, unspecified; I10 Essential (primary) hypertension; G89.29 Other chronic pain; M54.9 Dorsalgia, unspecified; M19.90 Unspecified osteoarthritis, unspecified site; K21.9 Gastro-esophageal reflux disease without esophagitis; K59.09 Other constipation; F32.9 Major depressive disorder, single episode, unspecified; F41.9 Anxiety disorder, unspecified; Z79.82 Long term (current) use of aspirin; Z79.84 Long term (current) use of oral hypoglycemic drugs; Z79.899 Other long term (current) drug therapy; Z87.891 Personal history of nicotine dependence; Z90.89 Acquired absence of other organs; Z83.3 Family history of diabetes mellitus; Z82.3 Family history of stroke
CPT/HCPCS: 36415; 80053; 80061; 82150; 82550; 82553; 82962; 83690; 83735; 83874; 83880; 84484; 85025; 85610; 85730; 87081; 93005; 93041; 93458

== ENCOUNTER → 2019-09-04 | Outpatient (CLI) | payer MEDICARE ==
[~2019-09-04] MED LIST changes: +ATOR10TA PO; +ISOS30TA3 PO; -METO-387 PO; -MONT10TA24 PO; +MONT10TA26 PO; +MTP25TSR PO; -RT-ALBUTEROL SULF 2.5 MG/3 ML PRE-MIX VIAL INH ONE
[2019-09-04 12:55] LABS: BASOPHILS # (AUTO) 0.1 10^3/uL (0.0-0.1); BASOPHILS % (AUTO) 1 % (0-10); EOSINOPHILS # (AUTO) 0.2 10^3/uL (0.0-0.3); EOSINOPHILS % (AUTO) 3 % (0-10); HEMATOCRIT 42 % (40-54); LYMPHOCYTES # (AUTO) 1.6 X 10^3 (1.0-4.0); LYMPHOCYTES % (AUTO) 25 % (12-44); MEAN CORPUSCULAR HEMOGLOBIN 32 PG (25-34); MEAN CORPUSCULAR HGB CONC 35 G/DL (32-36); MEAN CORPUSCULAR VOLUME 90 FL (80-99); MEAN PLATELET VOLUME 8.9 FL (7.4-10.4); MONOCYTES # (AUTO) 0.9 X 10^3 (0.0-1.0); MONOCYTES % (AUTO) 13 % (0-12); NEUTROPHILS # (AUTO) 3.7 X 10^3 (1.8-7.8); NEUTROPHILS % (AUTO) 58 % (42-75); PLATELET COUNT 251 10^3/uL (130-400); RED CELL DISTRIBUTION WIDTH 12.5 % (10.0-14.5); WHITE BLOOD COUNT 6.4 10^3/uL (4.3-11.0)
[2019-09-04 13:13] LABS: ALANINE AMINOTRANSFERASE 44 U/L (0-55); ALBUMIN 4.6 GM/DL (3.2-4.5); ALKALINE PHOSPHATASE 55 U/L (40-136); BILIRUBIN,TOTAL 1.3 MG/DL (0.1-1.0); BUN/CREATININE RATIO 12; CARBON DIOXIDE 26 MMOL/L (21-32); CHLORIDE 100 MMOL/L (98-107); CREATINE KINASE 475 U/L (30-200); CREATININE SERUM 1.17 MG/DL (0.60-1.30); GFR ESTIMATED > 60; GLUCOSE 116 MG/DL (70-105); POTASSIUM 3.8 MMOL/L (3.6-5.0); SODIUM 133 MMOL/L (135-145); TOTAL PROTEIN 7.5 GM/DL (6.4-8.2)
--- NOTE | 2019-09-04 14:02 | Diagnostic Imaging Report ---
EXAMINATION: Chest 1 view HISTORY: CHEST PAIN COMPARISON: Chest radiograph on 04/18/2017. CT chest on 09/03/2018. FINDINGS: The lung volumes are normal. No focal consolidation is seen. Micronodules seen on the chest CT performed same date are not well seen on this exam. No large pleural effusion or pneumothorax is seen. The cardiomediastinal silhouette is normal in size and contour. No acute osseous abnormality is seen. IMPRESSION: 1. No focal consolidations or pulmonary masses. Dictated by: Dictated on workstation # [id number]
== END ==
LOC: CARD 12:33
PROVIDERS: ATTEND Nurse Practitioner Family
DX: R07.9 Chest pain, unspecified (principal)
CPT/HCPCS: 36415; 71045; 80053; 82550; 83874; 84443; 84484; 85025; 93005

== ENCOUNTER → 2019-11-25 | Outpatient (CLI) | payer MEDICARE ==
[~2019-11-25] MED LIST changes: +ATOR10TA PO; +ISOS30TA3 PO
--- NOTE | 2019-11-25 11:19 | Diagnostic Imaging Report ---
CT Lung Screening INDICATION:65 pack-year smoking history TECHNIQUE: Noncontrast, low-dose CT imaging performed according to the lung cancer screening protocol. Auto Exposure Controls were utilize during the CT exam to meet ALARA standards for radiation dose reduction. COMPARISON:09/03/2018 FINDINGS:The previous CT chest exam of 09/03/2018 noted 2 micronodules in the right upper lobe measuring approximately 3.1 and 3.5 mm in size. These nodules seem stable when compared to the prior exam of 11/07/2017. On this study the 3.1 mm nodule now measures 3.9 (image 36 series 2). The 3.5 mm nodule now measures 3.3 mm (image 7 series 2). There is no new parenchymal lung mass identified. The chronic pulmonary changes seen in the prior study are again evident. There is no sign of failure, pneumonia or a pleural effusion indicating an acute abnormality. The heart is stable in size. Coronary artery calcifications are again seen. The aorta is not abnormally dilated. The mediastinal nodes seen on the prior study are unchanged. The thyroid gland where visualized is unremarkable. The images through the upper abdomen failed to show any sign of an acute abnormality. The bone windows are unremarkable for fracture or for destructive lesion. IMPRESSION: 1. The small nodule in the right upper lobe does measure slightly greater than on the prior exam. This nodule still most likely a benign process. Even so, a short-term (6 month) followup CT low-dose lung cancer screening exam would be recommended for further study. 2. The overall appearance of the chest is otherwise stable. No other nodule has developed and there is no sign of an acute cardiopulmonary abnormality. LUNG-RADS CATEGORY: 3 MODIFIER: OTHER SIGNIFICANT FINDINGS: Dictated by: Dictated on workstation # [id number]
== END ==
LOC: RAD 10:06
PROVIDERS: ATTEND Nurse Practitioner Family
DX: Z12.2 Encounter for screening for malignant neoplasm of respiratory organs (principal); R91.8 Other nonspecific abnormal finding of lung field; F17.201 Nicotine dependence, unspecified, in remission

== ENCOUNTER → 2020-06-23 | Outpatient (CLI) | payer MEDICARE ==
[~2020-06-23] MED LIST changes: +AMLO-250 PO; -AMLO5TAB9 PO; +ASPI-1238 PO; -ASPI-983 PO; +HOLD METFORMIN - RECEIVED CONTRAST 20 ML VIAL IV SCH; +IOHEXOL 350 MG/ML 100 ML (OMNIPAQUE 350) VIAL IV ONE; -MONT10TA26 PO; +MONT10TA97 PO; +NS 100 ML (IVPB) BAG IV ONE; -PANT40TA3 PO; +PANT40TA52 PO
[2020-06-23 10:44] LABS: BUN/CREATININE RATIO 14; GFR ESTIMATED > 60
--- NOTE | 2020-06-23 12:48 | Diagnostic Imaging Report ---
PROCEDURE: CT chest with contrast only. TECHNIQUE: Multiple contiguous axial images were obtained through the chest after administration of intravenous contrast. Auto Exposure Controls were utilized during the CT exam to meet ALARA standards for radiation dose reduction. DATE: June 23, 2020. COMPARISON: CT chest November 25, 2019, September 03, 2018, November 07, 2017, and October 02, 2016. INDICATION: 75-year-old male, right upper lobe pulmonary nodule. FINDINGS: There is a 3 mm right upper lobe pulmonary nodule on axial image 29 which is stable since at least October 02, 2016. This is consistent with a benign nodule given greater than 2 year stability. There is an additional 3 mm right upper lobe pulmonary nodule on axial image 73 which is also unchanged since October 02, 2016 and consistent with a benign nodule. There is no new or enlarging pulmonary nodule. There are upper lobe predominant findings of emphysema. There is pleural parenchymal scarring in the lung apices. There is no additional focal airspace consolidation. There is no pneumothorax. There is no pleural effusion. There is no identified pulmonary embolus. The main pulmonary artery is normal in caliber. The heart is not enlarged. There are coronary artery calcifications and additional areas of atherosclerotic disease. There are subcentimeter short axis mediastinal and hilar lymph nodes. There is no identified lymph node at the level of the chest specifically meeting CT size criteria for adenopathy. There is diffuse fatty infiltration of the liver. The imaged portions of the upper abdomen are unremarkable. There are multilevel degenerative changes of the spine. There is no identified acute bony abnormality. IMPRESSION: 1. There is a 3 mm right upper lobe pulmonary nodule, stable since at least October 02, 2016, consistent with benign etiology. No further followup is needed. 2. Upper lobe predominant findings of emphysema. 3. No acute cardiopulmonary abnormality. 4. Diffuse fatty infiltration of the liver. Dictated by: Dictated on workstation # [id number]
== END ==
LOC: RAD 11:15
PROVIDERS: ATTEND Nurse Practitioner Family
DX: J43.9 Emphysema, unspecified (principal); R91.1 Solitary pulmonary nodule; K76.0 Fatty (change of) liver, not elsewhere classified
CPT/HCPCS: 36415; 71260; 82565; 84520

== ENCOUNTER → 2021-08-31 | Outpatient (CLI) | payer MEDICARE ==
[~2021-08-31] MED LIST changes: -HOLD METFORMIN - RECEIVED CONTRAST 20 ML VIAL IV SCH; -IOHEXOL 350 MG/ML 100 ML (OMNIPAQUE 350) VIAL IV ONE; -ISOS30TA3 PO; +ISOS30TA82 PO; +MONT-40 PO; -MONT10TA97 PO; -NS 100 ML (IVPB) BAG IV ONE
--- NOTE | 2021-08-31 12:21 | Diagnostic Imaging Report ---
TIME OF EXAM: 08/31/2021 10:51 AM REASON FOR EXAM: Lung cancer screening. 53 pack year smoking history. COMPARISON: 06/23/2020. TECHNIQUE: Low Dose CT helical images obtained through the chest. Sagittal and coronal reformats were obtained and reviewed. Dose reduction techniques were utilized. CTDI vol: 2.22 mGy FINDINGS: Nodules: -- A) 4] mm, indeterminate noncalcified solid right upper lobe nodule (image 78, series 2) -- B) 4] mm, indeterminate noncalcified solid right upper lobe nodule (image 100 series 2) Lungs: Centrilobular emphysema is seen, greatest in the lung apices. There is biapical scarring. No evidence of honeycombing. There is no appreciable bronchiectasis. No pulmonary mass or consolidation is present. Small amount of dependent atelectasis is present. No central endoluminal airway lesion is seen. Heart and Mediastinum: Heart size is within normal limits. Small amount of coronary calcifications are present. Aortic atherosclerosis is present without aneurysm. No pericardial effusion is present. Mildly prominent mediastinal lymph nodes are seen, similar to the prior exam. No new pathologic lymphadenopathy in the chest. Normal size and attenuation of the visualized thyroid gland. Pleura: Normal pleural spaces. No effusion or pneumothorax. No pleural nodularity or mass. Abdomen: There is hepatic steatosis. Bones and soft tissues: Regional skeletal and soft tissue structures are age-appropriate. IMPRESSION: 1. Subcentimeter pulmonary nodules measuring up to 0.4 cm in the right upper lobe. No new suspicious pulmonary nodules. Recommend continued surveillance with low-dose chest CT in 12 months to ensure stability. 2. No thoracic lymphadenopathy. 3. Centrilobular emphysema with biapical scarring. 4. Mildly prominent mediastinal lymph nodes. These have not significantly changed since the prior exam. 5. Hepatic steatosis. Result code: Category 2: Benign Appearance or Behavior Follow up: Continue annual screening with LDCT in 12 months Dictated by: Dictated on workstation # [id number]
== END ==
LOC: RAD 10:45
PROVIDERS: ATTEND Internal Medicine Critical Care Medicine
DX: Z12.2 Encounter for screening for malignant neoplasm of respiratory organs (principal); J43.2 Centrilobular emphysema; J98.4 Other disorders of lung; K76.0 Fatty (change of) liver, not elsewhere classified; R91.8 Other nonspecific abnormal finding of lung field; Z87.891 Personal history of nicotine dependence
CPT/HCPCS: 71271

== ENCOUNTER 2022-09-18 12:01 | Emergency (ER) | payer MEDICARE ==
[~2022-09-18] VITALS: Ht 180.3 cm; Wt 99.7 kg
[2022-09-18] MEDS ORDERED: ASPIRIN 81 MG CHEW (CHILDREN'S ASA) PO ONE (12:15)
[2022-09-18 12:19] LABS: BASOPHILS # (AUTO) 0.1 10^3/uL (0.0-0.1); BASOPHILS % (AUTO) 2 % (0-10); EOSINOPHILS # (AUTO) 0.2 10^3/uL (0.0-0.3); EOSINOPHILS % (AUTO) 3 % (0-10); HEMATOCRIT 49 % (40-54); HEMOGLOBIN 17.1 g/dL (13.3-17.7); LYMPHOCYTES # (AUTO) 1.7 10^3/uL (1.0-4.0); LYMPHOCYTES % (AUTO) 26 % (12-44); MEAN CORPUSCULAR HEMOGLOBIN 32 pg (25-34); MEAN CORPUSCULAR HGB CONC 35 g/dL (32-36); MEAN CORPUSCULAR VOLUME 91 fL (80-99); MEAN PLATELET VOLUME 9.5 fL (9.0-12.2); MONOCYTES # (AUTO) 0.6 10^3/uL (0.0-1.0); MONOCYTES % (AUTO) 9 % (0-12); NEUTROPHILS # (AUTO) 3.9 10^3/uL (1.8-7.8); NEUTROPHILS % (AUTO) 60 % (42-75); PLATELET COUNT 258 10^3/uL (130-400); WHITE BLOOD COUNT 6.5 10^3/uL (4.3-11.0)
--- NOTE | 2022-09-18 12:19 | ED Chest Pain ---
General Chief Complaint: Chest Pain Stated Complaint: CHEST PAINS Nursing Triage Note: PT AMB TO ED BY POV FROM DR. ANGELES'S OFFICE WITH C/O CP BEGINNING 08/28. REPORTS L SIDED CP THAT RADIATES UP THE BACK OF HIS NECK, RELIEVED WITH EXERTION. REPORTS HE WAKES UP WITH THE PAIN AND IT STARTS GETTING BETTER THROUGHOUT THE DAY. PAIN IS NOT RELIEVED WITH NITRO, TAKES 81 MG ASA DAILY. PT REPORTS LIGHT HEADEDNESS WITH PAIN. Source: patient Exam Limitations: no limitations History of Present Illness Date Seen by Provider: Sep 18, 2022 Time Seen by Provider: 12:04 Initial Comments 77-year-old male with history of coronary artery disease presents to the emergency department for chest pain. He tried to go to the cardiology clinic to get an EKG but he was sent here due to the nature of his symptoms. He sees Dr. Cheney. Symptoms present since about the sixth of this month. He has sharp left-sided chest pain that seems to be worse in the morning. It radiates up his left neck and into the posterior portion of his neck. He has had similar pains in the past. Symptoms do seem to get better throughout the day. They do not seem to be worse when lying flat. He has no unilateral lower extremity pain, sw elling and no history of blood clots. He does have 4 cardiac stents with the most recent one being in 2013 or 2014. He states he has had 3 heart cath since that time. I reviewed outside records available to me from the most recent heart cath in 2019. 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 He denies any fevers chills. He has chronic COPD and states his shortness of breath is at baseline for him. No change in his chronic productive cough. He has used nitroglycerin at home without any relief of his pain. He does endorse sometimes he gets lightheaded when the pain is present but actually but the pain is improved with exertion All other systems reviewed and negative except documented per HPI. Voice recognition software was used to help create this chart Allergies and Home Medications Allergies Coded Allergies: No Known Drug Allergies (Verified , 08/31/17) Patient Home Medication List Home Medication List Reviewed: Yes Aspirin (Aspirin EC) 81 Mg Tablet., 81 MG PO DAILY, (Reported) Entered as Reported by: NICKI LAUREN on 08/13/18 0850 Atorvastatin Calcium (Lipitor) 10 Mg Tablet, 10 MG PO DAILY Prescribed by: DANIELLE ANGELES on 09/05/19 1221 Budesonide/Formoterol Fumarate (Symbicort 160-4.5 Mcg Inhaler) 10.2 Gm Hfa.aer.ad, 2 PUFF IH BID PRN for SHORTNESS OF BREATH, (Reported) Entered as Reported by: BHARATH ALFARO on 10/02/16 1543 Glipizide (Glipizide ER) 5 Mg Tab.er.24, 5 MG PO DAILY, (Reported) Entered as Reported by: NICKI LAUREN on 08/13/18 0850 Isosorbide Mononitrate (Isosorbide Mononitrate ER) 30 Mg Tab.er.24h, 30 MG PO DAILY Prescribed by: DANIELLE ANGELES on 09/05/19 1221 Levothyroxine Sodium (Levothyroxine Sodium) 25 Mcg Tablet, 25 MCG PO DAILY, (Reported) Entered as Reported by: BHARATH ALFARO on 10/02/16 1543 Losartan Potassium (Losartan Potassium) 100 Mg Tablet, 100 MG PO DAILY, (Reported) Entered as Reported by: CHERELLE CLAYTON on 08/30/17 1057 Metoprolol Succinate (Metoprolol Succinate) 25 Mg Tab.er.24h, 25 MG PO DAILY, (Reported) Entered as Reported by: NICKI LAUREN on 08/13/18 0850 Montelukast Sodium (Montelukast Sodium) 10 Mg Tablet, 10 MG PO HS, (Reported) Entered as Reported by: BHARATH ALFARO on 10/02/16 1518 Nitroglycerin (Nitroglycerin) 0.4 Mg Tab.subl, 0.4 MG SL UD PRN for CHEST PAIN, (Reported) Entered as Reported by: NICKI LAUREN on 04/18/17 1425 Pantoprazole Sodium (Pantoprazole Sodium) 40 Mg Tablet.dr, 40 MG PO DAILY, (Reported) Entered as Reported by: BHARATH ALFARO on 10/02/16 1543 Review of Systems Review of Systems Constitutional: see HPI Past Slszgnh-Rvlmer-Shtlzh Hx Patient Social History Tobacco Use?: No Use of E-Cig and/or Vaping dev: No Substance use?: No Alcohol Use?: No Immunizations Up To Date Tetanus Booster (TDap): Less than 5yrs Seasonal Allergies Seasonal Allergies: No Past Medical History Surgeries: Yes (SEE BELOW) Abdominal, Adenoidectomy, Cardiac, Coronary Stent, Tonsillectomy Respiratory: Yes (02 AT NIGHT) COPD, Emphysema Currently Using CPAP: No Currently Using BIPAP: No Cardiac: Yes (CATH--STENTS X 4) Coronary Artery Disease, High Cholesterol, Hypertension Neurological: No Reproductive Disorders: No Sexually Transmitted Disease: No Genitourinary: No Gastrointestinal: Yes (CONSTIPATION ALTERNATING WITH DIARRHEA) Gastroesophageal Reflux, Chronic Constipation Musculoskeletal: Yes Arthritis, Back Injury, Chronic Back Pain Endocrine: Yes HEENT: Yes (cataracts removed x 2-3 weeks ago) Cataract Hearing Impairment: Hard of Hearing Cancer: No Psychosocial: No Anxiety, Depression Integumentary: No Blood Disorders: No Adverse Reaction/Blood Tranf: No Family Medical History Alcoholism G8 BROTHER, Onset:20's - 25 Alzheimer's disease 19 FATHER, Onset:60 years & older Cardiovascular disease 19 FATHER, Onset:60 years & older 19 MOTHER, Onset:60 years & older Cataracts 19 MOTHER, Onset:60 years & older Completed stroke 19 FATHER, Onset:60 years & older Dementia 19 FATHER, Onset:60 years & older Diabetes mellitus 19 FATHER, Onset:60 years & older 19 MOTHER, Onset:60 years & older Hypercholesterolemia 19 FATHER, Onset:60 years & older 19 MOTHER, Onset:60 years & older Hypertension 19 FATHER, Onset:Unknown 19 MOTHER, Onset:Unknown Myocardial infarction 19 FATHER, Onset:60 years & older 19 MOTHER Respiratory disorder G8 BROTHER, Onset:50's - 60 No Family History of: AIDS Abdominal aortic aneurysm Jan's disease Aphasia Arthritis Asthma Cancer of mouth Colon cancer Congenital disease Congenital heart disease Coronary thrombosis Cystic fibrosis Deafness or hearing loss Drug abuse Dysphasia Fibrocystic disease of breast Gastroenteritis Glaucoma Headache disorder Infertility Kidney disease Neoplasm Not obtainable due to adoption Osteoporosis Parkinson's disease Prostate cancer Psychosocial problem Seizure disorder Severe allergy Thyroid disease Tuberculosis Visual disorder Heart Disease, Diabetes, Hypertension, Lung Disease, Stroke PSH: -UMBILICAL HERNIA REPAIR -MULTIPLE CARDIAC CATHS--STENTS X 4--LAST CATH 08/13/18--NO INTERVENTION AT THAT TIME -EGD/COLONOSCOPY -HEMORRHOIDECTOMY -CYSTS REMOVED FROM BACK Physical Exam Vital Signs Vital Signs - First Documented 09/18/22 12:04 Temp 36.6 Pulse 68 Resp 18 B/P (MAP) 177/83 (114) Pulse Ox 98 O2 Delivery Room Air Capillary Refill : Less Than 3 Seconds Height, Weight, BMI Height: 6'0.00" Weight: 233lbs. 0.0oz. 105.512181lz; 30.00 BMI Method:Stated General Appearance: No Apparent Distress, WD/WN HEENT: Normal ENT Inspection, Pharynx Normal Neck: Full Range of Motion, Non Tender, Supple Respiratory: Chest Non Tender, Lungs Clear, Normal Breath Sounds, No Accessory Muscle Use, No Respiratory Distress Cardiovascular: Regular Rate, Rhythm, No Edema, No Murmur, Normal Peripheral Pulses Gastrointestinal: Normal Bowel Sounds, No Organomegaly, No Pulsatile Mass, Non Tender, Soft Extremity: Normal Capillary Refill, Normal Inspection, Normal Range of Motion, Non Tender, No Calf Tenderness Neurologic/Psychiatric: Alert, Oriented x3, Normal Mood/Affect Skin: Normal Color, Warm/Dry Progress/Results/Core Measures Results/Orders Lab Results Laboratory Tests Test 09/18/22 12:09 Range/Units White Blood Count 6.5 4.3-11.0 10^3/uL Red Blood Count 5.43 4.30-5.52 10^6/uL Hemoglobin 17.1 13.3-17.7 g/dL Hematocrit 49 40-54 % Mean Corpuscular Volume 91 80-99 fL Mean Corpuscular Hemoglobin 32 25-34 pg Mean Corpuscular Hemoglobin Concent 35 32-36 g/dL Red Cell Distribution Width 11.9 10.0-14.5 % Platelet Count 258 130-400 10^3/uL Mean Platelet Volume 9.5 9.0-12.2 fL Immature Granulocyte % (Auto) 1 % Neutrophils (%) (Auto) 60 42-75 % Lymphocytes (%) (Auto) 26 12-44 % Monocytes (%) (Auto) 9 0-12 % Eosinophils (%) (Auto) 3 0-10 % Basophils (%) (Auto) 2 0-10 % Neutrophils # (Auto) 3.9 1.8-7.8 10^3/uL Lymphocytes # (Auto) 1.7 1.0-4.0 10^3/uL Monocytes # (Auto) 0.6 0.0-1.0 10^3/uL Eosinophils # (Auto) 0.2 0.0-0.3 10^3/uL Basophils # (Auto) 0.1 0.0-0.1 10^3/uL Immature Granulocyte # (Auto) 0.0 0.0-0.1 10^3/uL Sodium Level 138 135-145 MMOL/L Potassium Level 4.0 3.6-5.0 MMOL/L Chloride Level 104 98-107 MMOL/L Carbon Dioxide Level 23 21-32 MMOL/L Anion Gap 11 5-14 MMOL/L Blood Urea Nitrogen 20 H 7-18 MG/DL Creatinine 1.09 0.60-1.30 MG/DL Estimat Glomerular Filtration Rate 71 BUN/Creatinine Ratio 18 Glucose Level 132 H 70-105 MG/DL Calcium Level 9.6 8.5-10.1 MG/DL Corrected Calcium 8.5-10.1 MG/DL Total Bilirubin 0.7 0.1-1.0 MG/DL Aspartate Amino Transf (AST/SGOT) 30 5-34 U/L Alanine Aminotransferase (ALT/SGPT) 44 0-55 U/L Alkaline Phosphatase 63 40-136 U/L Troponin I < 0.028 <0.028 NG/ML Total Protein 8.0 6.4-8.2 GM/DL Albumin 4.6 H 3.2-4.5 GM/DL My Orders Orders - MARCELO GARCIA DO Ekg Tracing (09/18/22 12:03) Cbc With Automated Diff (09/18/22 12:13) Chest 1 View, Ap/Pa Only (09/18/22 12:13) Comprehensive Metabolic Panel (09/18/22 12:13) Monitor-Rhythm Ecg Trace Only (09/18/22 12:13) Ed Iv/Invasive Line Start (09/18/22 12:13) Aspirin Chewable Tablet (Baby Aspirin Ch (09/18/22 12:15) Troponin I Aaron (09/18/22 12:09) Medications Given in ED Current Medications Medications Dose Ordered Sig/Gena Route Start Time Stop Time Status Last Admin Dose Admin Aspirin 324 mg ONCE ONCE PO 09/18/22 12:15 09/18/22 12:16 DC 09/18/22 12:18 324 MG Vital Signs/I&O 09/18/22 12:04 Temp 36.6 Pulse 68 Resp 18 B/P (MAP) 177/83 (114) Pulse Ox 98 O2 Delivery Room Air Blood Pressure Mean: 114 Comment My interpretation of the EKG shows sinus rhythm 66 bpm. Normal intervals. Normal axis. No ST or T wave abnormalities. No ectopy. No STEMI. There are Q waves in lead III indicating possible old myocardial infarction. Departure Communication (Admissions) Patient is hemodynamically stable. I think he falls into the low risk category for ACS at this time given the duration of his symptoms, negative troponin and nonischemic EKG here. He does have reliable cardiology follow-up will schedule follow-up appointment for further testing. Symptoms are not classic anginal type symptoms as they are actually improved with exertion, worse in the morning and gradually get better throughout the day every single day. It is still possible that he has a fixed blockage but there is no evidence for acute coronary syndrome at this time. No evidence for PE. No pulmonary pathology on his chest x-ray for on exam. We discharged home in stable condition with close follow-up. Impression Primary Impression: Chest pain Qualified Codes: R07.9 - Chest pain, unspecified Disposition: 01 HOME, SELF-CARE Condition: Stable Departure-Patient Inst. Referrals: MORRIS FOX MD (PCP/Family) Primary Care Physician Patient Instructions: Chest Pain (DC) Add. Discharge Instructions: I do not think that your pain is likely coming from an emergent condition. Specifically there is no evidence for damage to the muscle of your heart or heart attack at this time. Should your symptoms persist I recommend you continue to follow-up with your primary doctor as well as Dr. Cheney. Please return to the emergency department should your symptoms change in any way concerning to you or become severe. Follow-up with primary doctor for any nonemergent needs. All discharge instructions reviewed with patient and/or family. Voiced understanding. MARCELO GARCIA DO Sep 18, 2022 12:19
[2022-09-18 12:29] LABS: ALBUMIN 4.6 GM/DL (3.2-4.5); CHLORIDE 104 MMOL/L (98-107); SODIUM 138 MMOL/L (135-145)
[2022-09-18 12:30] LABS: CALCIUM 9.6 MG/DL (8.5-10.1)
[2022-09-18 12:31] LABS: GLUCOSE 132 MG/DL (70-105)
[2022-09-18 12:32] LABS: CARBON DIOXIDE 23 MMOL/L (21-32)
[2022-09-18 12:33] LABS: BILIRUBIN,TOTAL 0.7 MG/DL (0.1-1.0)
[2022-09-18 12:34] LABS: ALKALINE PHOSPHATASE 63 U/L (40-136)
--- NOTE | 2022-09-18 12:34 | Diagnostic Imaging Report ---
INDICATION: Chest pain AP view of chest is obtained with comparison made study of 09/04/2019 FINDINGS: Heart size and pulmonary vascularity are within normal limits, and the lungs are clear, bilaterally. IMPRESSION: Unremarkable chest. Dictated by: Dictated on workstation # [id number]
[2022-09-18 12:35] LABS: CREATININE SERUM 1.09 MG/DL (0.60-1.30); GFR ESTIMATED 71
[2022-09-18 12:36] LABS: BUN/CREATININE RATIO 18
[2022-09-18 12:38] LABS: ALANINE AMINOTRANSFERASE 44 U/L (0-55)
[2022-09-18 13:47] VITALS: BP 142/82
== END 2022-09-18 13:47 | disposition home or self-care (01) ==
LOC: EDUNIT# 12:01 → ER 12:03
DX: R07.89 Other chest pain (principal); J43.9 Emphysema, unspecified; Z99.81 Dependence on supplemental oxygen; Z79.82 Long term (current) use of aspirin
CPT/HCPCS: 71045; 80053; 84484; 85025; 93005; 93041

== ENCOUNTER → 2022-10-09 | Outpatient (CLI) | payer MEDICARE ==
[~2022-10-09] MED LIST changes: +CATHETER FLUSH 10 ML SYR IV PRN; +IOHEXOL 350 MG/ML 100 ML (OMNIPAQUE 350) VIAL IV ONE; +NS 100 ML (IVPB) BAG IV ONE
--- NOTE | 2022-10-09 10:43 | Diagnostic Imaging Report ---
PROCEDURE: CT head with and without contrast. TECHNIQUE: Multiple contiguous axial images were obtained through the brain before and after the administration of intravenous contrast. Auto Exposure Controls were utilized during the CT exam to meet ALARA standards for radiation dose reduction. INDICATION: Headaches and malaise. COMPARISON: No prior studies are available for comparison. FINDINGS: The ventricles and sulci are within normal limits. No sulcal effacement or midline shift is identified. No acute intra-axial or extra-axial hemorrhage is detected. No abnormal enhancement following contrast administration is identified. The cisterns are patent. The visualized paranasal sinuses are clear. IMPRESSION: Unremarkable pre and post contrast CT of the brain. Dictated by: Dictated on workstation # [id number]
--- NOTE | 2022-10-09 12:19 | Diagnostic Imaging Report ---
CLINICAL INDICATION: Patient has chronic back pain. No known injury. EXAM: MRI of the cervical spine performed without IV contrast. Sequences include sagittal T2, sagittal T1, sagittal T2 fat-sat, and axial T2. COMPARISON: None. FINDINGS: There is no evidence of acute cervical spine fracture or dislocation. There is no significant abnormal cervical vertebral body signal. Limited visualization of posterior fossa is unremarkable. The cervical spinal cord is normal cord caliber with no abnormal signal. There is no significant paraspinal soft tissue abnormality. There is cervical spine vertebral body spurs and facet arthropathy. C1-C2: There is no significant central canal narrowing. C2-C3: There is mild right neural foramen narrowing. There is no significant central canal or left neural foramen narrowing. There is moderate left facet arthropathy and mild right facet arthropathy. C3-C4: There is a diffuse disk bulge with hypertrophic disk spurs posteriorly and into the foraminal regions bilaterally. There is moderate to severe central canal stenosis. There is severe bilateral neural foramen narrowing. There is ligamentum flavum buckling. There is moderate left facet arthropathy and mild right facet arthropathy. C4-C5: There is diffuse disk bulge with bilateral uncinate spurs. There is mild central canal narrowing. There is moderate right neural foramen narrowing and mild left neural foramen narrowing. C5-C6: There is diffuse disk bulge with hypertrophic uncinate spurs. There is mild central canal narrowing. There is severe bilateral neural foramen narrowing. C6-C7: There is asymmetric disk bulge with hypertrophic far lateral disk spurs. There is no significant central canal or neural foramen narrowing. C7-T1: There is no significant central canal or neural foramen narrowing. IMPRESSION: There is multilevel cervical spine degenerative disk disease, as described above. Dictated by: Dictated on workstation # [id number]
== END ==
LOC: CARD 08:50
PROVIDERS: ATTEND Internal Medicine Cardiovascular Disease
DX: I35.1 Nonrheumatic aortic (valve) insufficiency (principal); I25.10 Atherosclerotic heart disease of native coronary artery without angina pectoris; I51.7 Cardiomegaly; M50.21 Other cervical disc displacement, high cervical region; M48.02 Spinal stenosis, cervical region; M47.812 Spondylosis without myelopathy or radiculopathy, cervical region; R53.81 Other malaise; R51.9 Headache, unspecified
CPT/HCPCS: 70470; 72141; C8929; 93306

== ENCOUNTER → 2022-10-24 | Outpatient (CLI) | payer MEDICARE ==
[~2022-10-24] MED LIST changes: -CATHETER FLUSH 10 ML SYR IV PRN; +CATHETER FLUSH 10 ML SYR IVP PRN; -IOHEXOL 350 MG/ML 100 ML (OMNIPAQUE 350) VIAL IV ONE; -NS 100 ML (IVPB) BAG IV ONE; +REGADENOSON 0.4 MG/5 ML SYR (LEXISCAN) IV ONE
--- NOTE | 2022-10-25 16:47 | STRESS TEST ---
DATE OF SERVICE: 10/24/2022 RESTING AND POST REGADENOSON TECHNETIUM-99M TETROFOSMIN SPECT CT IMAGING ORDERING PHYSICIAN: Tabby Martinez APRN. PRIMARY PHYSICIAN: Dr. Cruz. OTHER PHYSICIAN: Dr. Zhang. CLINICAL DIAGNOSIS: Chest discomfort. Baseline images were carried out after injection of 10.33 mCi of technetium-99m tetrofosmin. This was followed by 0.4 mg regadenoson and 29.3 mCi of technetium-99m tetrofosmin for stress imaging. The electrocardiogram showed sinus rhythm at baseline. It did not change significantly with regadenoson infusion. The patient tolerated the procedure well. Review of images at rest and following stress does not indicate any significant perfusion defects consistent with myocardial ischemia or infarction. Gated images show normal global left ventricular systolic function with normal regional wall motion. Left ventricular ejection fraction is calculated to be 58%. CONCLUSIONS: 1. No evidence of any significant myocardial ischemia or infarction on this study. 2. Normal regional wall motion. 2. Normal global left ventricular systolic function with a calculated ejection fraction of 58%. Job ID: [id number] DocumentID: [id number] Dictated Date: 10/25/2022 12:53:30 Cake Mixer Date: 10/25/2022 16:45:00 Dictated By: DELORES ZHANG MD; JONES; FACP; FACC;
== END ==
LOC: CARD 11:00
PROVIDERS: ATTEND Nurse Practitioner Family
DX: R51.9 Headache, unspecified (principal); I25.10 Atherosclerotic heart disease of native coronary artery without angina pectoris
CPT/HCPCS: 78452; 93017; A9502

== ENCOUNTER → 2022-12-28 | Outpatient (CLI) | payer MEDICARE ==
[~2022-12-28] MED LIST changes: -CATHETER FLUSH 10 ML SYR IVP PRN; -LOSA100T57 PO; +LOSA100T58 PO; -REGADENOSON 0.4 MG/5 ML SYR (LEXISCAN) IV ONE
--- NOTE | 2022-12-28 11:49 | Diagnostic Imaging Report ---
PROCEDURE: CT chest without contrast. TECHNIQUE: Multiple contiguous axial images were obtained through the chest without the use of intravenous contrast. Auto Exposure Controls were utilized during the CT exam to meet ALARA standards for radiation dose reduction. INDICATION: J13.8, pulmonary nodule COMPARISON: 08/31/2021 and 06/23/2020 FINDINGS: No significant adenopathy within the chest. Mild scattered vascular calcifications without aneurysmal dilatation of thoracic aorta. The heart is within normal limits in size. No significant pericardial effusion. No pleural effusion. The trachea is patent. Biapical pleural parenchymal scarring. Background emphysematous changes are again identified, predominantly centrilobular nature. 0.4 cm noncalcified solid right upper lobe pulmonary nodule is stable since 2020. 0.3 cm noncalcified solid right upper lobe pulmonary nodule is stable from prior examination, series 3, image 51. 0.4 cm right upper lobe pulmonary nodule anteriorly is also present and stable since 2020, series 3, image 57. 0.4 cm right upper lobe pulmonary nodule is stable since 2020, series 3, image 69. 0.4 cm right lower lobe pulmonary nodule is stable since 2020, series 3, image 106. No new suspicious pulmonary nodule or mass. Diffusely decreased density of the liver. The visualized upper abdomen is otherwise unremarkable. Mild scattered osseous degenerative changes without acute osseous abnormality. IMPRESSION: Stable tiny 0.4 cm and smaller bilateral pulmonary nodules, unchanged from the prior examination with the majority appearing unchanged since 2020. No new suspicious pulmonary nodule. Background emphysematous changes. Fatty infiltration of the liver. Dictated by: Dictated on workstation # [id number]
== END ==
LOC: RAD 10:24
PROVIDERS: ATTEND Family Medicine
DX: J43.8 Other emphysema (principal); R91.8 Other nonspecific abnormal finding of lung field
CPT/HCPCS: 71250

== ENCOUNTER 2023-05-29 12:36 | Outpatient (CLI) | payer MEDICARE ==
[~2023-05-29] VITALS: Ht 182 cm; Wt 100.0 kg
[2023-05-29] MEDS ORDERED: GLIP10TA24 PO (14:55)
[2023-05-29] MEDS ORDERED: ROSU10TA28 PO (14:55)
[2023-05-29] MEDS ORDERED: AMLO-251 PO (14:55)
[2023-05-29] MEDS ORDERED: DOXA2TAB2 PO (14:55)
== END 2023-05-29 15:03 | disposition home or self-care (01) ==
LOC: PREOP 12:36
PROVIDERS: ATTEND Specialist
DX: Z01.818 Encounter for other preprocedural examination (principal)